=== PATIENT | male | born 1980 | race African-American/Black ===

== ENCOUNTER 2018-12-30 07:46 | Emergency (ER) | payer OTHER, SELFPAY ==
--- NOTE | 2018-12-30 08:14 | RAD ---
XR Chest Pa Lat STANDARD HISTORY: Shortness of breath with exertion COMPARISON: 06/04/2017 FINDINGS: The heart size is normal. The lungs are well expanded without focal areas of consolidation, pneumothorax or pleural effusions. No acute osseous abnormalities are seen.. IMPRESSION: No radiographic evidence of acute cardiopulmonary process.
[2018-12-30] MEDS ORDERED: cloNIDine 0.1 MG TAB ONE (08:26)
[2018-12-30 08:48] LABS: ALT (SGPT) 24 U/L (8-55); AST (SGOT) 38 U/L (5-34); Albumin 4.1 g/dL (3.5-5.0); Alkaline Phosphatase 53 U/L (40-150); Anion Gap 13 mmol/L (10-20); BUN (Urea Nitrogen) 32 mg/dL (8.9-20.6); Bilirubin, Total 1.1 mg/dL (0.2-1.2); Calc. Creatinine Clearance 0 mL/min (70-130); Calcium 9.2 mg/dL (7.8-10.44); Carbon Dioxide 27 mmol/L (22-29); Chloride 101 mmol/L (98-107); Estimated GFR-MDRD 24; Globulin 2.4 g/dL (2.4-3.5); Glucose 116 mg/dL (70-105); Potassium 3.1 mmol/L (3.5-5.1); Protein, Total 6.5 g/dL (6.0-8.3); Sodium 138 mmol/L (136-145)
[2018-12-30 08:53] LABS: Band 4 % (5-11); Bite Cells SLIGHT = 2-5 cells (100X) (0-1/hpf); Eosinophils 4 % (0-10); Hemoglobin 7.1 g/dL (14.0-18.0); Lymphocytes 22 % (21-51); MDiff Complete? YES; Mean Corpuscular HGB CONC 33.3 g/dL (32.0-36.0); Mean Corpuscular Hemoglobin 31.9 pg (27.0-31.0); Mean Corpuscular Volume 95.6 fL (78.0-98.0); Mean Platelet Volume 6.9 fL (7.4-10.4); Monocytes 5 % (0-10); Neutrophil 65 % (42-75); Platelet Count 73 thou/uL (130-400); Platelet Morphology Comment Appears Adequate; Polychromasia MODERATE = 3-4 cells (100X) (0-2/hpf); RBC Distribution Width 20.6 % (11.5-14.5); Red Blood Cell (RBC) Count 2.23 mill/uL (4.70-6.10); Schistocytes MARKED= >16 cells (100X) (0-1/hpf); White Blood Cell (WBC) Count 9.1 thou/uL (4.8-10.8)
[2018-12-30 08:59] LABS: CKMB 1.2 ng/mL (0-6.6)
[2018-12-30] MEDS ORDERED: niCARdipine 20MG In NaCl 20 MG/200 ML BAG ONE (09:08)
[2018-12-30 09:51] LABS: Lipase 43 U/L (8-78)
[2018-12-30 10:06] LABS: CK (CPK) 103 U/L (30-200)
--- NOTE | 2018-12-30 10:23 | CON ---
DATE OF CONSULTATION: HISTORY OF PRESENT ILLNESS: Mr. Chilel is a 38-year-old black male with known history of longstanding hypertension, admitted for uncontrolled hypertension. The patient has been on blood pressure medication for the last several years, amlodipine, metoprolol, and losartan. However, he presented to the ER with some shortness of breath on exertion. Chest x-ray was negative. However, blood pressure was noted to be 220/130. He is now being started on Cardene drip. REVIEW OF SYSTEMS: Positive for mild shortness of breath. No chest pain. No syncopal episode. No productive cough. No fever or chills. No diarrhea. No constipation. No dysuria. No urinary frequency. No fever or chills. Appetite and energy levels are fair. No diplopia. No joint pains. HOME MEDICATIONS: Includes amlodipine 10 mg tablet once a day, losartan one tablet daily dose unknown, and the patient is on metoprolol, dose unknown. PAST MEDICAL HISTORY: Longstanding hypertension. PAST SURGICAL HISTORY: Status post right ankle surgery. SOCIAL HISTORY: The patient lives in [place]. He is single, has one child. 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 Smoked one pack a day for the last 17 years. Occasional alcohol. Smokes marijuana occasionally. Education, high school. Denies any blood transfusion. He denies IV drug use. FAMILY HISTORY: No family history of ESRD. ALLERGIES: NONE. TRAUMA: Status post right ankle fracture. IMMUNIZATION: Not up-to-date. HOSPITALIZATIONS: Please see past medical history. PHYSICAL EXAMINATION: VITAL SIGNS: Blood pressure 210/130, heart rate 70. GENERAL: Awake, alert, comfortable, not in overt distress. SKIN: Adequate turgor. HEENT: He has pinkish conjunctivae. Anicteric sclerae. No neck mass. No carotid bruits. No JVD. CHEST: No deformities. LUNGS: Clear breath sounds. HEART: Normal sinus rhythm. No murmur. No gallops. No rubs. ABDOMEN: Globular, soft, nontender. No masses. EXTREMITIES: No edema. No deformities. NEUROLOGICAL: Awake and oriented to 3 spheres. Moving all extremities. No tremors or asterixis. No ataxia. LABORATORY DATA: December 30, 2018, sodium 138, potassium 3.1, chloride 101, carbon dioxide 27, BUN 32, creatinine 3.46, calcium is 9.2, AST 38, and ALT 24. CK is 975, troponin I 0.215. BNP is 1897. Albumin 4.1. Lipase pending. TSH 0.8. Chest x-ray; no CHF. No infiltrates. November 14, 2016, BUN 16 and creatinine 0.97. ASSESSMENT AND PLAN: 1. Acute kidney injury, this could be a hemodynamically-mediated renal dysfunction. Please note, the patient is on losartan. I would probably hold off the losartan. Consider starting on D5 half-normal saline at 100 mL/hour. We will review renal ultrasound with this patient and do a urinalysis. 2. Labile hypertension. Agree with IV Cardene drip. I will probably also start this patient on clonidine 0.1 mg b.i.d. 3. Mild hypokalemia, KCl 40 mEq one tab now. Thank you for the consult. We will continue to follow. Addendum: Patient evaluated by Hematology for his anemia and findings of schistocytes on peripheral smear - consideration for TTP was made and patient transferred to [place] where plamapheresis maybe available. Job ID: [id number] [facility] HEALTHAdryan
--- NOTE | 2018-12-30 10:52 | ULT ---
RENAL ULTRASOUND WITH DOPPLER EVALUATION: History: Renal failure. Hypertension. FINDINGS: Real-time imaging of the right and left kidneys were performed. The right kidney measures 10.7 cm. Th e left kidney 9.9 cm in size. No signs of any cyst, mass or obstruction. Slightly increased echogenic ity in the kidneys is present. DOPPLER EVALUATION WITH SPECTRAL ANALYSIS: The right renal artery velocity measurements are 102 cm/sec. The left are at 60 cm/sec. Aortic veloci ties are 136 cm/sec. Resistive index on the right is 0.63 and on the left 0.64. A small left pleural effusion is incidentally noted. The bladder is normal in position. IMPRESSION: 1. No definite evidence for renal artery stenosis. The left renal artery velocity measurements are sl ightly reduced as compared to the right side aortic velocity measurements. The resistive index is wit hin normal limits. 2. Slightly increased echogenicity to the cortex of both kidneys. Changes are minimal but could indic ate underlying medical renal parenchymal disease. 3. Small left pleural effusion. 4. The doppler portion with velocity measurements were somewhat difficult to obtain as the patient wa s unable to cooperate with breathing. This may also account for the somewhat reduced velocities on th e left side. POS: TPC
--- NOTE | 2018-12-30 11:04 | ULT ---
Please refer to the Renal Ultrasound for doppler findings. POS: TPC
--- NOTE | 2018-12-30 16:40 | CON ---
DATE OF CONSULTATION: REASON FOR CONSULTATION: Anemia and thrombocytopenia. HISTORY OF PRESENT ILLNESS: A 38-year-old male with longstanding uncontrolled hypertension, presenting to the hospital with shortness of breath. The patient states that he has had high blood pressure for approximately 15 years and is supposed to be taking amlodipine, metoprolol, and losartan, but that he is noncompliant with his medications and he says this is just because he is stubborn. On admission to the hospital, his blood pressure is noted to be as high as 265/ 140 and he has been started on a Cardene drip. His labs showed a hemoglobin of 7.1 and platelet count of 73 with marked schistocytes on peripheral smear. His BUN is 32 and creatinine 3.46 with an LDH of 975. Hematology was consulted to rule out TTP. The patient denies any neurologic symptoms, pain, or other complaints, other than shortness of breath. No fever or diarrhea. He states his symptoms have improved since he arrived to the ER and his blood pressure has improved. The patient denies any other medical problems. He is a long-term smoker, a pack a day for last 17 years with occasional marijuana use, but denies any illicit drugs. REVIEW OF SYSTEMS: Ten-point review of systems negative except as per HPI. PAST MEDICAL HISTORY: Hypertension. PAST SURGICAL HISTORY: Right ankle surgery. SOCIAL HISTORY: Smoker and marijuana use. No IV drugs. FAMILY HISTORY: Noncontributory. ALLERGIES: NONE. CURRENT MEDICATIONS: Reviewed. PHYSICAL EXAMINATION: VITAL SIGNS: Blood pressure 265/140 and on Cardene drip has improved to 180/ 100. The patient is not tachycardic. GENERAL APPEARANCE: The patient lying in bed, in no acute distress. HEENT: Normocephalic and atraumatic. CARDIAC: S1 and S2. Regular rhythm and rate. LUNGS: Clear to auscultation bilaterally. ABDOMEN: Soft, nondistended, and nontender. EXTREMITIES: There is no edema. NEUROLOGIC: Cranial nerves 2 through 12 are grossly intact. PSYCHIATRIC: Awake, alert, and oriented x3. SKIN: There is no rash. No petechiae noted. LABORATORY DATA: Hemoglobin 7.1, platelets 73, white blood cells 9.1, and marked schistocytes on smear. Sodium 138, potassium 3.1, BUN 32, creatinine 3.46, LDH 975, total bilirubin 1.1, AST 38, ALT 24, and alkaline phosphatase 53. IMAGING DATA: Chest x-ray, no pneumonia or CHF. ASSESSMENT AND PLAN: A 38-year-old male with hypertension, presenting with shortness of breath and found to have anemia with schistocytes and thrombocytopenia, along with acute kidney injury. 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 There is a concern for thrombotic thrombocytopenic purpura due to these findings. The patient's PLASMIC score is low risk with an approximate 4.3% risk of thrombotic thrombocytopenic purpura. 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 The treatment of this is blood pressure control. The treatment of thrombotic thrombocytopenic purpura is plasmapheresis and if there is any question of this disease process, then plasmapheresis should be promptly administered. We do not have plasmapheresis at this institution, so I do recommend transfer to [facility], where plasmapheresis can be promptly initiated if needed. As the patient does have a low risk of thrombotic thrombocytopenic purpura, he may be able to be monitored closely at [facility] with early initiation of plasmapheresis if needed. But, due to this, I do not believe he should stay at [facility] and should be transferred at this time. Thank you for this consult. Job ID: [id number] MTDD
== END 2018-12-30 11:05 | disposition short-term general hospital (02) ==
LOC: ERS 07:46
DX: M31.1 Thrombotic microangiopathy (principal); I11.0 Hypertensive heart disease with heart failure; I50.9 Heart failure, unspecified; N17.9 Acute kidney failure, unspecified; I16.0 Hypertensive urgency; F17.210 Nicotine dependence, cigarettes, uncomplicated
CPT/HCPCS: 36415; 71046; 76700; 76770; 80053; 82553; 83615; 83690; 83880; 84484; 85025; 85060; 93005; 96365; 96366

== ENCOUNTER 2019-05-19 09:38 | Inpatient (IN) | payer SELFPAY ==
[2019-05-19] MEDS ORDERED: Labetalol HCl 100 MG/20 ML VIAL ONE (10:04)
--- NOTE | 2019-05-19 10:17 | RAD ---
EXAM: Single view of the chest HISTORY: High blood pressure and shortness of breath COMPARISON: None FINDINGS: Single view of the chest shows an enlarged cardiomediastinal silhouette. There is no eviden ce of consolidation, mass, or pleural effusion. The bones are unremarkable. IMPRESSION: Cardiomegaly
[2019-05-19 10:25] LABS: Bilirubin Negative (Negative); Blood, Urine 3+ (Negative); Clarity Clear (Clear); Glucose, Urine (Dipstick) Normal (Negative); Leukocyte Negative Leu/uL (Negative); Nitrite Negative (Negative); Protein, Urine (Dipstick) 300 mg/dL (Neg-Trace); RBC/HPF Greater than 50 HPF (0-3); Squamous Epithelial 0-3 HPF (0-3); Urobilinogen Normal mg/dL (Less than 2)
[2019-05-19 10:26] LABS: Bacteria/HPF 1+ HPF (None Seen)
[2019-05-19 10:36] LABS: #Eosinphils 0.2 thou/uL (0.0-0.7); #Monocytes 0.8 thou/uL (0.11-0.59); #Neutrophils 5.9 thou/uL (1.40-6.50); %Basophils 0.5 % (0.0-1.0); %Eosinophils 2.4 % (0.0-10.0); %Lymphocytes 12.9 % (21.0-51.0); %Monocytes 10.5 % (0.0-10.0); %Neutrophils 73.7 % (42.0-75.0); Hemoglobin 7.7 g/dL (14.0-18.0); Mean Corpuscular HGB CONC 34.3 g/dL (32.0-36.0); Mean Corpuscular Hemoglobin 30.2 pg (27.0-31.0); Mean Platelet Volume 7.2 fL (7.4-10.4); Platelet Count 93 thou/uL (130-400); RBC Distribution Width 18.5 % (11.5-14.5); Red Blood Cell (RBC) Count 2.55 mill/uL (4.70-6.10); White Blood Cell (WBC) Count 7.9 thou/uL (4.8-10.8)
[2019-05-19 10:50] LABS: ALT (SGPT) 15 U/L (8-55); AST (SGOT) 20 U/L (5-34); Albumin 4.2 g/dL (3.5-5.0); Alkaline Phosphatase 66 U/L (40-150); Anion Gap 20 mmol/L (10-20); BUN (Urea Nitrogen) 66 mg/dL (8.9-20.6); Bilirubin, Total 0.9 mg/dL (0.2-1.2); Calc. Creatinine Clearance 0 mL/min (70-130); Calcium 9.4 mg/dL (7.8-10.44); Carbon Dioxide 22 mmol/L (22-29); Chloride 94 mmol/L (98-107); Estimated GFR-MDRD 7; Globulin 3.2 g/dL (2.4-3.5); Glucose 98 mg/dL (70-105); Protein, Total 7.4 g/dL (6.0-8.3); Sodium 133 mmol/L (136-145)
[2019-05-19 10:52] LABS: Potassium 2.6 mmol/L (3.5-5.1)
[2019-05-19] MEDS ORDERED: hydrALAZINE 20 MG/ML VIAL ONE (10:52)
[2019-05-19 10:55] LABS: Schistocytes MODERATE= 6-15 cells (100X) (0-1/hpf)
[2019-05-19 11:10] LABS: CKMB 2.5 ng/mL (0-6.6)
[2019-05-19] MEDS ORDERED: niCARdipine 20MG In NaCl 0 MG/0 ML BAG ONE (11:19)
[2019-05-19] MEDS ORDERED: Potassium Chloride 20 MEQ TAB ONE (11:19)
[2019-05-19] MEDS ORDERED: HYDROcodone/Acetaminophen 5/325 mg Tablet ONE (12:26)
[2019-05-19 14:34] LABS: Troponin I 0.169 ng/mL (< 0.028)
[2019-05-19] MEDS ORDERED: niCARdipine 20MG In NaCl 20 MG/200 ML BAG ONE ×2 (15:03→15:04)
[2019-05-19] MEDS ORDERED: Ondansetron PF 4 MG/2 ML Vial IVP PRN (15:19)
[2019-05-19] MEDS ORDERED: Acetaminophen 325 MG TAB PO PRN (15:19)
[2019-05-19] MEDS ORDERED: Senokot S 8.6-50 MG TAB PO PRN (15:19)
[2019-05-19] MEDS ORDERED: HYDROcodone/Acetaminophen 5/325 mg Tablet PO PRN (15:19)
[2019-05-19] MEDS ORDERED: HYDROcodone/Acetaminophen 7.5/325 mg Tablet PO PRN (15:26)
[2019-05-19] MEDS ORDERED: Morphine 2 MG/ML SYRINGE SLOW IVP PRN (15:51)
[2019-05-19] MEDS ORDERED: Amlodipine 5 MG TAB PO SCH (16:00)
[2019-05-19] MEDS ORDERED: Cephalexin 250 MG CAP PO SCH ×2 (16:00→21:00)
[2019-05-19] MEDS: Nicotine 21 MG PATCH TD SCH (16:11)
[2019-05-19 17:01] LABS: Troponin I 0.187 ng/mL (< 0.028)
[2019-05-19] MEDS: niCARdipine 25 MG in Sodium Chloride 0.9% 250 ML 250 ML IVPB SCH ×3 (17:09→21:20)
[2019-05-19] MEDS: Sodium Chloride 0.9% 1,000 ML IV SCH ×2 (17:18→22:05)
[2019-05-19 17:23] LABS: Amphetamine Not Detected (NotDetected); Barbiturates Screen Not Detected (NotDetected); Benzodiazepine Screen Not Detected (NotDetected); Cocaine Metabolite Screen Not Detected (NotDetected); Medtox Control Line Valid? VALID (VALID); Medtox Reader # READER 1; Methadone Not Detected (NotDetected); Methamphetamine Not Detected (NotDetected); Opiate Screen Not Detected (NotDetected); Oxycodone Screen Not Detected (NotDetected); Phencyclidine (PCP) Not Detected (NotDetected); THC/Cannabinoid Screen Not Detected (NotDetected); Tricyclic Screen Not Detected (NotDetected)
[2019-05-19] MEDS ORDERED: Aspirin 81 mg Enteric Coated Tablet PO SCH (19:00)
--- NOTE | 2019-05-19 19:07 | CON ---
DATE OF CONSULTATION: HISTORY OF PRESENT ILLNESS: Mr. Chilel is a 38-year-old black male, who presented to the ER for high blood pressure. He has not been compliant with his intake of blood pressure. On examination in the ER, the patient was also incidentally found to have worsening renal dysfunction. In addition, he was noted to be anemic with some schistocytes. He was seen at the emergency room back in December for a ? of TTP. He was sent to [place]. According to the patient, there was compressive workup with him, but he was never initiated on plasmapheresis. This makes me think that they may have not suspected TTP with him at [place]. On close questioning, the patient tells me he also left the hospital against medical advice. He now presents to the ER with worsening renal dysfunction. Of interest, this patient's mentation is clear and he denies any fever. He does have the acute kidney injury with some evidence of hemolysis as suggested by the schistocytes. He also has a very elevated blood pressure due to noncompliance. A discussion about dialysis was made also with this patient, which of course he declined. We are now here for further evaluation of his acute kidney injury. My bias is to just go ahead and proceed with a renal biopsy since this will help us with diagnosis with chronic renal failure. REVIEW OF SYSTEMS: Positive for generalized malaise. Positive for occasional shortness of breath. No fever. No chills. No confusion. No headache. No mentation changes. Appetite and energy level are decreased. No gross hematuria. No dysuria. No urinary frequency. No abdominal pain. Occasional back pain. CURRENT MEDICATIONS: 1. Amlodipine 5 mg p.o. daily. 2. Cephalexin 250 mg q.i.d. 3. Clonidine 0.2 mg p.o. b.i.d. 4. [place] 10/325 q.4 p.r.n. 5. Nicardipine drip. 6. Morphine sulfate 2 mg IV q.4. PAST MEDICAL HISTORY: 1. Chronic renal failure. 2. Hypertension. 3. History of anemia with schistocytes. PAST SURGICAL HISTORY: Status post right ankle surgery. SOCIAL HISTORY: The patient lives in [place]. He is single. He has one child. 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 Smoked one pack a day for the last 17 years. Occasional alcohol. Smokes marijuana occasionally. Education, high school. No blood transfusion. No IV drug abuse. FAMILY HISTORY: No family history of ESRD. ALLERGIES: NONE. TRAUMA: Status post right ankle fracture. IMMUNIZATION: Not up-to-date. HOSPITALIZATION: Please see past medical history. PHYSICAL EXAMINATION: VITAL SIGNS: Blood pressure is currently 171/78, heart rate 89, respiratory rate 23, pulse ox 99%. GENERAL: Awake, alert, comfortable, not in distress. SKIN: Adequate turgor. HEENT: Pale conjunctivae. Anicteric sclerae. NECK: No neck mass. No carotid bruits. No JVD. CHEST: No deformities. LUNGS: Clear breath sounds. No wheezing. No crackles. HEART: Normal sinus rhythm. No murmur. No gallops. No rubs. ABDOMEN: Globular, soft, nontender. No masses. EXTREMITIES: No edema. No deformities. NEUROLOGIC: Moving all extremities. No tremors. No asterixis. No ataxia. LABORATORY DATA: On May 19, 2019: White count 7.9, hemoglobin 7.7. Sodium 133, potassium 2.6, chloride 94, carbon dioxide 22, BUN 66, creatinine 10.19, AST 20, ALT 15, albumin is 4.2. Troponin-I 0.187. Chest x-ray, no CHF. Schistocytes moderate - 6 to 15 cells per high-power field. Renal ultrasound of December 30, 2018, shows no obstruction, increased echogenicity. Urinalysis of May 19, 2019, showed protein of 300 ASSESSMENT AND PLAN: 1. Chronic renal failure, unclear etiology, although thrombotic thrombocytopenic purpura versus hemolytic uremic syndrome is possibility. He does not have the systemic manifestation of thrombotic thrombocytopenic purpura. He may simply have a hemolytic uremic syndrome. We will reconsult Hematology. The patient was sent to [place] for further evaluation of possible thrombotic thrombocytopenic purpura, and at that time, no definitive diagnosis was made. However, this was also marred by the patient leaving against medical advice from the hospital. Since that time, he has not been compliant with his medications. 2. We can consider renal biopsy with this patient once he is more stable. 3. Labile hypertension, improved with IV nicardipine drip. 4. Proteinuria/acute kidney injury/chronic renal failure. My bias is to at least start him on normal saline at 125 mL/hour. He has declined hemodialysis. Consider consult with Hematology for further evaluation. Overall agree with current management. Job ID: [id number]
[2019-05-19] MEDS: Nitroglycerin 0.4 MG TAB (25 Tab Bottle) SL PRN ×2 (19:33→19:47)
[2019-05-19] MEDS: cloNIDine 0.2 MG TAB PO SCH (20:21)
[2019-05-19 23:35] LABS: Anisocytosis MODERATE=16-30 cells (100X) (0-5/hpf); Band 4 % (5-11); Eosinophils 1 % (0-10); Hemoglobin 6.9 g/dL (14.0-18.0); Lymphocytes 11 % (21-51); MDiff Complete? YES; Mean Corpuscular HGB CONC 33.7 g/dL (32.0-36.0); Mean Corpuscular Hemoglobin 29.8 pg (27.0-31.0); Mean Corpuscular Volume 88.6 fL (78.0-98.0); Mean Platelet Volume 5.9 fL (7.4-10.4); Monocytes 4 % (0-10); Neutrophil 80 % (42-75); Platelet Count 93 thou/uL (130-400); Platelet Morphology Comment Appears Decreased; RBC Distribution Width 18.4 % (11.5-14.5); Red Blood Cell (RBC) Count 2.31 mill/uL (4.70-6.10); Reflex for Review?? NO; Schistocytes MODERATE= 6-15 cells (100X) (0-1/hpf); White Blood Cell (WBC) Count 8.6 thou/uL (4.8-10.8)
--- NOTE | 2019-05-20 00:04 | HP ---
PRIMARY CARE PHYSICIAN: None. CHIEF COMPLAINT/REASON FOR ADMISSION: "I came to the emergency department because my tooth hurts and my blood pressure is too high." TIME OF EVALUATION: 12:30 p.m., patient is seen in the ED. HISTORY OF PRESENT ILLNESS: Mr. Chilel is a 38-year-old gentleman with a longstanding history of severe and uncontrolled hypertension, presenting to the hospital on a return visit, following a visit 12/30/2018, during which time he was noted to have elevated blood pressure, anemia, acute on chronic renal failure, thrombocytopenia, and schistocytes. He underwent Oncology evaluation in the emergency department at that time and was subsequently transferred to [facility] due to clinical concern for the possibility of TTP. In speaking with the patient today, he did not require plasmapheresis at [facility]. Per review of records, he was seen by Dr. Espinal, noting PLASMIC score low risk with approximately 4.3 risk of TTP. Mr. Chilel in [facility] ultimately signed himself out of the hospital on what sounds like hospital day 3. He returned home, takes antihypertensives intermittently, continue to smoke about 1 pack of cigarettes per day and noted over the last 1 week increasing pain overlying his right tooth. He endorses subjective fever, difficulty chewing the last 2 days. He has been off hydralazine for the last week, but doubled up on some Norvasc that he had left over from his last hospital discharge from [facility]. Denies any nausea, but does endorse easy bruisability. Appetite has been decent. No diarrhea, no focal neurological deficits. On presentation to the emergency department, he also reported chronic numbness in his back and down both legs that is intermittent, but more persistent for the last four days. His triage vital signs included a blood pressure of 247/130 each. He was placed on a Cardene infusion, chest x-ray showed cardiomegaly, but no pulmonary edema or pulmonary effusion, and lab revealed significant interval worsening of chronic renal disease, with creatinine of 10. Nephrology consultation was called, I also spoke separately with Dr. Zapata by phone. At this time, it is felt to be unlikely that the patient has TTP, more likely that his microangiopathic hemolytic anemia with schistocytes present on peripheral smear secondary to malignant hypertension, as was suspected during Hematology-Oncology evaluation in December as well. Subsequently, ICU referral made. PAST MEDICAL HISTORY: 1. History of illicit drug. 2. Tobacco dependence, ongoing. 3. Malignant/accelerated hypertension. PAST SURGICAL HISTORY: Right ankle surgery. 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 Endorses marijuana use. Denies IV drug use. FAMILY HISTORY: Both parents are living, both have essential hypertension. ALLERGIES: NONE. HOME MEDICATIONS: Norvasc, presently taking 10 mg p.o. twice daily, self discontinued hydralazine about 1 week ago, did not care for the side effects. REVIEW OF SYSTEMS: Full review of systems reviewed/addressed/negative except otherwise as mentioned. PHYSICAL EXAMINATION: VITAL SIGNS: At triage, blood pressure 247/138, pulse 87, respiratory rate 18, temperature 98.2, saturating 100% on room air. Followup blood pressures after initiation of nicardipine drip running from 160 to 190 systolic with diastolics 70 to 110. He has no oxygen requirement, is afebrile. GENERAL: Young gentleman, sitting up in bed, able to give a good history, speaking in full sentences. HEENT: Eyes with some mild conjunctival injection. No scleral icterus. Oropharynx is clear. He endorses pain in the posterior lower wisdom tooth area. LUNGS: Clear to auscultation bilaterally. HEART: Regular rate and rhythm with a systolic murmur 2/6 throughout the precordium. ABDOMEN: Soft/nontender/nondistended. EXTREMITIES: No clubbing/cyanosis/edema. NEUROLOGIC: He is able to move all extremities bilaterally to command, no focal neurological deficit. Proprioception and perception appear intact. SKIN: He does have some bruises present, particularly under the epicondylar space at the elbow and axilla. LABS/STUDIES: EKG personally reviewed, sinus rhythm at 86 beats per minute, left atrial enlargement, left ventricular hypertrophy, likely repolarization abnormality also present. Case discussed by phone with Dr. [place] from the emergency department as well as with Dr. Zapata from Nephrology. Mr. Chilel's hemoglobin is 7.7, hematocrit is 22.5, and platelet count is 93,000, MCV is 88. Chemistry panel; serum sodium 133, potassium 2.6, chloride 94, BUN 66, creatinine 10. Troponin levels are modestly abnormal at 0.197, essentially in the indeterminate range. BNP is elevated at 2522. Urinalysis reviewed, multiple red blood cells present, a few white blood cells are present, 3+ blood was present. Chest x-ray revealed cardiomegaly present, no pulmonary edema. However, no pleural effusions. IMPRESSION: 1. Malignant/accelerated hypertension. 2. Acute on chronic renal failure. 3. Thrombocytopenia. 4. Normocytic anemia. 5. Hypokalemia. 6. Possible dental infection. 7. Tobacco dependence. HOSPITAL COURSE: 1. Cardiology-indeterminate cardiac biomarkers, not clinically relevant in this scenario. Cardene drdarrell initiated, selective oral agents also in place. Compliance remains a significant barrier. Check 2D echocardiogram. 2. Renal-at this time, patient declines renal replacement therapy, Dr. Zapata will continue to monitor. Potassium has been repleted. 3. Pulmonary-recommend tobacco cessation. 4. Hematology-suspect schistocytes on peripheral smear secondary to malignant hypertension. Certainly some additional bone marrow pathology is present in this gentleman, may ultimately benefit from outpatient Hematology evaluation when blood pressure control has shown interval stability. 5. Infectious Disease-blood cultures x2. Empiric antibiotics to cover potential dental abscess. Follow up 2D echocardiogram. 6. Risk condition is high based on comorbidities/age/presentation. Job ID: [id number]
[2019-05-20] MEDS: niCARdipine 25 MG in Sodium Chloride 0.9% 250 ML 250 ML IVPB SCH ×2 (00:37→05:32)
[2019-05-20] MEDS: cloNIDine 0.1 MG TAB PO PRN (01:19)
[2019-05-20] MEDS: HYDROcodone/Acetaminophen 10/325 mg Tablet PO PRN ×2 (04:00→20:16)
[2019-05-20] MEDS: Sodium Chloride 0.9% 1,000 ML IV SCH ×2 (06:08→14:37)
--- NOTE | 2019-05-20 07:26 | CON ---
DATE OF CONSULTATION: HISTORY OF PRESENT ILLNESS: Jessenia Chilel is a 38-year-old gentleman, who presently did not have a primary care physician. He presents to the ER with uncontrolled hypertension and stop taking his blood pressure medication because they were making him little crazy. He was seen several months ago for anemia and thrombocytopenia. Pack-a-day smoker. Hypertension. Occasional marijuana use, but no other illicit drugs. Who apparently had schistocytes and thrombocytopenia, will repeat EKG. They thought he may have TTP. Apparently, he was transferred to [facility] as per the note from the veterinary medicine scientist. The patient is a terrible historian. He does not give any additional information at this time. Complaining of severe tooth pain causing discomfort and lack of thinking. PAST MEDICAL HISTORY: Hypertension only. No history of diabetes. PAST SURGICAL HISTORY: Ankle surgery, fracture. MEDICATIONS: Chronic medication apparently none that he can recollect, but apparently he did take hydralazine for a period of time. SOCIAL HISTORY: Does drink from time to time. 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 REVIEW OF SYSTEMS: Ten-point negative. ALLERGIES: NONE. PHYSICAL EXAMINATION: GENERAL: Appears to be in no acute distress. He is on a Cardene drip. VITAL SIGNS: Blood pressure , pulse 89, and respiratory rate 18. CHEST: Decreased breath sounds. No wheezing. CARDIAC: Normal S1 and S2. No gallops. ABDOMEN: No mass. LABORATORY DATA: Creatinine is elevated markedly at 10, BUN is 66. In December, his creatinine at the time when he was transferred to [facility] was 3.4. It is normal at 0.97 earlier. His BUN is 66, now it was 32 at the time of his transfer to [facility]. Hemoglobin and hematocrit of 7 and 23. BNP [id number]. Urine was normal. Chest x-ray shows cardiomegaly without any acute infiltrates. Otherwise on examination, he is in no distress. Chest, no wheezing or crackles. Cardiac, normal S1 and S2. No gallops. Abdomen, uncontrolled hypertension and acute renal failure. Apparently, pain in the tooth. I looked at physically, I did not see any obvious infection, anemia. PLAN: Continue antihypertensive, IV medication, and Cardene. Await input from Nephrology. Probably start oral antihypertensive medication. Pain relief for his tooth. Supportive care, PT. Consultation note, 70 minutes, 50% direct patient care. Job ID: [id number]
[2019-05-20 07:47] LABS: #Eosinphils 0.2 thou/uL (0.0-0.7); #Lymphocytes 1.2 thou/uL (1.20-3.40); #Monocytes 0.8 thou/uL (0.11-0.59); %Basophils 0.6 % (0.0-1.0); %Eosinophils 2.1 % (0.0-10.0); %Lymphocytes 16.7 % (21.0-51.0); %Monocytes 10.7 % (0.0-10.0); %Neutrophils 69.8 % (42.0-75.0); Mean Corpuscular Hemoglobin 30.1 pg (27.0-31.0); Mean Corpuscular Volume 88.6 fL (78.0-98.0); Mean Platelet Volume 11.2 fL (7.4-10.4); Platelet Count 113 thou/uL (130-400); RBC Distribution Width 18.3 % (11.5-14.5); Red Blood Cell (RBC) Count 2.32 mill/uL (4.70-6.10); White Blood Cell (WBC) Count 7.1 thou/uL (4.8-10.8)
[2019-05-20 07:58] LABS: Anion Gap 18 mmol/L (10-20); BUN (Urea Nitrogen) 59 mg/dL (8.9-20.6); Calc. Creatinine Clearance 13 mL/min (70-130); Carbon Dioxide 17 mmol/L (22-29); Chloride 102 mmol/L (98-107); Estimated GFR-MDRD 8; Glucose 90 mg/dL (70-105); Sodium 134 mmol/L (136-145)
[2019-05-20] MEDS ORDERED: Carvedilol 25 MG TAB PO SCH (08:00)
[2019-05-20] MEDS ORDERED: Carvedilol 3.125 MG TAB PO SCH ×2 (08:00→08:45)
[2019-05-20] MEDS: cloNIDine 0.2 MG TAB PO SCH ×2 (08:06→20:17)
[2019-05-20 08:10] LABS: Potassium 2.7 mmol/L (3.5-5.1)
[2019-05-20] MEDS ORDERED: Amlodipine 5 MG TAB PO SCH ×2 (08:30→09:00)
[2019-05-20] MEDS: Amlodipine 10 MG TAB PO SCH (08:41)
[2019-05-20] MEDS ORDERED: Carvedilol 6.25 MG TAB PO SCH (08:45)
--- NOTE | 2019-05-20 09:17 | PRG ---
DATE OF SERVICE: 05/20/2019 SUBJECTIVE: This morning, he is better. Complaining of less tooth pain, less chest pain, and shortness of breath. OBJECTIVE: VITAL SIGNS: Blood pressure is still elevated at 180/93, he is on Cardene. Pulse 80, respiratory rate 18. Afebrile. CHEST: Decreased breath sounds. No wheezing. CARDIAC: Normal S1, S2. No gallops. ABDOMEN: No masses. LABORATORY DATA: White count is 7, H and H is 7 and 20, platelet count is 113. Drug screen was negative. He got schistocytes. Potassium 2.7, creatinine is 9.2, BUN is 59. IMPRESSION: Uncontrolled hypertension, renal failure, thrombocytopenia. adjust blood pressure medication. Continue PT, supportive care. We will follow while in the ICU. Job ID: [id number] [facility]ITALAdryan
[2019-05-20] MEDS ORDERED: Potassium Chloride 20 MEQ TAB PO SCH (09:30)
[2019-05-20] MEDS: Cephalexin 250 MG CAP PO SCH (10:21)
[2019-05-20] MEDS: Minoxidil 2.5 MG TAB PO SCH (10:21)
--- NOTE | 2019-05-20 10:59 | PRG ---
DATE OF SERVICE: 05/20/2019 SUBJECTIVE: Mr. Chilel is a 38-year-old black male, who was seen for his chronic renal failure as well as labile hypertension. He was seen back on December due to an elevated creatinine. At that time, there was a suspicion he may have TTP. He was transferred to [place]. According to the patient, he never really received treatment. He did not undergo plasmapheresis. He was undergoing workup at that time. As previously mentioned in my note, the possibility is that the patient may not have TTP. He may have HUS due to the schistocytes on the CBC blood smear. Renal function has worsen over time. I offered hemodialysis, but the patient declined. I am still not ruling out a possible renal biopsy. The point against the renal biopsy is that renal failure is chronic in nature and may not give much histological information. No other complaints today. OBJECTIVE: VITAL SIGNS: Blood pressure is much improved. Blood pressure 188/92 with a heart rate of 80, respiratory rate 18, and pulse ox 98%. GENERAL: Noted to be awake, alert, comfortable, not in distress. SKIN: Adequate turgor. HEENT: He has a slightly pale conjunctivae. Anicteric sclerae. No neck mass. No carotid bruits. No JVD. CHEST: No deformities. LUNGS: Clear breath sounds. HEART: Normal sinus rhythm. No murmurs, gallops, or rubs. ABDOMEN: Globular, soft, nontender. No masses. EXTREMITIES: No edema. No deformities. MEDICATIONS: Medications of May 20, 2019 were reviewed. LABORATORY DATA: Laboratories of May 20, 2019; white count 7.1, hemoglobin 7. Sodium 134, potassium 2.7, chloride 102, carbon dioxide 17, BUN 59, creatinine 9.43, glucose 90, calcium 9. Troponin I 0.187. ASSESSMENT AND PLAN: 1. Hemolytic anemia-repeat CBC did not show any significant schistocytes at the present time. Hematology consult has already been done. Continue current supportive care. Continue IV hydration. 2. Chronic renal failure, unclear etiology. Consider renal biopsy. The point against the renal biopsy is that the renal dysfunction may be chronic in nature. Continue also IV hydration for the possible hemolytic anemia. 3. Anemia-evidence of hemolysis. In addition, once the blood pressure is better controlled, we will start Epogen. 4. Labile hypertension, improving. Add minoxidil 5 mg tablet daily. 5. The patient is still declining any invasive procedure such as dialysis and renal biopsy. I left my number for the father to call me. Job ID: [id number]
[2019-05-20 12:34] LABS: Ref Lab Test Ordered ADAMTS 13; Reference Lab Name LABCORP
[2019-05-20 15:12] VITALS: BMI 26.6
[2019-05-20] MEDS: Nicotine 21 MG PATCH TD SCH (16:31)
[2019-05-20] MEDS: Carvedilol 25 MG TAB PO SCH (16:36)
--- NOTE | 2019-05-20 17:36 | EKG ---
Test Reason : STAT Blood Pressure : / mmHG Vent. Rate : 093 BPM Atrial Rate : 093 BPM P-R Int : 138 ms QRS Dur : 090 ms QT Int : 450 ms P-R-T Axes : 048 006 008 degrees QTc Int : 559 ms Normal sinus rhythm Possible Left atrial enlargement Left ventricular hypertrophy Septal infarct , age undetermined cannot be excluded Prolonged QT Abnormal ECG Confirmed by JUNE SCHMITZ ([id number]) on 05/20/2019 5:36:21 PM Referred By: DUANE Confirmed By:JUNE SCHMITZ
--- NOTE | 2019-05-20 18:00 | PDOC.HOSPP ---
- Subjective Encounter Date: 05/20/19 Encounter Time: 15:40 Subjective: No CP, no nausea/vomiting/SOB/SPARKS. Resting comfortably, eating well. Declines HD catheter placement. - Objective Vital Signs & Weight: Vital Signs (12 hours) Temp BP Pulse Ox 05/20/19 16:00 97.7 F 05/20/19 08:41 188/92 H 05/20/19 08:40 188/92 H 05/20/19 08:07 180/93 H 05/20/19 08:06 180/93 H 05/20/19 08:00 99 05/20/19 07:00 98.1 F Weight Admit Weight 196 lb Weight 196 lb 6.91 oz Most Recent Monitor Data Heart Rate from ECG 76 NIBP 156/89 NIBP BP-Mean 111 Respiration from ECG 17 SpO2 95 I&O: 05/19/19 05/20/19 05/21/19 06:59 06:59 06:59 Intake Total 4174 2278 Output Total 1475 825 Balance 2771 1453 Result Diagrams: 05/20/19 07:18 05/20/19 07:18 Hospitalist ROS - Medication Medications: Active Medications Generic Name Dose Route Start Last Admin Trade Name Freq PRN Reason Stop Dose Admin Hydrocodone Bitart/Acetaminophen 1 tab 05/19/19 15:19 05/20/19 04:00 [place] 10/325 PO 1 tab Q4H PRN Administration Moderate Pain (4-6) Amlodipine Besylate 10 mg 05/20/19 09:00 05/20/19 08:41 Norvasc PO Not Given DAILY STEVEN Carvedilol 25 mg 05/20/19 17:00 05/20/19 16:36 Coreg PO 25 mg BID-WM STEVEN Administration Cephalexin 250 mg 05/20/19 09:00 05/20/19 10:21 Keflex PO 250 mg DAILY STEVEN Administration Clonidine 0.2 mg 05/19/19 21:00 05/20/19 08:06 Catapres PO 0.2 mg BID STEVEN Administration Clonidine 0.1 mg 05/19/19 20:27 05/20/19 01:19 Catapres PO 0.1 mg Q4H PRN Administration SBP > 160, DBP > 100 Sodium Chloride 1,000 mls @ 125 mls/hr 05/19/19 17:15 05/20/19 14:37 Normal Saline 0.9% IV 1,000 mls .Q8H STEVEN Administration Minoxidil 5 mg 05/20/19 09:00 05/20/19 10:21 Minoxidil PO 5 mg DAILY STEVEN Administration Morphine Sulfate 2 mg 05/19/19 15:51 05/19/19 15:58 Morphine SLOW IVP 2 mg Q4H PRN Administration BREAKTHRU PAIN Nicotine 21 mg 05/19/19 15:30 05/20/19 16:31 Nicoderm Patch TD Not Given Q24HR STEVEN Nitroglycerin 0.4 mg 05/19/19 18:52 05/19/19 19:47 Nitrostat SL 0.4 mg Q5MIN PRN Administration Chest Pain Sodium Chloride 10 ml 05/19/19 21:00 05/20/19 08:08 Flush - Normal Saline IVF 10 ml Q12HR STEVEN Administration - Exam General Appearance: NAD General - other findings: Resting comfortably Eye: anicteric sclera ENT: normocephalic atraumatic Neck: supple, no JVD Heart: RRR Heart - other findings: soft systolic flow murmur Respiratory: CTAB Gastrointestinal: soft, non-tender Extremities: no edema Skin: no rashes Neurological: no focal deficits Musculoskeletal: normal strength, no muscle wasting Psychiatric: A&O x 3 Hosp A/P (1) Acute renal failure Status: Acute (2) Microangiopathic hemolytic anemia Code(s): D59.4 - OTHER NONAUTOIMMUNE HEMOLYTIC ANEMIAS Status: Acute (3) Accelerated hypertension Code(s): I10 - ESSENTIAL (PRIMARY) HYPERTENSION Status: Acute (4) Tooth ache Code(s): K08.89 - OTHER SPECIFIED DISORDERS OF TEETH AND SUPPORTING STRUCTURES Status: Acute (5) Thrombocytopenia Code(s): D69.6 - THROMBOCYTOPENIA, UNSPECIFIED Status: Acute (6) Normocytic anemia Code(s): D64.9 - ANEMIA, UNSPECIFIED Status: Acute (7) Tobacco dependence Code(s): F17.200 - NICOTINE DEPENDENCE, UNSPECIFIED, UNCOMPLICATED Status: Acute (8) Hypokalemia Code(s): E87.6 - HYPOKALEMIA Status: Acute - Plan 1. Renal - discussed w/Dr. Zapata. Dialysis recommended, patient declines. Labs reviewed. 2. Toothache - keflex 3. Cards - HTN, minoxidil added, continue Norvasc/Coreg. Cardene off; transfer to tele; echo reading severe concentric LVH, grade II diastolic dysfunction, mild to moderate MR 4. 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 Once stabilized, may benefit from outpt heme workup. First, BP control is the priority. 5. Pulm - rec tobacco cessation 6. UDS negative 7. Potassium repletion given Transfer to tele.
[2019-05-21] MEDS: Sodium Chloride 0.9% 1,000 ML IV SCH ×4 (01:41→21:36)
[2019-05-21] MEDS: HYDROcodone/Acetaminophen 10/325 mg Tablet PO PRN (05:19)
[2019-05-21 06:14] LABS: #Eosinphils 0.2 thou/uL (0.0-0.7); #Lymphocytes 1.3 thou/uL (1.20-3.40); #Monocytes 0.6 thou/uL (0.11-0.59); #Neutrophils 3.4 thou/uL (1.40-6.50); %Basophils 0.7 % (0.0-1.0); %Eosinophils 3.5 % (0.0-10.0); %Lymphocytes 23.3 % (21.0-51.0); %Monocytes 10.2 % (0.0-10.0); %Neutrophils 62.4 % (42.0-75.0); Hemoglobin 7.2 g/dL (14.0-18.0); Mean Corpuscular HGB CONC 33.3 g/dL (32.0-36.0); Mean Corpuscular Hemoglobin 30.2 pg (27.0-31.0); Mean Corpuscular Volume 90.5 fL (78.0-98.0); Mean Platelet Volume 10.1 fL (7.4-10.4); Platelet Count 139 thou/uL (130-400); RBC Distribution Width 18.5 % (11.5-14.5); Red Blood Cell (RBC) Count 2.39 mill/uL (4.70-6.10); White Blood Cell (WBC) Count 5.5 thou/uL (4.8-10.8)
[2019-05-21 06:27] LABS: Anion Gap 17 mmol/L (10-20); BUN (Urea Nitrogen) 59 mg/dL (8.9-20.6); Calc. Creatinine Clearance 14 mL/min (70-130); Calcium 9.1 mg/dL (7.8-10.44); Carbon Dioxide 18 mmol/L (22-29); Chloride 104 mmol/L (98-107); Estimated GFR-MDRD 8; Glucose 81 mg/dL (70-105); Phosphorus 5.9 mg/dL (2.3-4.7); Potassium 3.5 mmol/L (3.5-5.1); Sodium 135 mmol/L (136-145)
[2019-05-21 06:33] LABS: Troponin I 1.458 ng/mL (< 0.028)
[2019-05-21] MEDS ORDERED: Aspirin 325 mg Enteric Coated Tablet PO SCH ×2 (09:00)
--- NOTE | 2019-05-21 09:00 | PRG ---
DATE OF SERVICE: 05/21/2019 SUBJECTIVE: This morning, he said he is better. No more pain. No tooth pain. No shortness of breath. OBJECTIVE: VITAL SIGNS: Saturations are 98% on room air, temperature 98, pulse 69, blood pressure improved 169/93. GENERAL: He is being slowly hydrated. CHEST: Decreased breath sounds. No wheezing. CARDIAC: Normal S1, S2. No gallops. ABDOMEN: No masses. LABORATORY DATA: Creatinine is still elevated at 8. White count normal, H and H 7 and 21, and platelet count is back to normal. IMPRESSION: Thrombocytopenia, uncontrolled hypertension, hypertrophic myocardium, renal failure. Nephrology following. Pulmonary choe, at this stage, nothing additional to offer. We will follow at a distance. Please call, if needed. Job ID: [id number]
--- NOTE | 2019-05-21 09:47 | PRG ---
DATE OF SERVICE: 05/21/2019 SUBJECTIVE: Mr. Chilel is a 38-year-old black male with known history of chronic renal failure, admitted for labile hypertension. Blood pressure is slightly improving. He has been started on p.o. minoxidil. We can increase this as needed. However, we also have noted his chronic renal failure has worsened over time. The exact etiology remains unknown. It is possible with the finding on the urinalysis of protein and hematuria, that he may have underlying FSGS. This morning, he has no new complaints. I have offered to initiate dialysis with him. He is still declining. He is uncertain whether he wants to proceed with this. The patient denies any chest pain, shortness of breath, nausea, or vomiting. OBJECTIVE: VITAL SIGNS: Blood pressure is 163/93, heart rate 69, respiratory rate 18, temperature 98, and pulse ox 97%. GENERAL EXAM: The patient is awake, alert, comfortable, not in distress. SKIN: Adequate turgor. HEENT: He has pale conjunctivae. Anicteric sclerae. NECK: No neck mass. No carotid bruits. No JVD. CHEST: No deformities. LUNGS: Clear breath sounds. No wheezing. No crackles. HEART: Normal sinus rhythm. No murmurs, gallops, or rubs. ABDOMEN: Globular, soft, nontender. No masses. EXTREMITIES: No edema. No deformities. MEDICATIONS: Medications of May 21, 2019, was reviewed. LABORATORY DATA: Laboratories of May 21, 2019, white count 5.5, hemoglobin 7.2, and platelet count 139,000. No evidence of schistocytes. Sodium 135, potassium 3.5, chloride 104, carbon dioxide 18, BUN 59, creatinine 8.81. GFR 8 mL/minute. Calcium 9.1, phosphorus 5.9. PTH is 385. ASSESSMENT AND PLAN: 1. Chronic renal failure. Exact etiology is unclear. Although with the proteinuria and hematuria, I suspect possibility of FSGS with him. Consider also doing hepatitis B and C profile as well as an ANCA with this patient for completion of the workup. I offered hemodialysis, the patient has declined. 2. Anemia. Start Epogen once the blood pressure is better controlled. 3. Hypertension. Increase minoxidil from 5 to 10 mg tablet once a day. 4. I am hesitant to proceed with a biopsy since I feel that with the chronic renal failure, we will not gain much information from a biopsy with this patient. 5. Overall agree with current management. Job ID: [id number]
[2019-05-21] MEDS: Amlodipine 10 MG TAB PO SCH (10:15)
[2019-05-21] MEDS: Carvedilol 25 MG TAB PO SCH ×2 (10:16→18:07)
[2019-05-21] MEDS: Cephalexin 250 MG CAP PO SCH (10:16)
[2019-05-21] MEDS: Minoxidil 2.5 MG TAB PO SCH (10:16)
[2019-05-21] MEDS: cloNIDine 0.2 MG TAB PO SCH (10:17)
[2019-05-21] MEDS: Sevelamer Carbonate 800 MG TAB PO SCH ×2 (11:44→18:07)
[2019-05-21 13:01] LABS: Platelet Count 147 thou/uL (130-400)
[2019-05-21 13:39] LABS: EPI 229 SEC (67-199)
[2019-05-21 13:44] LABS: ADP 144 SEC (39-127)
[2019-05-21 13:45] LABS: ADP Status Message No Message
[2019-05-21] MEDS: Nicotine 21 MG PATCH TD SCH (18:08)
[2019-05-21] MEDS: cloNIDine 0.1 MG TAB PO PRN (18:17)
[2019-05-21] MEDS ORDERED: NIFEdipine XL 30 MG TAB PO SCH (19:00)
[2019-05-21] MEDS: cloNIDine 0.1 MG TAB PO SCH (21:37)
--- NOTE | 2019-05-21 22:56 | CON ---
DATE OF CONSULTATION: 05/21/2019 REASON FOR CONSULTATION: 1. Severe uncontrolled hypertension. 2. Renal failure. 3. Anemia. 4. Non-compliance. 5. Increased troponin level, probably demand ischemia type 2 non-ST elevation myocardial infarction. HISTORY OF PRESENT ILLNESS: Mr. Chilel is a 38-year-old man with history of severe uncontrolled high blood pressure. The patient has a long history of uncontrolled hypertension. He was recently evaluated at [facility] in [place]. He was put on multiple medications including hydralazine, but did not feel well with these and therefore, he stopped taking all his medicines. The patient states he does not feel well with the medicines and therefore, he quit taking them. The patient did not have chest pain or pressure, but found to have increased cardiac enzymes, also severe concentric left ventricular hypertrophy. Blood pressures were recorded in the 195/105 range. The patient has also been diagnosed with possible TTP. The patient did respond to a Cardene infusion in [place]. His blood pressure was 247/130 at that time. PAST HISTORY: 1. Hypertension, not controlled. 2. Non-compliance. SOCIAL HISTORY: He smokes a pack of cigarettes per day. 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 FAMILY HISTORY: The patient tells me his father is a clam dredger. ALLERGIES: NONE. MEDICATIONS: 1. Amlodipine 10 mg twice a day, not taking. 2. Hydralazine, not taking. Did not feel well on hydralazine. REVIEW OF SYSTEMS: Reviewed. Please see the notes. PHYSICAL EXAMINATION: VITAL SIGNS: Initial blood pressure is 247/138 and pulse 87. HEENT: Eyes, sclerae nonicteric. Mouth, mucous membranes are moist. NECK: Supple. No lymphadenopathy. LUNGS: Clear. No wheezing, rales, or rhonchi. CARDIAC: Normal S1, normal S2. There is a soft systolic ejection murmur in left lower sternal border. No diastolic murmur. No S3. ABDOMEN: Soft and nontender. EXTREMITIES: No clubbing. No cyanosis. He has no edema. Good peripheral pulses. LABORATORY DATA: The patient's creatinine was 10.19, now it is down to 8.8. The patient's hemoglobin is 7.2, MCV is 90. DIAGNOSTIC DATA: EKG sinus rhythm, left ventricular hypertrophy with repolarization changes of a severe voltage increase. Echocardiogram revealed a severe concentric left ventricular hypertrophy, ejection fraction 55% to 60%, elevation of pulmonary artery pressure. The posterior wall diastolic thickness is 1.5, interventricular septal thickness 1.4. ASSESSMENT: 1. Uncontrolled hypertension, longstanding. 2. Renal failure related to uncontrolled hypertension. 3. History of non-compliance. 4. Increased troponin, demand ischemia resulting in type 2 non-ST elevation infarction. 5. Anemia. PLAN: 1. Try to simplify medicines. Hopefully, could be treated with carvedilol and Procardia XL and I think, if we gave him too many medicines, he is on high risk of stopping all the medicines again. 2. We will avoid hydralazine. This did not feel well with that. 3. Be reasonable to keep him a day or two and then try to arrange for good outpatient followup. 4. He takes his medicines. We discussed that he would get the Procardia XL with a good Rx card for 25 dollars a month that is probably going to be the most helpful medicine for his blood pressure control. Job ID: [id number]
--- NOTE | 2019-05-21 23:10 | PDOC.HOSPP ---
- Subjective Encounter Date: 05/21/19 Encounter Time: 17:00 Subjective: Patient seen and examined for HTN crisis. No CP or SOB. No new complaints. No overnight events - Objective Vital Signs & Weight: Vital Signs (12 hours) Temp Pulse Resp BP BP Pulse Ox 05/21/19 21:37 173/90 H 05/21/19 19:02 187/105 H 05/21/19 18:17 187/105 H 05/21/19 18:10 98.8 F 76 16 187/105 H 94 L 05/21/19 11:15 97.6 F 70 20 177/107 H 100 Weight Admit Weight 196 lb Weight 203 lb 14.4 oz Most Recent Monitor Data Heart Rate from ECG 76 NIBP 156/89 NIBP BP-Mean 111 Respiration from ECG 17 SpO2 95 I&O: 05/20/19 05/21/19 05/22/19 06:59 06:59 06:59 Intake Total 4174 4178 480 Output Total 1475 1250 Balance 2699 3708 480 Result Diagrams: 05/22/19 04:44 05/22/19 04:44 EKG Reviewed by me: Yes (Tele SR) Hospitalist ROS - Review of Systems Respiratory: denies: cough, dry, shortness of breath, hemoptysis, SOB with excertion, pleuritic pain, sputum, wheezing, other Cardiovascular: denies: chest pain, palpitations, orthopnea, paroxysmal noc. dyspnea, edema, light headedness, other Gastrointestinal: denies: nausea, vomitting, abdominal pain, diarrhea, constipation, melena, hematochezia, other - Medication Medications: Active Medications Generic Name Dose Route Start Last Admin Trade Name Freq PRN Reason Stop Dose Admin Hydrocodone Bitart/Acetaminophen 1 tab 05/19/19 15:19 05/21/19 05:19 [place] 10/325 PO 1 tab Q4H PRN Administration Moderate Pain (4-6) Carvedilol 25 mg 05/20/19 17:00 05/21/19 18:07 Coreg PO 25 mg BID-WM STEVEN Administration Cephalexin 250 mg 05/20/19 09:00 05/21/19 10:16 Keflex PO 250 mg DAILY STEVEN Administration Clonidine 0.1 mg 05/19/19 20:27 05/21/19 18:17 Catapres PO 0.1 mg Q4H PRN Administration SBP > 160, DBP > 100 Clonidine 0.1 mg 05/21/19 21:00 05/21/19 21:37 Catapres PO 0.1 mg BID STEVEN Administration Sodium Chloride 1,000 mls @ 75 mls/hr 05/21/19 14:06 05/21/19 21:36 Normal Saline 0.9% IV 1,000 mls .[id number] STEVEN Administration Morphine Sulfate 2 mg 05/19/19 15:51 05/19/19 15:58 Morphine SLOW IVP 2 mg Q4H PRN Administration BREAKTHRU PAIN Nicotine 21 mg 05/19/19 15:30 05/21/19 18:08 Nicoderm Patch TD Not Given Q24HR STEVEN Nitroglycerin 0.4 mg 05/19/19 18:52 05/19/19 19:47 Nitrostat SL 0.4 mg Q5MIN PRN Administration Chest Pain Sevelamer Carbonate 800 mg 05/21/19 12:00 05/21/19 18:07 Renvela PO 800 mg TID-WM STEVEN Administration Sodium Chloride 10 ml 05/19/19 21:00 05/21/19 21:38 Flush - Normal Saline IVF Not Given Q12HR STEVEN - Exam General Appearance: NAD Heart: RRR, no rubs Respiratory: CTAB, no wheezes, no ronchi Gastrointestinal: soft, non-tender, normal bowel sounds Extremities: no edema Neurological: no new deficit Hosp A/P (1) Hypertensive emergency Code(s): I16.1 - HYPERTENSIVE EMERGENCY Status: Acute (2) LEXI (acute kidney injury) Code(s): N17.9 - ACUTE KIDNEY FAILURE, UNSPECIFIED Status: Acute (3) CKD (chronic kidney disease) stage 3, GFR 30-59 ml/min Code(s): N18.3 - CHRONIC KIDNEY DISEASE, STAGE 3 (MODERATE) Status: Acute (4) Thrombocytopenia Code(s): D69.6 - THROMBOCYTOPENIA, UNSPECIFIED Status: Acute (5) Tobacco dependence Code(s): F17.200 - NICOTINE DEPENDENCE, UNSPECIFIED, UNCOMPLICATED Status: Acute - Plan Cont Minoxidil Cont Amlodipine Cont Coreg Reduce IVF AM labs Cont other meds as above
[2019-05-22] MEDS: cloNIDine 0.1 MG TAB PO PRN (00:29)
[2019-05-22] MEDS: hydrALAZINE 20 MG/ML VIAL SLOW IVP PRN ×2 (03:03→23:52)
[2019-05-22 05:45] LABS: #Eosinphils 0.2 thou/uL (0.0-0.7); #Lymphocytes 1.1 thou/uL (1.20-3.40); #Monocytes 0.6 thou/uL (0.11-0.59); %Basophils 0.2 % (0.0-1.0); %Eosinophils 2.7 % (0.0-10.0); %Lymphocytes 16.1 % (21.0-51.0); %Monocytes 8.8 % (0.0-10.0); %Neutrophils 72.1 % (42.0-75.0); Hemoglobin 6.6 g/dL (14.0-18.0); Mean Corpuscular HGB CONC 33.8 g/dL (32.0-36.0); Mean Corpuscular Hemoglobin 30.9 pg (27.0-31.0); Mean Corpuscular Volume 91.3 fL (78.0-98.0); Mean Platelet Volume 10.1 fL (7.4-10.4); Platelet Count 171 thou/uL (130-400); RBC Distribution Width 18.4 % (11.5-14.5); Red Blood Cell (RBC) Count 2.15 mill/uL (4.70-6.10); White Blood Cell (WBC) Count 6.9 thou/uL (4.8-10.8)
[2019-05-22] MEDS ORDERED: NIFEdipine XL 60 MG TAB PO SCH ×4 (06:00→09:15)
[2019-05-22 06:10] LABS: Anion Gap 15 mmol/L (10-20); BUN (Urea Nitrogen) 62 mg/dL (8.9-20.6); Calc. Creatinine Clearance 15 mL/min (70-130); Calcium 9.1 mg/dL (7.8-10.44); Carbon Dioxide 17 mmol/L (22-29); Chloride 106 mmol/L (98-107); Estimated GFR-MDRD 8; Glucose 80 mg/dL (70-105); Potassium 3.2 mmol/L (3.5-5.1); Sodium 135 mmol/L (136-145)
[2019-05-22 06:28] LABS: Ferritin 301.55 ng/mL (22-322)
[2019-05-22 06:35] LABS: HBSAg Index 0.17 S/CO (0-0.99); Hep B Surf Ag Non-Reactive S/CO (NonReactive); Hep C IgG Ab Non-Reactive (NonReactive); Hep C Index 0.04 S/CO (0-0.79)
[2019-05-22] MEDS: Sevelamer Carbonate 800 MG TAB PO SCH ×3 (08:22→16:21)
[2019-05-22] MEDS: Cephalexin 250 MG CAP PO SCH (08:22)
[2019-05-22] MEDS: Carvedilol 25 MG TAB PO SCH ×2 (08:23→16:21)
[2019-05-22] MEDS: cloNIDine 0.1 MG TAB PO SCH (08:23)
[2019-05-22] MEDS: Calcitriol 0.25 MCG CAP PO SCH (08:24)
[2019-05-22] MEDS: Folic Acid 1 MG TAB PO SCH (08:24)
[2019-05-22] MEDS: Cyanocobalamin (Vitamin B-12) 1,000 MCG TAB PO SCH (08:24)
[2019-05-22] MEDS ORDERED: Aspirin 81 mg Enteric Coated Tablet PO SCH (09:00)
[2019-05-22] MEDS ORDERED: Minoxidil 2.5 MG TAB PO SCH (09:00)
[2019-05-22] MEDS ORDERED: NIFEdipine XL 30 MG TAB PO SCH (09:30)
[2019-05-22] MEDS ORDERED: Potassium Chloride 20 MEQ TAB PO SCH (10:00)
[2019-05-22] MEDS ORDERED: Nicotine 14 MG PATCH TD PRN (10:00)
[2019-05-22] MEDS ORDERED: cloNIDine 0.1 MG TAB PO SCH ×2 (10:03→10:30)
[2019-05-22] MEDS ORDERED: cloNIDine 0.2 MG TAB PO SCH (10:15)
[2019-05-22] MEDS: Sodium Chloride 0.9% 1,000 ML IV SCH (10:42)
--- NOTE | 2019-05-22 10:49 | PRG ---
DATE OF SERVICE: 05/22/2019 SERVICE: Renal Medicine. SUBJECTIVE: Mr. Chilel is a 38-year-old black male, who was followed up for his acute kidney injury/chronic renal failure. The exact etiology of his renal dysfunction is unclear. Although, with the proteinuria and his hematuria, he may have FSGS. Please note, he also has labile hypertension and BP medications are being adjusted. Planned renal biopsy was done, however, this was placed on hold since the Radiology felt that he took aspirin and may need to hold the biopsy for another week. We have discontinued the aspirin. No complaints today. Again, I discussed the case with the patient. He has declined to initiate dialysis. No complaints of chest pain or shortness of breath. OBJECTIVE: VITAL SIGNS: Blood pressure is 194/102, heart rate 77, respiratory rate 18, temperature 98.7, and pulse ox 97%. GENERAL: Noted to be awake, alert, comfortable, not in distress. SKIN: Adequate turgor. HEENT: Pale conjunctivae. Anicteric sclerae. No neck mass. No carotid bruits. No JVD. CHEST: No deformities. LUNGS: Clear breath sounds. No wheezing. No crackles. HEART: Normal sinus rhythm. No murmur. No gallops. No rubs. ABDOMEN: Globular, soft, nontender. No masses. EXTREMITIES: No edema. No deformities. MEDICATIONS: Medications of May 22, 2019 were reviewed. LABORATORY DATA: Laboratories of May 22, 2019; sodium 135, potassium 3.2, chloride 106, carbon dioxide 17, BUN 62, creatinine 9.1, GFR 8 mL/minute, glucose 80, calcium 9.1, ferritin 301. White count 6.9, hemoglobin 6.6. Hepatitis B and C were negative. [place] and ANCA are pending. ASSESSMENT AND PLAN: 1. Acute kidney injury/chronic renal failure, still unimproved renal function in spite of hydration. GFR is 8 mL/minute. The patient declining hemodialysis. Currently holding renal biopsy until next week. 2. Anemia. We will transfuse 2 units of packed RBC. 3. Hypertension. We will continue to adjust BP medications. We will increase his clonidine to 0.2 mg p.o. b.i.d. 4. Overall agree with current management. 5. Case discussed with the patient's father. Job ID: [id number]
--- NOTE | 2019-05-22 14:18 | PRG ---
DATE OF SERVICE: 05/22/2019 SUBJECTIVE: Mr. Chilel is doing better. He says he feels better. OBJECTIVE: VITAL SIGNS: Blood pressure is all the way down to 140/70, pulse 70. LUNGS: Clear. CARDIAC: Normal S1, normal S2 per Chandni Howell's note. ASSESSMENT: 1. Hypertension, improved. 2. Renal failure. 3. Anemia with hemoglobin down to 6.6. PLAN: 1. He is receiving packed red blood cells. 2. Ferritin level is high at 301. 3. Creatinine 9. 4. Hopefully, can simplify the patient's medical regimen. Ideally, we would like to be able to treat him with two medicines, hopefully, Procardia XL 90 mg and carvedilol 25 mg twice a day would be adequate. The patient has a history of going home, not feeling well on medicines, and stopping all the medicines. 5. Hopefully, if we can try to treat him with two medicines, he would continue to take the medicines. Job ID: [id number]
[2019-05-22] MEDS: cloNIDine 0.2 MG TAB PO SCH (21:16)
--- NOTE | 2019-05-22 21:23 | PDOC.HOSPP ---
- Subjective Encounter Date: 05/22/19 Encounter Time: 09:30 Subjective: Patient seen and examined for LEXI. No CP or SOB. No new complaints. No overnight events - Objective Vital Signs & Weight: Vital Signs (12 hours) Temp Pulse Pulse Resp BP BP BP 05/22/19 21:16 180/101 H 05/22/19 15:12 98.4 F 72 18 135/78 05/22/19 12:25 98.5 F 66 18 132/68 05/22/19 12:08 98.7 F 65 18 131/66 05/22/19 10:34 69 141/73 H Pulse Ox 05/22/19 21:16 05/22/19 15:12 96 05/22/19 12:25 95 05/22/19 12:08 94 L 05/22/19 10:34 Weight Admit Weight 196 lb Weight 213 lb Most Recent Monitor Data Heart Rate from ECG 76 NIBP 156/89 NIBP BP-Mean 111 Respiration from ECG 17 SpO2 95 I&O: 05/21/19 05/22/19 05/23/19 06:59 06:59 06:59 Intake Total 4178 1780 1440 Output Total 1250 600 800 Balance 2928 1180 640 Result Diagrams: 05/22/19 04:44 05/22/19 04:44 EKG Reviewed by me: Yes (Tele SR) Hospitalist ROS - Review of Systems Cardiovascular: denies: chest pain, palpitations, orthopnea, paroxysmal noc. dyspnea, edema, light headedness, other Gastrointestinal: denies: nausea, vomitting, abdominal pain, diarrhea, constipation, melena, hematochezia, other - Medication Medications: Active Medications Generic Name Dose Route Start Last Admin Trade Name Freq PRN Reason Stop Dose Admin Hydrocodone Bitart/Acetaminophen 1 tab 05/19/19 15:19 05/21/19 05:19 [place] 10/325 PO 1 tab Q4H PRN Administration Moderate Pain (4-6) Calcitriol 0.25 mcg 05/22/19 09:00 05/22/19 08:24 Rocaltrol PO 0.25 mcg DAILY STEVEN Administration Carvedilol 25 mg 05/20/19 17:00 05/22/19 16:21 Coreg PO 25 mg BID-WM STEVEN Administration Cephalexin 250 mg 05/20/19 09:00 05/22/19 08:22 Keflex PO 250 mg DAILY STEVEN Administration Clonidine 0.1 mg 05/19/19 20:27 05/22/19 00:29 Catapres PO 0.1 mg Q4H PRN Administration SBP > 160, DBP > 100 Clonidine 0.2 mg 05/22/19 21:00 05/22/19 21:16 Catapres PO 0.2 mg BID STEVEN Administration Cyanocobalamin 1,000 mcg 05/22/19 09:00 05/22/19 08:24 Vitamin B-12 PO 1,000 mcg DAILY STEVEN Administration Folic Acid 1 mg 05/22/19 09:00 05/22/19 08:24 Folvite PO 1 mg DAILY STEVEN Administration Hydralazine HCl 10 mg 05/21/19 14:05 05/22/19 03:03 Apresoline SLOW IVP 10 mg Q4H PRN Administration SBP Greater Than 180 Sodium Chloride 1,000 mls @ 75 mls/hr 05/21/19 14:06 05/22/19 10:42 Normal Saline 0.9% IV 1,000 mls .[id number] STEVEN Administration Minoxidil 2.5 mg 05/22/19 09:00 05/22/19 08:23 Minoxidil PO 2.5 mg DAILY STEVEN Administration Morphine Sulfate 2 mg 05/19/19 15:51 05/19/19 15:58 Morphine SLOW IVP 2 mg Q4H PRN Administration BREAKTHRU PAIN Nitroglycerin 0.4 mg 05/19/19 18:52 05/19/19 19:47 Nitrostat SL 0.4 mg Q5MIN PRN Administration Chest Pain Sevelamer Carbonate 800 mg 05/21/19 12:00 05/22/19 16:21 Renvela PO 800 mg TID-WM STEVEN Administration Sodium Chloride 10 ml 05/19/19 21:00 05/22/19 21:08 Flush - Normal Saline IVF Not Given Q12HR STEVEN - Exam General Appearance: NAD Neck: supple, no JVD Heart: RRR, no rubs Respiratory: CTAB, no rales Gastrointestinal: soft, non-tender, non-distended, normal bowel sounds Extremities: no edema Hosp A/P (1) Hypertensive emergency Code(s): I16.1 - HYPERTENSIVE EMERGENCY Status: Acute (2) LEXI (acute kidney injury) Code(s): N17.9 - ACUTE KIDNEY FAILURE, UNSPECIFIED Status: Acute (3) CKD (chronic kidney disease) stage 3, GFR 30-59 ml/min Code(s): N18.3 - CHRONIC KIDNEY DISEASE, STAGE 3 (MODERATE) Status: Acute (4) Thrombocytopenia Code(s): D69.6 - THROMBOCYTOPENIA, UNSPECIFIED Status: Acute (5) Tobacco dependence Code(s): F17.200 - NICOTINE DEPENDENCE, UNSPECIFIED, UNCOMPLICATED Status: Acute (6) Anemia of renal disease Code(s): N18.9 - CHRONIC KIDNEY DISEASE, UNSPECIFIED; D63.1 - ANEMIA IN CHRONIC KIDNEY DISEASE Status: Chronic - Plan DVT proph w/SCDs Cont Minoxidil/Procardia XL Cont Coreg Cont IVF Receiving 1 unit PRBC AM labs Cont other meds as above
--- NOTE | 2019-05-23 01:03 | EKG ---
Test Reason : Blood Pressure : / mmHG Vent. Rate : 086 BPM Atrial Rate : 086 BPM P-R Int : 138 ms QRS Dur : 094 ms QT Int : 420 ms P-R-T Axes : 059 000 119 degrees QTc Int : 502 ms Normal sinus rhythm Possible Left atrial enlargement Left ventricular hypertrophy with repolarization abnormality Prolonged QT Abnormal ECG Confirmed by ILIANA ADAM ([id number]), social media editor CHINO ADHIKARI ([id number]) on 05/23/2019 1:02:10 AM Referred By: Confirmed By:ILIANA ADAM
[2019-05-23] MEDS: Sodium Chloride 0.9% 1,000 ML IV SCH ×2 (04:18→17:12)
[2019-05-23 05:05] LABS: #Eosinphils 0.2 thou/uL (0.0-0.7); #Lymphocytes 1.2 thou/uL (1.20-3.40); #Monocytes 0.7 thou/uL (0.11-0.59); #Neutrophils 5.7 thou/uL (1.40-6.50); %Basophils 0.3 % (0.0-1.0); %Eosinophils 2.9 % (0.0-10.0); %Lymphocytes 14.7 % (21.0-51.0); %Monocytes 9.4 % (0.0-10.0); %Neutrophils 72.7 % (42.0-75.0); Hemoglobin 7.9 g/dL (14.0-18.0); Mean Corpuscular Hemoglobin 30.1 pg (27.0-31.0); Mean Corpuscular Volume 91.1 fL (78.0-98.0); Mean Platelet Volume 9.6 fL (7.4-10.4); Platelet Count 194 thou/uL (130-400); RBC Distribution Width 16.9 % (11.5-14.5); Red Blood Cell (RBC) Count 2.62 mill/uL (4.70-6.10); White Blood Cell (WBC) Count 7.9 thou/uL (4.8-10.8)
[2019-05-23 05:31] LABS: Anion Gap 16 mmol/L (10-20); BUN (Urea Nitrogen) 62 mg/dL (8.9-20.6); Calc. Creatinine Clearance 15 mL/min (70-130); Carbon Dioxide 16 mmol/L (22-29); Chloride 107 mmol/L (98-107); Estimated GFR-MDRD 8; Glucose 88 mg/dL (70-105); Potassium 3.3 mmol/L (3.5-5.1); Sodium 136 mmol/L (136-145)
[2019-05-23] MEDS: NIFEdipine XL 60 MG TAB PO SCH (05:59)
[2019-05-23] MEDS: Cyanocobalamin (Vitamin B-12) 1,000 MCG TAB PO SCH (08:07)
[2019-05-23] MEDS: Sevelamer Carbonate 800 MG TAB PO SCH ×3 (08:07→17:11)
[2019-05-23] MEDS: Carvedilol 25 MG TAB PO SCH ×2 (08:07→17:11)
[2019-05-23] MEDS: Folic Acid 1 MG TAB PO SCH (08:07)
[2019-05-23] MEDS: cloNIDine 0.2 MG TAB PO SCH ×2 (08:07→19:38)
[2019-05-23] MEDS: Cephalexin 250 MG CAP PO SCH (08:07)
[2019-05-23] MEDS: Calcitriol 0.25 MCG CAP PO SCH (08:07)
[2019-05-23] MEDS ORDERED: Potassium Chloride 20 MEQ TAB PO SCH (08:15)
[2019-05-23] MEDS ORDERED: Epoetin (ESRD) 20,000 UNITS/ML SC SCH (10:15)
--- NOTE | 2019-05-23 10:35 | PRG ---
DATE OF SERVICE: 05/23/2019 SUBJECTIVE: Mr. Chilel is a 38-year-old black male, who was initially admitted for labile hypertension. He was also noted to have worsened his renal dysfunction. He has been advised dialysis. He is unable to decide. Again, I had a long discussion with his dialysis. He still is not ready. The etiology of his chronic renal failure/acute kidney injury is unclear. Although, FSGS is a possibility with him. We have also done several serologies. Hepatitis B and C are negative. In addition, SANJUANA and ANCA are pending. Renal biopsy is in hold. As per recommendation by Radiology, wants to do the renal biopsy a week after the last dose of the aspirin. No new complaints today. No chest pain or shortness of breath. OBJECTIVE: VITAL SIGNS: Blood pressure 174/90, heart rate 78, respiratory rate 18, temperature 98.6, and pulse ox 96%. GENERAL: The patient is awake, alert, and comfortable, not in overt distress. SKIN: Adequate turgor. HEENT: Pinkish conjunctivae. Anicteric sclerae. NECK: No neck mass. No carotid bruits. No JVD. CHEST: No deformities. LUNGS: Clear breath sounds. No wheezing. No crackles. HEART: Normal sinus rhythm. No murmur. No gallops. No rubs. ABDOMEN: Globular, soft, and nontender. No masses. EXTREMITIES: No edema. No deformities. MEDICATIONS: Medications of May 23, 2019, were reviewed. LABORATORY DATA: Laboratories of May 23, 2019; sodium 136, potassium 3.3, chloride 107, carbon dioxide 16, BUN 62, creatinine 9, GFR 8 mL/minute, and calcium 9.0. Hemoglobin 7.9. ASSESSMENT AND PLAN: 1. Chronic renal failure - unclear etiology; although, FSGS is a possibility. Awaiting SANJUANA and ANCA with this patient. Continue current supportive care. Again, I re-advised the patient to consider dialysis. He is declining. 2. Anemia. We will start Epogen. The blood pressure is better controlled. 3. Labile hypertension, better control. Continue current blood pressure medications. 4. Secondary hyperparathyroidism, on calcitriol and phosphate binders. Recheck basic metabolic and CBC in a.m. Job ID: [id number]
[2019-05-23] MEDS ORDERED: EPOETIN ALFA-EPBX (ESRD) 4,000 UNIT/ML VIAL SC SCH (12:00)
--- NOTE | 2019-05-23 16:48 | PDOC.HOSPP ---
- Subjective Encounter Date: 05/23/19 Encounter Time: 12:30 Subjective: Patient seen and examined for HTN crisis/LEXI. Feels better. No new complaints. No overnight events - Objective Vital Signs & Weight: Vital Signs (12 hours) Temp Pulse Resp BP BP BP Pulse Ox 05/23/19 16:05 99 F 72 16 159/91 H 98 05/23/19 11:10 98.4 F 71 18 132/65 95 05/23/19 08:02 98.6 F 78 18 174/90 H 96 05/23/19 05:59 78 Weight Admit Weight 196 lb Weight 212 lb 6.4 oz Most Recent Monitor Data Heart Rate from ECG 76 NIBP 156/89 NIBP BP-Mean 111 Respiration from ECG 17 SpO2 95 I&O: 05/22/19 05/23/19 05/24/19 06:59 06:59 06:59 Intake Total 1780 2980 Output Total 600 1500 Balance 1180 1480 Result Diagrams: 05/23/19 04:29 05/23/19 04:28 EKG Reviewed by me: Yes (Tele SR) Hospitalist ROS - Review of Systems Respiratory: denies: cough, dry, shortness of breath, hemoptysis, SOB with excertion, pleuritic pain, sputum, wheezing, other Cardiovascular: denies: chest pain, palpitations, orthopnea, paroxysmal noc. dyspnea, edema, light headedness, other Gastrointestinal: denies: nausea, vomitting, abdominal pain, diarrhea, constipation, melena, hematochezia, other - Medication Medications: Active Medications Generic Name Dose Route Start Last Admin Trade Name Freq PRN Reason Stop Dose Admin Hydrocodone Bitart/Acetaminophen 1 tab 05/19/19 15:19 05/21/19 05:19 Avinger 10/325 PO 1 tab Q4H PRN Administration Moderate Pain (4-6) Calcitriol 0.25 mcg 05/22/19 09:00 05/23/19 08:07 Rocaltrol PO 0.25 mcg DAILY STEVEN Administration Carvedilol 25 mg 05/20/19 17:00 05/23/19 08:07 Coreg PO 25 mg BID-WM STEVEN Administration Cephalexin 250 mg 05/20/19 09:00 05/23/19 08:07 Keflex PO 250 mg DAILY STEVEN Administration Clonidine 0.1 mg 05/19/19 20:27 05/22/19 00:29 Catapres PO 0.1 mg Q4H PRN Administration SBP > 160, DBP > 100 Cyanocobalamin 1,000 mcg 05/22/19 09:00 05/23/19 08:07 Vitamin B-12 PO 1,000 mcg DAILY STEVEN Administration Folic Acid 1 mg 05/22/19 09:00 05/23/19 08:07 Folvite PO 1 mg DAILY STEVEN Administration Sodium Chloride 1,000 mls @ 75 mls/hr 05/21/19 14:06 05/23/19 04:18 Normal Saline 0.9% IV 1,000 mls .[id number] STEVEN Administration Morphine Sulfate 2 mg 05/19/19 15:51 05/19/19 15:58 Morphine SLOW IVP 2 mg Q4H PRN Administration BREAKTHRU PAIN Nifedipine 90 mg 05/23/19 06:00 05/23/19 05:59 Procardia Xl PO 90 mg 0600 STEVEN Administration Nitroglycerin 0.4 mg 05/19/19 18:52 05/19/19 19:47 Nitrostat SL 0.4 mg Q5MIN PRN Administration Chest Pain Sevelamer Carbonate 800 mg 05/21/19 12:00 05/23/19 11:44 Renvela PO 800 mg TID-WM STEVEN Administration Sodium Chloride 10 ml 05/19/19 21:00 05/23/19 08:11 Flush - Normal Saline IVF Not Given Q12HR STEVEN - Exam General Appearance: NAD Neck: supple, no JVD Heart: RRR, no gallops Respiratory: CTAB, no wheezes, no rales Gastrointestinal: soft, non-tender, normal bowel sounds Extremities: no edema Hosp A/P (1) Hypertensive emergency Code(s): I16.1 - HYPERTENSIVE EMERGENCY Status: Acute (2) LEXI (acute kidney injury) Code(s): N17.9 - ACUTE KIDNEY FAILURE, UNSPECIFIED Status: Acute (3) CKD (chronic kidney disease) stage 3, GFR 30-59 ml/min Code(s): N18.3 - CHRONIC KIDNEY DISEASE, STAGE 3 (MODERATE) Status: Acute (4) Thrombocytopenia Code(s): D69.6 - THROMBOCYTOPENIA, UNSPECIFIED Status: Acute (5) Tobacco dependence Code(s): F17.200 - NICOTINE DEPENDENCE, UNSPECIFIED, UNCOMPLICATED Status: Acute (6) Anemia of renal disease Code(s): N18.9 - CHRONIC KIDNEY DISEASE, UNSPECIFIED; D63.1 - ANEMIA IN CHRONIC KIDNEY DISEASE Status: Chronic - Plan Cont Minoxidil/Procardia XL/Coreg/Clonidine Cont IVF per Nephrology s/p 1 unit PRBC BMP in AM Cont other meds as above Refusing dialysis Consult order detailer
[2019-05-23] MEDS ORDERED: Labetalol HCl 100 MG/20 ML VIAL SLOW IVP PRN (16:55)
[2019-05-23] MEDS: Ferrous Sulfate 325 MG TAB PO SCH (17:11)
[2019-05-24 05:42] LABS: #Eosinphils 0.2 thou/uL (0.0-0.7); #Monocytes 0.7 thou/uL (0.11-0.59); #Neutrophils 4.8 thou/uL (1.40-6.50); %Basophils 0.1 % (0.0-1.0); %Eosinophils 2.7 % (0.0-10.0); %Lymphocytes 15.5 % (21.0-51.0); %Monocytes 9.9 % (0.0-10.0); %Neutrophils 71.8 % (42.0-75.0); Hemoglobin 7.1 g/dL (14.0-18.0); Mean Corpuscular HGB CONC 33.2 g/dL (32.0-36.0); Mean Corpuscular Hemoglobin 30.1 pg (27.0-31.0); Mean Corpuscular Volume 90.7 fL (78.0-98.0); Platelet Count 206 thou/uL (130-400); RBC Distribution Width 16.6 % (11.5-14.5); Red Blood Cell (RBC) Count 2.36 mill/uL (4.70-6.10); White Blood Cell (WBC) Count 6.7 thou/uL (4.8-10.8)
[2019-05-24 05:57] LABS: Anion Gap 15 mmol/L (10-20); BUN (Urea Nitrogen) 68 mg/dL (8.9-20.6); Calc. Creatinine Clearance 15 mL/min (70-130); Calcium 8.9 mg/dL (7.8-10.44); Carbon Dioxide 16 mmol/L (22-29); Chloride 108 mmol/L (98-107); Estimated GFR-MDRD 8; Glucose 88 mg/dL (70-105); Potassium 3.7 mmol/L (3.5-5.1); Sodium 135 mmol/L (136-145)
[2019-05-24] MEDS: NIFEdipine XL 60 MG TAB PO SCH (06:35)
[2019-05-24] MEDS: Cyanocobalamin (Vitamin B-12) 1,000 MCG TAB PO SCH (09:03)
[2019-05-24] MEDS: Calcitriol 0.25 MCG CAP PO SCH (09:03)
[2019-05-24] MEDS: Ferrous Sulfate 325 MG TAB PO SCH (09:03)
[2019-05-24] MEDS: Cephalexin 250 MG CAP PO SCH (09:03)
[2019-05-24] MEDS: cloNIDine 0.2 MG TAB PO SCH (09:03)
[2019-05-24] MEDS: Folic Acid 1 MG TAB PO SCH (09:04)
[2019-05-24] MEDS: Carvedilol 25 MG TAB PO SCH (09:04)
[2019-05-24] MEDS: Sevelamer Carbonate 800 MG TAB PO SCH ×2 (09:05→11:09)
--- NOTE | 2019-05-24 09:13 | PRG ---
DATE OF SERVICE: 05/24/2019 SUBJECTIVE: Mr. Chilel is a 38-year-old black male with a chronic renal failure, labile hypertension, and being followed by the Renal Service for his chronic renal failure. Initial serologies have been negative. We are still awaiting results of these SANJUANA and ANCA. I think this patient may have a possible FSGS. Unable to do the renal biopsy due to the recent intake of aspirin. The patient is wanting to go home. He is not compliant with his BP medications. OBJECTIVE: VITAL SIGNS: Blood pressure 171/92, heart rate 71, respiratory rate 17, temperature 98.1, and pulse ox 96%. GENERAL: The patient is awake, alert, comfortable, not in distress. SKIN: Adequate turgor. HEENT: He does have a pinkish conjunctivae. Anicteric sclerae. NECK: No neck mass. No carotid bruits. No JVD. CHEST: No deformities. LUNGS: Clear breath sounds. HEART: Normal sinus rhythm. No murmurs, gallops, or rubs. ABDOMEN: Globular, soft, and nontender. No masses. EXTREMITIES: No edema. No deformities. MEDICATIONS: Medications of May 24, 2019, was reviewed. LABORATORY DATA: Laboratories of May 24, 2019; sodium 135, potassium 3.7, chloride 108, carbon dioxide 16, BUN 68, creatinine 9.25, glucose 88, and calcium 8.9. White count 6.7 and hemoglobin 7.1. ASSESSMENT AND PLAN: 1. 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 The patient declining hemodialysis. Continue to encourage the patient to consider dialysis. 2. Anemia, on Epogen and iron supplementation. Consider transfusing 1 unit of packed RBC with this patient once the hemoglobin comes less than 7. 3. Labile hypertension. Continue current blood pressure medications. The patient counseled on compliance with his blood pressure medications. We will recheck basic metabolic and CBC in a.m. Job ID: [id number]
[2019-05-24 14:20] VITALS: BP 159/91; TEMP 97.6
--- NOTE | 2019-05-24 18:26 | DIS ---
DATE OF ADMISSION: 05/19/2019 DATE OF DISCHARGE: 05/24/2019 AGAINST MEDICAL ADVICE/DISCHARGE SUMMARY. The patient signed against medical advice. BRIEF HOSPITAL COURSE: The patient is a 38-year-old male with uncontrolled hypertension, medication noncompliance and CKD, presented to the hospital with elevated blood pressure. His blood pressure in the emergency room was 247/138. He was started on Cardene drip and was monitored in the intensive care unit. He was later started on oral hypoglycemics. He was seen by multiple consultants including Cardiology, Dr. Stacy; Nephrology, Dr. Zapata as well as Critical Care, Dr. Albrecht. Dialysis was offered; however, the patient declined. Echocardiogram showed left ventricular ejection fraction of 55% to 60% with moderate to severe concentric left ventricular hypertrophy with grade 2 diastolic dysfunction, moderate mitral regurgitation, and mild tricuspid regurgitation. The patient signed against medical advice. He understands the consequences, not limited to life threatening complications including . A prescription for carvedilol 12.5 mg twice a day, clonidine 0.1 mg daily and Procardia XL 90 mg daily was provided. He is currently on these antihypertensives. FINAL DIAGNOSES: 1. Hypertensive emergency. 2. Acute kidney injury on chronic kidney disease stage 3, refusing hemodialysis. 3. Tobacco dependence, the patient was counseled. 4. Anemia of renal disease. 5. Thrombocytopenia. 6. Medication noncompliance. 7. Hypokalemia, replaced. 8. Hyponatremia. 9. Secondary hyperparathyroidism. 10. Type 2 myocardial infarction. 11. Chronic diastolic heart failure. 12. Moderate mitral regurgitation. 13. Hypertensive heart disease. 14. Chronic diastolic dysfunction. Please note the patient signed against medical advice. Job ID: [id number]
[2019-05-25 15:10] LABS: Cytoplasmic (C-ANCA) <1:20 titer (Neg:<1:20); Myeloperoxidase AutoAbs <9.0 U/mL (0.0-9.0); Perinuclear (P-ANCA) <1:20 titer (Neg:<1:20); Proteinase-3 AutoAbs Less than 3.5 U/mL (0.0-3.5)
--- NOTE | 2019-05-26 02:13 | PQF ---
ASUNCION FOURNIER MALIK MD [id number] CLINICAL DOCUMENTATION CLARIFICATION FORM: POST DISCHARGE Addendum to original discharge summary date: ____ Late entry note date: __ DATE: 05/26/19 ATTN: Robby Camarillo Please exercise your independent, professional judgment in responding to the clarification form. Clinical indicators are provided on the bottom of this form for your review Can you please further specify the CKD stage in the below indicators? Please check appropriate box(s): [ ] Acute Renal Failure (ARF) / Acute Kidney Injury (LEXI) [ x ] Acute on Chronic Renal Failure please specify Stage of CKD __3_ (see below) [ ] CKD without ARF/LEXI please specify Stage of CKD [ ] ESRD [ ] Other diagnosis please specify [ ] Unable to determine In addition, please specify: Present on Admission (POA): [ x ] Yes [ ] No [ ] Unable to determine National Kidney Foundation Guidelines for CKD Staging Stage I Kidney damage with normal or increased GFRGFR > 90 Stage IIKidney damage with mildly decreased GFRGFR 60-89 Stage III Kidney damage with moderately decreased GFRGFR 30-59 Stage IVKidney damage with severely decreased GFRGFR 16-29 Stage VKidney failureGFR<15 ESRDEnd Stage Renal DiseaseOn dialysis Acute Renal Failure/Acute Kidney Failure defined as: Increases in SCr by (>) 0.3 mg/dl within 48 hours OR- Increases in SCr by (>) 1.5 times baseline, known or presumed to have occurred within the prior 7 days OR- Urine volume < 0.5 ml/kg/hour for 6 hours (KDIGO supplement 2012 for RIFLE/DARELL criteria) For continuity of documentation, please document condition throughout progress notes and discharge summary. Thank You. CLINICAL INDICATORS - SIGNS / SYMPTOMS / LABS Laboratory Chemistry 05/19- "Creatinine 10.19" Laboratory Chemistry 05/19- "GFR 7" Laboratory Chemistry 05/19- "BUN 66" H&P p3 05/19-renal- at this time, patient declines renal replacement therapy. H&P p1 05/19- blood pjunspuh902/130 H&P 05/19- "refusal of hemodialysis" DS pg1 05/24- "Acute kidney injury on chronic kidney disease stage 3, refusing dialysis" RISK FACTORS Acute on Chronic Renal Failure-H&P p3 05/19 Malignant/ accelerated hypertension- H&P p3 05/19 Hypertensive heart disease- DS 05/24 Dr. Jason Smokes cigarette-H&P 05/19 medication noncompliance-DS pg1 05/24 TREATMENTS: IV Fluids- Serial Laboratory- 05/19 Replete potassium Nephro Consult- Dr. Albrecht 05/19 (This form is maintained as a part of the permanent medical record) 2014 [employer] All Rights Reserved [email or web address] [not provided] MTDD
[2019-05-26 16:23] LABS: ANA Symphony (Qualitative) Negative (Negative); ANA Symphony (Quantitative) 0.2 Ratio (< 0.7 Negative); dsDNA IgG Antibody Less than 0.5 IU/mL (<10 Negative)
== END 2019-05-24 13:05 | disposition left against medical advice (07) | DRG 682 ==
LOC: ERS 09:38 → CCU 14:42 → 2NO 05-20 17:29
PROVIDERS: ADMIT Internal Medicine; ATTEND Internal Medicine
DX: N17.9 Acute kidney failure, unspecified (principal); I21.A1 Myocardial infarction type 2; I16.1 Hypertensive emergency; D59.4 Other nonautoimmune hemolytic anemias; E87.1 Hypo-osmolality and hyponatremia; I12.9 Hypertensive chronic kidney disease with stage 1 through stage 4 chronic kidney disease, or unspecified chronic kidney disease; N25.81 Secondary hyperparathyroidism of renal origin; F17.210 Nicotine dependence, cigarettes, uncomplicated; D63.1 Anemia in chronic kidney disease; E87.6 Hypokalemia; I34.0 Nonrheumatic mitral (valve) insufficiency; D69.6 Thrombocytopenia, unspecified; N18.3 Chronic kidney disease, stage 3 (moderate); K08.89 Other specified disorders of teeth and supporting structures; Z53.29 Procedure and treatment not carried out because of patient's decision for other reasons; Z91.14 Patient's other noncompliance with medication regimen; Z79.899 Other long term (current) drug therapy
CPT/HCPCS: 36415; 36430; 71045; 80048; 80053; 80306; 81003; 81015; 82553; 82728; 83520; 83735; 83880; 83970; 84100; 84484; 85025; 85060; 85576; 86038; 86225; 86256; 86803; 86850; 86900; 86901; 87040; 87340; 93005; 93010; 93306; 96360; 96361; 96365; 96366; 96375; J0360; J2270; J7050; P9016; Q5105

== ENCOUNTER 2019-05-31 19:48 | Inpatient (IN) | payer OTHER, SELFPAY ==
[2019-05-31 21:10] LABS: #Eosinphils 0.3 thou/uL (0.0-0.7); #Lymphocytes 1.3 thou/uL (1.20-3.40); #Monocytes 0.8 thou/uL (0.11-0.59); #Neutrophils 4.8 thou/uL (1.40-6.50); %Basophils 0.6 % (0.0-1.0); %Eosinophils 3.6 % (0.0-10.0); %Monocytes 10.5 % (0.0-10.0); %Neutrophils 67.3 % (42.0-75.0); Hemoglobin 8.3 g/dL (14.0-18.0); Mean Corpuscular HGB CONC 32.9 g/dL (32.0-36.0); Mean Corpuscular Hemoglobin 29.8 pg (27.0-31.0); Mean Corpuscular Volume 90.8 fL (78.0-98.0); Mean Platelet Volume 8.4 fL (7.4-10.4); Platelet Count 292 thou/uL (130-400); Red Blood Cell (RBC) Count 2.78 mill/uL (4.70-6.10); White Blood Cell (WBC) Count 7.2 thou/uL (4.8-10.8)
[2019-05-31 21:25] LABS: ALT (SGPT) 16 U/L (8-55); AST (SGOT) 11 U/L (5-34); Albumin 3.7 g/dL (3.5-5.0); Alkaline Phosphatase 61 U/L (40-150); Anion Gap 15 mmol/L (10-20); BUN (Urea Nitrogen) 75 mg/dL (8.9-20.6); Bilirubin, Total 0.2 mg/dL (0.2-1.2); Calc. Creatinine Clearance 0 mL/min (70-130); Calcium 8.7 mg/dL (7.8-10.44); Carbon Dioxide 17 mmol/L (22-29); Chloride 111 mmol/L (98-107); Estimated GFR-MDRD 8; Globulin 2.9 g/dL (2.4-3.5); Glucose 110 mg/dL (70-105); Potassium 4.1 mmol/L (3.5-5.1); Protein, Total 6.6 g/dL (6.0-8.3); Sodium 139 mmol/L (136-145)
[2019-05-31 22:46] LABS: CKMB 0.8 ng/mL (0-6.6)
--- NOTE | 2019-05-31 22:47 | RAD ---
EXAM: Single view of the chest HISTORY: Bilateral lower extremity swelling and dyspnea COMPARISON: 05/19/2019 FINDINGS: Single view of the chest shows an enlarged but stable cardiomediastinal silhouette. There i s no evidence of consolidation, mass, or pleural effusion. The bones are unremarkable. IMPRESSION: Cardiomegaly without evidence of acute cardiopulmonary disease
[2019-06-01] MEDS ORDERED: Acetaminophen 325 MG TAB PO PRN (00:07)
--- NOTE | 2019-06-01 00:18 | PDOC.EVN ---
Event Note - Event Note Event Note: [id number] H&P
[2019-06-01] MEDS ORDERED: hydrALAZINE 20 MG/ML VIAL ONE (01:09)
[2019-06-01 03:48] LABS: Anion Gap 18 mmol/L (10-20); BUN (Urea Nitrogen) 70 mg/dL (8.9-20.6); Calc. Creatinine Clearance 0 mL/min (70-130); Calcium 8.5 mg/dL (7.8-10.44); Carbon Dioxide 16 mmol/L (22-29); Chloride 111 mmol/L (98-107); Estimated GFR-MDRD 9; Glucose 88 mg/dL (70-105); Potassium 3.4 mmol/L (3.5-5.1); Sodium 142 mmol/L (136-145)
[2019-06-01] MEDS ORDERED: CEFAZOLIN 2 GM in Premix Bag 1 BAG IVPB SCH (07:00)
--- NOTE | 2019-06-01 07:38 | HP ---
CHIEF COMPLAINT: Leg swelling and abdominal distention. HISTORY OF PRESENT ILLNESS: Mr. Chilel is a 38-year-old male with past medical history of hypertension, chronic kidney disease/end-stage renal disease, presenting to the emergency room with neck swelling and abdominal swelling. The patient has been seen by his tele tech, Dr. Zpaata, who recommended the patient to be admitted to the hospital to start hemodialysis. The patient denies chest pain or abdominal pain, but he gets short of breath with exertion. No fever, no chills. Workup in the emergency room, the patient had a creatinine of 8.9 and BUN of 75, potassium is 4.1. WBC count is 7.2 and hemoglobin is 8.3. The patient has been admitted to hospital for further management. PAST MEDICAL HISTORY: 1. Hypertension. 2. Chronic kidney disease. PAST SURGICAL HISTORY: Right ankle surgery. FAMILY HISTORY: Reviewed and noncontributory. HOME MEDICATIONS: Please see home medication reconciliation form for updated medications. ALLERGIES: NO KNOWN ALLERGIES. SOCIAL HISTORY: He abuses marijuana and uses tobacco cigarettes. Denies alcohol drinking. REVIEW OF SYSTEMS: Review of 14 systems negative except what is mentioned history of present illness. PHYSICAL EXAMINATION: VITAL SIGNS: Blood pressure is 190/100, pulse is 61, respiratory rate is 19, temperature , pulse oximetry is 97% on room air. GENERAL: The patient is awake, alert, in mild distress. HEAD AND NECK: Normocephalic, atraumatic. NECK: Supple. No JVD. CHEST: Fair. Bilateral air entry. HEART: S1, S2. Regular. ABDOMEN: Distended and soft. Bowel sounds present. NEUROLOGIC: Awake, alert, oriented x3. PSYCH: Normal mood. EXTREMITIES: 3+ pedal edema. LABORATORY DATA: As mentioned above in history of present illness. ASSESSMENT: 1. Acute over chronic renal failure/end-stage renal disease. 2. Fluid overload. 3. Hypertensive urgency. 4. Anemia of chronic disease. PLAN: 1. Admit. 2. Automation Controls Expert consult for evaluation and further management. 3. Arrangements to place hemodialysis catheter. Consult was placed by the ED. 4. Monitor and control blood pressure. 5. Reconcile home medications. 6. DVT prophylaxis, early ambulation. 7. Expected length of stay at least one midnight if the patient is stable and cleared by Nephrology. Job ID: [id number]
--- NOTE | 2019-06-01 09:06 | ULT ---
BILATERAL UPPER EXTREMITY VEIN MAPPING: Date: 06/01/19 HISTORY: End-stage renal disease; evaluate for dialysis access. FINDINGS: RIGHT UPPER EXTREMITY CEPHALIC VEIN Proximal Arm: 2.4 mm Mid Arm: 2.0 mm Distal Arm: 2.5 mm Antecubital Fossa: 2.3 mm Proximal Forearm: 1.5 mm Mid Forearm: 1.4 mm Distal Forearm: 2.4 mm BASILIC VEIN Proximal Arm: 3.6 mm Mid Arm: 3.3 mm Distal Arm: 2.8 mm Antecubital Fossa: 2.7 mm Proximal Forearm: 1.7 mm Mid Forearm: 0.8 mm Distal Forearm: 1.2 mm LEFT UPPER EXTREMITY CEPHALIC VEIN Proximal Arm: 3.3 mm Mid Arm: 2.9 mm Distal Arm: 1.9 mm Antecubital Fossa: 1.8 mm Proximal Forearm: 2.5 mm Mid Forearm: 1.7 mm Distal Forearm: 2.2 mm BASILIC VEIN Proximal Arm: 2.7 mm Mid Arm: 3.1 mm Distal Arm: 2.8 mm Antecubital Fossa: Not visualized Proximal Forearm: 0.5 mm Mid Forearm: 0.6 mm Distal Forearm: 0.8 mm RIGHT BRACHIAL ARTERY: 4.7 mm RIGHT RADIAL ARTERY: 2.8 mm RIGHT ULNAR ARTERY: 1.4 mm LEFT BRACHIAL ARTERY: 5.2 mm LEFT RADIAL ARTERY: 3.2 mm LEFT ULNAR ARTERY: 2.3 mm IMPRESSION: Vein mapping as described above. POS: TPC
[2019-06-01] MEDS: cloNIDine 0.2 MG TAB PO SCH ×2 (09:26→20:15)
--- NOTE | 2019-06-01 09:28 | HP ---
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 The patient's father works with Dr. Gilliland in the dialysis center at [place], this since closed down. The patient did speak to his father about recommendations for dialysis. Dr. Zapata is his steel buffer. The patient has been resistant to dialysis today, but started noted swelling, edema and presents to the emergency room to initiate dialysis. He has a right AC IV in which has been removed. ALLERGIES: NONE. SOCIAL HISTORY: Tobacco none. He smokes marijuana daily. Alcohol, rarely. MEDICATIONS: Norvasc 10 mg a day. PAST SURGICAL HISTORY: ORIF ankle. PAST MEDICAL HISTORY: Hypertension, chronic kidney disease. REVIEW OF SYSTEMS: Ten-point noncontributory. The patient is single, lives alone. PHYSICAL EXAMINATION: The patient has edema upper and lower extremities. LUNGS: Clear to auscultation. No rhonchi, rales, or wheezing. CARDIAC: Regular rate and rhythm without murmur or gallop. ABDOMEN: Soft and nontender. No obvious hernias. EXTREMITIES: Palpable radial pulses. Right antecubital IV removed. Nurses seeking dorsum hand IV. LABORATORY DATA: White count 7, hemoglobin 8.3. Sodium 142, potassium 3.4, BUN 70, creatinine 8.49, GFR 9. ASSESSMENT AND PLAN: End-stage renal disease, in need of dialysis access. We will remove his AC IV. Avoid AC IVs in blood draws. PLAN: Hemodialysis catheter, central line and right or left arm fistula, have explained him the procedure, risks and benefits, and he consents. Ultrasound vein mapping has been obtained. Results pending. We will plan IV dialysis access later today. Job ID: [id number]
[2019-06-01] MEDS ORDERED: Midazolam HCl 2 mg/2 ml Vial ONE ×2 (12:05→12:14)
[2019-06-01] MEDS ORDERED: Propofol 500 MG/50 ML VIAL ONE ×2 (12:05→14:31)
[2019-06-01] MEDS ORDERED: Fentanyl 100 MCG/2 ML VIAL ONE ×2 (12:05→12:14)
[2019-06-01] MEDS ORDERED: Bupivacaine HCl 0.5%/Epinephrine 1:200,000/PF 30 ml Vial ONE ×2 (12:08→16:14)
[2019-06-01] MEDS ORDERED: Protamine Sulfate 50 MG/5 ML VIAL ONE (12:08)
[2019-06-01] MEDS ORDERED: Heparin 5,000 UNITS/ML VIAL ONE (12:08)
[2019-06-01] MEDS ORDERED: Lidocaine 2% PF 5 ML VIAL ONE (12:08)
[2019-06-01] MEDS ORDERED: Heparin 10,000 UNITS/1 ML VIAL ONE ×2 (12:08→15:00)
--- NOTE | 2019-06-01 12:08 | CON ---
DATE OF CONSULTATION: HISTORY OF PRESENT ILLNESS: Mr. 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 He was recently admitted and was advised hemodialysis. He declined that. However, after talking with his father, who is a retired tube test technician, he has now agreed to proceed with dialysis. REVIEW OF SYSTEMS: Positive for generalized edema. Positive for leg swelling. No nausea. No vomiting. No diarrhea. No headache. No syncopal episode. No productive cough. No fever or chills. No headache. Appetite and energy level are decreased. No nausea. No tremors. No hematochezia. No melena. No hematemesis. HOME MEDICATIONS: Include amlodipine 10 mg tablet once a day. CURRENT HOSPITAL MEDICATIONS: Include; 1. Hydralazine 10 mg IV q.4. 2. Cefazolin 2 g x1 dose. 3. Acetaminophen 650 mg q.4 p.r.n. PAST MEDICAL HISTORY: 1. 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 2. Longstanding hypertension. 3. History of anemia with schistocytes. PAST SURGICAL HISTORY: Status post right ankle surgery. SOCIAL HISTORY: The patient currently lives in [place]. He is single. 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 Smoked one pack a day for the last 17 years. Occasional alcohol. Smokes marijuana occasionally. Education, high school. Status post blood transfusion. No IV drug abuse. FAMILY HISTORY: No family history of ESRD. ALLERGIES: NONE. TRAUMA: Status post right ankle fracture. IMMUNIZATION: Up-to-date. HOSPITALIZATIONS: Please see past medical history. PHYSICAL EXAMINATION: VITAL SIGNS: Blood pressure is noted at 210/110 and heart rate 70. GENERAL: Awake, alert, and comfortable, not in overt distress. SKIN: Adequate turgor. HEENT: He has a slightly pale conjunctivae. Anicteric sclerae. NECK: No neck mass. No carotid bruits. No JVD. CHEST: No deformities. LUNGS: Clear breath sounds. HEART: Normal sinus rhythm. No murmur. No gallops. No rubs. ABDOMEN: Globular, soft, and nontender. No masses. EXTREMITIES: Positive for edema. NEUROLOGIC: Awake and oriented to 3 spheres. Moving all extremities. No tremors. No asterixis. LABORATORY DATA: Laboratories of June 01, 2019; sodium 142, potassium 3.4, chloride 111, carbon dioxide 16, BUN 70, and creatinine 8.49. BNP 1279. May 31, 2019, shows a white count 7.2 and hemoglobin 8.3. ASSESSMENT AND PLAN: 1. Hypertension. Start BP medications. The patient has been noncompliant with his BP medications. I will restart the clonidine at 0.2 mg p.o. b.i.d. He is on a p.r.n. hydralazine. Continue amlodipine for the moment. 2. Anemia. Once the blood pressure is better controlled, we will restart Epogen. 3. 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 Possibility of focal segmental glomerulosclerosis remains with this patient. We will proceed with renal biopsy with this patient once blood pressure is better controlled. I had a long discussion with the patient and the father about initiating dialysis. They have both agreed to proceed with dialysis. Job ID: [id number]
[2019-06-01] MEDS ORDERED: Sodium Chloride 0.9% 10 ML ONE ×2 (12:09→22:32)
[2019-06-01] MEDS ORDERED: Promethazine HCl 25 MG/ML VIAL IM PRN (14:51)
[2019-06-01] MEDS ORDERED: Ondansetron HCl/PF 4 MG/2 ML Vial IVP PRN (14:51)
[2019-06-01] MEDS ORDERED: Promethazine HCl 25 MG/ML VIAL SLOW IVP PRN (14:51)
--- NOTE | 2019-06-01 15:13 | RAD ---
XR Chest 1 View Portable HISTORY: Central line placement. Dialysis catheter placement. End-stage renal disease COMPARISON: Previous day FINDINGS: There has been interval placement of a right internal jugular dialysis catheter tip in the projection of the cavoatrial junction. There is a left-sided central venous catheter with tip in the projection of the cavoatrial junction. No pneumothoraces are seen.
[2019-06-01] MEDS ORDERED: Heparin 10,000 UNITS/ 10 ML VIAL ONE (16:26)
[2019-06-01] MEDS ORDERED: Lidocaine 1% PF 5 ML VIAL ONE (16:26)
[2019-06-01] MEDS ORDERED: PROPOFOL 200 MG/20 ML VIAL ONE (16:26)
--- NOTE | 2019-06-01 18:04 | OP ---
DATE OF PROCEDURE: 06/01/2019 PREOPERATIVE DIAGNOSIS: End-stage renal disease, poor IV access. POSTOPERATIVE DIAGNOSIS: End-stage renal disease, poor IV access. PROCEDURES PERFORMED: Right IJ cuffed tunneled hemodialysis catheter, left IJ central line, right arm Carolyn fistula (left-handed), ultrasound fluoroscopy used. ANESTHESIA: Regional, TIVA, local 0.5% Marcaine with epinephrine 30 mL mixed with 2% Xylocaine 10 mL. DESCRIPTION OF PROCEDURE: The patient was taken to the operating room, where under intravenous sedation and a right arm regional anesthesia, neck and chest and right upper extremity were prepared with ChloraPrep and draped in routine fashion. Local anesthetic was infiltrated in the skin and subcutaneous tissue about the operative site for placement of central lines. Using ultrasound guidance, the right and left internal jugular veins were cannulated with trocar catheter, J-wire was threaded, trocar catheter entry site enlarged sharply. Stab incision was made over the right chest. Using Seldinger technique, a triple-lumen catheter was placed in the left IJ. J-wire was removed, catheter was secured with two interrupted sutures of 3-0 nylon. Sterile dressings were applied. Each port aspirated with blood and flushed with saline solution. Stab incision was made over the right chest. Using the tunneling device, pre-curved [employer] cuffed-tunneled hemodialysis catheter tunneled between the 2 incisions, placed the fabric cuff beneath the skin exit site. Catheter was secured with 2 interrupted suture of 3-0 nylon. Small and medium sized dilators were placed over the J-wire into the internal jugular vein removed. Dilator and Peel-Away sheath placed into the superior vena cava. Dilator and J-wire were removed. Catheter was placed with the Peel-Away sheath and Peel-Away sheath was removed. Fluoroscopically, catheter was noted to be in good position. Platysma was approximated with 4-0 Monocryl, skin with subdermal 4-0 Monocryl and Ginger Blue glue applied. Each port aspirated with blood and flushed with saline solution and heparinized saline solution 1000 units of heparin per mL indicating the volume of the port. Attention was then turned to the right arm, where an incision was made in the right wrist longitudinally between the cephalic vein and radial artery, both of which were dissected free, surrounded with silastic vessel loop. The patient was given 6000 units of heparin intravenously. Vein was ligated on the hand side with 3-0 silk suture, divided and interrogated with coronary dilators, passing coronary dilators from 2 mm to 3.5 mm coronary dilator throughout the venous outflow. It was flushed with heparinized saline solution. A bulldog clamp was applied. Radial artery was of good quality, dissected free, controlled proximally and distally using vascular clamps. Longitudinal arteriotomy made sharply, elongating sharply with the Ring scissors for 2.5 cm anastomosis and vein accordingly spatulated and end vein to right radial artery anastomosis created with continuous suture of 6-0 Prolene. Vascular clamps were released. Good flow in the fistula, evident by interrogation with Doppler. The cephalic vein outflow inspected, and small branches and larger branches occluded with clip job coach/job developer. Good Doppler signal noted. The patient was given 25 mg of protamine intravenously. Subcutaneous tissue was approximated with 3-0 Monocryl, skin with subdermal 4-0 Monocryl and Ginger Blue glue applied. The patient tolerated the procedure well. Job ID: [id number]
--- NOTE | 2019-06-01 18:10 | PDOC.HOSPP ---
- Subjective Encounter Date: 06/01/19 Encounter Time: 18:09 Subjective: pt up in bed is hungry wants to eat - Objective Vital Signs & Weight: Vital Signs (12 hours) Temp Pulse Resp BP BP Pulse Ox 06/01/19 10:30 98.7 F 68 20 191/108 H 100 06/01/19 09:26 198/117 H Result Diagrams: 05/31/19 21:00 06/01/19 03:13 Hospitalist ROS - Review of Systems Respiratory: denies: cough, dry, shortness of breath, hemoptysis, SOB with excertion, pleuritic pain, sputum, wheezing, other Cardiovascular: denies: chest pain, palpitations, orthopnea, paroxysmal noc. dyspnea, edema, light headedness, other Gastrointestinal: denies: nausea, vomiting, abdominal pain, diarrhea, constipation, melena, hematochezia, other - Medication Medications: Active Medications Generic Name Dose Route Start Last Admin Trade Name Freq PRN Reason Stop Dose Admin Clonidine 0.2 mg 06/01/19 09:00 06/01/19 09:26 Catapres PO 0.2 mg BID STEVEN Administration - Exam Neck: negative: supple, symmetric, no JVD, no thyromegaly, no lymphadenopathy, no carotid bruit, JVD Heart: negative: RRR, no murmur, no gallops, no rubs, normal peripheral pulses, irregular, diminshed peripheral pulses, murmur present, II/IV, III/IV Respiratory: negative: CTAB, no wheezes, no rales, no ronchi, normal chest expansion, no tachypnea, normal percussion, rales, rhonchi, tachypneic, wheezes Hosp A/P (1) ESRD (end stage renal disease) Code(s): N18.6 - END STAGE RENAL DISEASE Status: Acute (2) HTN (hypertension) Code(s): I10 - ESSENTIAL (PRIMARY) HYPERTENSION Status: Acute (3) Anemia of renal disease Code(s): N18.9 - CHRONIC KIDNEY DISEASE, UNSPECIFIED; D63.1 - ANEMIA IN CHRONIC KIDNEY DISEASE Status: Chronic - Plan pt underwent tunnel cath placement and got dialysis today. will continue home meds and prn meds for his blood pressure.
[2019-06-01] MEDS: hydrALAZINE 20 MG/ML VIAL SLOW IVP PRN ×2 (18:12→22:34)
[2019-06-01] MEDS ORDERED: Amlodipine 10 MG TAB PO SCH (18:15)
[2019-06-01] MEDS: traMADol HCl 50 MG TAB PO PRN (18:17)
[2019-06-01] MEDS: Acetaminophen/Codeine 30-300mg Tablet PO PRN ×2 (20:13→23:42)
[2019-06-01] MEDS: cloNIDine 0.1 MG TAB PO PRN (23:56)
[2019-06-02] MEDS ORDERED: Labetalol HCl 100 MG/20 ML VIAL SLOW IVP SCH (01:30)
[2019-06-02] MEDS ORDERED: Sodium Chloride 0.9% 10 ML ONE (01:57)
[2019-06-02] MEDS ORDERED: Sodium Chloride 0.9% 20 ML ONE (03:58)
[2019-06-02] MEDS: cloNIDine 0.2 MG TAB PO SCH ×2 (07:23→21:20)
[2019-06-02] MEDS: hydrALAZINE 25 MG TAB PO SCH ×3 (07:24→21:21)
[2019-06-02] MEDS: Acetaminophen/Codeine 30-300mg Tablet PO PRN ×4 (07:24→22:51)
[2019-06-02] MEDS: NIFEdipine XL 30 MG TAB PO SCH (08:52)
[2019-06-02] MEDS ORDERED: Amlodipine 10 MG TAB PO SCH (09:00)
[2019-06-02] MEDS ORDERED: Tuberculin PPD 0.1 ML VIAL I-DERMAL SCH (09:00)
[2019-06-02] MEDS ORDERED: Minoxidil 2.5 MG TAB PO SCH (09:00)
--- NOTE | 2019-06-02 09:42 | PRG ---
DATE OF SERVICE: 06/02/2019 SUBJECTIVE: Mr. Chilel is a 38-year-old black male, who was admitted for uremia. Hemodialysis has been initiated. He underwent a 1-hour hemodialysis yesterday, he tolerated this. No new complaints today. OBJECTIVE: VITAL SIGNS: Blood pressure is 184/93, heart rate 67, respiratory rate 18, and pulse ox 97% - room air. GENERAL: Noted to be awake, alert, and comfortable, not in distress. SKIN: Adequate turgor. HEENT: Slightly pale conjunctivae. Anicteric sclerae. NECK: No neck mass. No carotid bruits. No JVD. CHEST: No deformities. LUNGS: Clear breath sounds. No wheezing. No crackles. HEART: Normal sinus rhythm. No murmurs. No gallops. No rubs. ABDOMEN: Globular, soft, and nontender. No masses. EXTREMITIES: No edema. No deformities. MEDICATIONS: Medications of June 02, 2019, reviewed. LABORATORY DATA: Laboratories of May 31, 2019, white count 7.2 and hemoglobin 8.3. June 01, 2019; sodium 142, potassium 3.4, chloride 111, carbon dioxide 16, BUN 70, creatinine 8.49, glucose 88, and calcium 8.5. BNP is 1279. ASSESSMENT AND PLAN: 1. Chronic renal failure/end-stage renal disease, hemodialysis on a daily basis until reaches 4 hours, then we will place him on a 3 times a week. Today is scheduled for 2-hour hemodialysis. Fluid removal as tolerated. We will make arrangements for outpatient hemodialysis placement. 2. Anemia - attempt to better control blood pressure, then we will initiate Epogen. 3. Secondary renal osteodystrophy. Start calcitriol and phosphate binders with this patient. 4. Hypertension. Minoxidil 5 mg tablet once a day was added. 5. Recheck basic metabolic and CBC in a.m. I had a long discussion with the patient regarding peritoneal dialysis placement. Job ID: [id number]
[2019-06-02 10:03] LABS: #Eosinphils 0.1 thou/uL (0.0-0.7); #Lymphocytes 0.8 thou/uL (1.20-3.40); #Monocytes 0.7 thou/uL (0.11-0.59); #Neutrophils 6.5 thou/uL (1.40-6.50); %Basophils 0.1 % (0.0-1.0); %Eosinophils 1.3 % (0.0-10.0); %Monocytes 8.7 % (0.0-10.0); %Neutrophils 79.8 % (42.0-75.0); Hemoglobin 7.8 g/dL (14.0-18.0); Mean Corpuscular Volume 87.8 fL (78.0-98.0); Mean Platelet Volume 7.9 fL (7.4-10.4); Platelet Count 228 thou/uL (130-400); RBC Distribution Width 15.1 % (11.5-14.5); White Blood Cell (WBC) Count 8.1 thou/uL (4.8-10.8)
[2019-06-02 10:07] LABS: INR-International Normal Ratio 1.2; PTT 41.1 SEC (22.9-36.1); Prothrombin Time 15.3 SEC (12.0-14.7)
[2019-06-02 10:08] LABS: Anion Gap 14 mmol/L (10-20); BUN (Urea Nitrogen) 54 mg/dL (8.9-20.6); Calc. Creatinine Clearance 0 mL/min (70-130); Calcium 8.7 mg/dL (7.8-10.44); Carbon Dioxide 21 mmol/L (22-29); Chloride 107 mmol/L (98-107); Estimated GFR-MDRD 11; Glucose 86 mg/dL (70-105); Potassium 3.5 mmol/L (3.5-5.1); Sodium 138 mmol/L (136-145)
[2019-06-02 11:27] LABS: HBSAB Concentration 0.81 mIU/mL; HBSAg Index 0.15 S/CO (0-0.99); Hep B Core Total Ab Non-Reactive (NonReactive); Hep B Core Total Index 0.06 S/CO (0-0.79); Hep B Surf AB Non-Reactive (NonReactive); Hep B Surf Ag Non-Reactive S/CO (NonReactive); Hep C IgG Ab Non-Reactive (NonReactive); Hep C Index 0.03 S/CO (0-0.79)
[2019-06-02] MEDS ORDERED: Nitroglycerin 0.4 MG TAB (25 Tab Bottle) SL SCH ×2 (11:45→18:45)
--- NOTE | 2019-06-02 15:15 | PDOC.HOSPP ---
- Subjective Encounter Date: 06/02/19 Encounter Time: 12:45 Subjective: pt up in bed feels well. - Objective Vital Signs & Weight: Vital Signs (12 hours) Temp Pulse Resp BP BP Pulse Ox 06/02/19 13:55 181/96 H 06/02/19 12:18 98.7 F 06/02/19 12:05 181/86 H 06/02/19 11:20 60 20 202/99 H 100 06/02/19 09:57 184/90 H 06/02/19 08:52 67 184/93 H 06/02/19 07:24 67 06/02/19 07:22 206/106 H 06/02/19 07:21 98.6 F 67 18 210/90 H 97 I&O: 06/01/19 06/02/19 06/03/19 06:59 06:59 06:59 Intake Total 720 Output Total 700 Balance 20 Result Diagrams: 06/02/19 09:48 06/02/19 09:48 Hospitalist ROS - Review of Systems Respiratory: denies: cough, dry, shortness of breath, hemoptysis, SOB with excertion, pleuritic pain, sputum, wheezing, other Cardiovascular: denies: chest pain, palpitations, orthopnea, paroxysmal noc. dyspnea, edema, light headedness, other Gastrointestinal: denies: nausea, vomiting, abdominal pain, diarrhea, constipation, melena, hematochezia, other - Medication Medications: Active Medications Generic Name Dose Route Start Last Admin Trade Name Freq PRN Reason Stop Dose Admin Acetaminophen/Codeine Phosphate 1 tab 06/01/19 20:01 06/02/19 11:04 Tylenol #3 PO 1 tab Q4H PRN Administration Moderate Pain (4-6) Clonidine 0.2 mg 06/01/19 09:00 06/02/19 07:23 Catapres PO 0.2 mg BID STEVEN Administration Clonidine 0.1 mg 06/01/19 23:48 06/01/19 23:56 Catapres PO 0.1 mg Q4H PRN Administration SBP Greater Than 180 Hydralazine HCl 10 mg 06/01/19 00:09 06/01/19 22:34 Apresoline SLOW IVP 10 mg Q4H PRN Administration SBP>190 or DBP>95 Hydralazine HCl 25 mg 06/02/19 09:00 06/02/19 07:24 Apresoline PO 25 mg TID STEVEN Administration Minoxidil 5 mg 06/02/19 09:00 06/02/19 11:05 Minoxidil PO 5 mg DAILY STEVEN Administration Nifedipine 30 mg 06/02/19 09:00 06/02/19 08:52 Procardia Xl PO 30 mg DAILY STEVEN Administration Tramadol HCl 50 mg 06/01/19 14:55 06/01/19 18:17 Ultram PO 50 mg Q4H PRN Administration Pain 1-5 - Exam Neck: negative: supple, symmetric, no JVD, no thyromegaly, no lymphadenopathy, no carotid bruit, JVD Heart: negative: RRR, no murmur, no gallops, no rubs, normal peripheral pulses, irregular, diminshed peripheral pulses, murmur present, II/IV, III/IV Respiratory: negative: CTAB, no wheezes, no rales, no ronchi, normal chest expansion, no tachypnea, normal percussion, rales, rhonchi, tachypneic, wheezes Hosp A/P (1) ESRD (end stage renal disease) Code(s): N18.6 - END STAGE RENAL DISEASE Status: Acute (2) HTN (hypertension) Code(s): I10 - ESSENTIAL (PRIMARY) HYPERTENSION Status: Acute (3) Anemia of renal disease Code(s): N18.9 - CHRONIC KIDNEY DISEASE, UNSPECIFIED; D63.1 - ANEMIA IN CHRONIC KIDNEY DISEASE Status: Chronic - Plan pt underwent tunnel cath placement and got dialysis today. will continue home meds and prn meds for his blood pressure. 06/02 will start pt on procardia instead of norvasc since his bp is still elevated. pt inquiring about PD dialysis
[2019-06-02] MEDS: cloNIDine 0.1 MG TAB PO PRN (15:57)
[2019-06-02] MEDS: traMADol HCl 50 MG TAB PO PRN (17:35)
[2019-06-03] MEDS: cloNIDine 0.1 MG TAB PO PRN (04:24)
[2019-06-03 04:31] VITALS: BMI 30.2
[2019-06-03] MEDS: Acetaminophen/Codeine 30-300mg Tablet PO PRN ×3 (05:32→21:26)
[2019-06-03 05:41] LABS: Anion Gap 10 mmol/L (10-20); BUN (Urea Nitrogen) 38 mg/dL (8.9-20.6); Calc. Creatinine Clearance 26 mL/min (70-130); Calcium 8.9 mg/dL (7.8-10.44); Carbon Dioxide 27 mmol/L (22-29); Chloride 104 mmol/L (98-107); Estimated GFR-MDRD 14; Glucose 87 mg/dL (70-105); Potassium 3.8 mmol/L (3.5-5.1); Sodium 137 mmol/L (136-145)
[2019-06-03 06:13] LABS: Eosinophils 4 % (0-10); Hemoglobin 7.5 g/dL (14.0-18.0); Lymphocytes 23 % (21-51); MDiff Complete? YES; Mean Corpuscular HGB CONC 33.5 g/dL (32.0-36.0); Mean Corpuscular Hemoglobin 29.9 pg (27.0-31.0); Mean Corpuscular Volume 89.3 fL (78.0-98.0); Mean Platelet Volume 7.9 fL (7.4-10.4); Monocytes 7 % (0-10); Neutrophil 66 % (42-75); Platelet Count 203 thou/uL (130-400); RBC Distribution Width 14.8 % (11.5-14.5); Schistocytes SLIGHT = 2-5 cells (100X) (0-1/hpf); White Blood Cell (WBC) Count 4.7 thou/uL (4.8-10.8)
[2019-06-03] MEDS: NIFEdipine XL 30 MG TAB PO SCH (08:08)
[2019-06-03] MEDS: cloNIDine 0.2 MG TAB PO SCH ×2 (08:09→20:24)
[2019-06-03] MEDS: hydrALAZINE 25 MG TAB PO SCH ×3 (08:09→20:25)
--- NOTE | 2019-06-03 09:48 | PRG ---
DATE OF SERVICE: 06/03/2019 SUBJECTIVE: Mr. Chilel is a 38-year-old black male, who was admitted for uremia and labile hypertension. He was initiated on dialysis. I had a long discussion with this patient this morning, and he has agreed to do peritoneal dialysis. We will be re-consulting Dr. Aldana for a PD catheter placement. In addition, minoxidil was started yesterday at 5 mg tablet once a day. Blood pressure during the day was little better. No new complaints. No chest pain or shortness of breath. OBJECTIVE: VITAL SIGNS: Blood pressure 187/95, heart rate 58, respiratory rate 16, temperature 98.1, and pulse ox 94%. GENERAL: The patient is awake, alert, comfortable, not in distress. SKIN: Adequate turgor. HEENT: Slightly pale conjunctivae. Anicteric sclerae. NECK: No neck mass. No carotid bruits. No JVD. CHEST: No deformities. LUNGS: Clear breath sounds. No wheezing. No crackles. HEART: Normal sinus rhythm. No murmur. No gallops. No rubs. ABDOMEN: Globular, soft, and nontender. No masses. EXTREMITIES: No edema. No deformities. MEDICATIONS: Medications of June 03, 2019, reviewed. LABORATORY DATA: Laboratories of June 03, 2019; white count 4.7 and hemoglobin 7.5. Sodium 137, potassium 3.8, chloride 104, carbon dioxide 27, BUN 38, creatinine 5.58, and calcium 8.9. ASSESSMENT AND PLAN: 1. Chronic renal failure/end-stage renal disease, continuing daily hemodialysis. We will do a 3-hour hemodialysis today with fluid removal as tolerated. So far, he is tolerating said treatment. 2. Hypertension-we will increase minoxidil from 5 mg to 10 mg tablet once a day. Continue current antihypertensive regimen. 3. Anemia. We will initiate Epogen once the blood pressure is better controlled. I have scheduled this patient for a CT scan-guided renal biopsy. The etiology of renal dysfunction remains unclear, although FSGS is a possibility. We will recheck basic metabolic profile, CBC, intact PTH, and serum phosphorus in a.m. Job ID: [id number]
[2019-06-03] MEDS: Minoxidil 10 MG TAB PO SCH (10:09)
[2019-06-03] MEDS ORDERED: Heparin 10,000 UNITS/1 ML VIAL ONE (15:00)
--- NOTE | 2019-06-03 15:01 | PDOC.HOSPP ---
- Subjective Encounter Date: 06/03/19 Encounter Time: 11:15 Subjective: pt up in bed no complains - Objective Vital Signs & Weight: Vital Signs (12 hours) Temp Pulse Resp BP BP Pulse Ox 06/03/19 10:11 183/92 H 06/03/19 08:15 98.1 F 58 L 16 187/95 H 94 L 06/03/19 08:09 58 L 187/95 H 06/03/19 08:08 59 L 187/95 H 06/03/19 04:28 98.2 F 59 L 19 182/95 H 96 06/03/19 04:24 182/95 H Weight Weight 223 lb 4.8 oz I&O: 06/02/19 06/03/19 06/04/19 06:59 06:59 06:59 Intake Total 720 Output Total 700 1100 Balance 20 -1100 Result Diagrams: 06/03/19 05:15 06/03/19 05:15 Hospitalist ROS - Review of Systems Respiratory: denies: cough, dry, shortness of breath, hemoptysis, SOB with excertion, pleuritic pain, sputum, wheezing, other Cardiovascular: denies: chest pain, palpitations, orthopnea, paroxysmal noc. dyspnea, edema, light headedness, other Gastrointestinal: denies: nausea, vomiting, abdominal pain, diarrhea, constipation, melena, hematochezia, other - Medication Medications: Active Medications Generic Name Dose Route Start Last Admin Trade Name Freq PRN Reason Stop Dose Admin Acetaminophen/Codeine Phosphate 1 tab 06/01/19 20:01 06/03/19 05:32 Tylenol #3 PO 1 tab Q4H PRN Administration Moderate Pain (4-6) Clonidine 0.2 mg 06/01/19 09:00 06/03/19 08:09 Catapres PO 0.2 mg BID STEVEN Administration Clonidine 0.1 mg 06/01/19 23:48 06/03/19 04:24 Catapres PO 0.1 mg Q4H PRN Administration SBP Greater Than 180 Hydralazine HCl 10 mg 06/01/19 00:09 06/01/19 22:34 Apresoline SLOW IVP 10 mg Q4H PRN Administration SBP>190 or DBP>95 Hydralazine HCl 25 mg 06/02/19 09:00 06/03/19 08:09 Apresoline PO 25 mg TID STEVEN Administration Minoxidil 10 mg 06/03/19 08:53 06/03/19 10:09 Minoxidil PO 10 mg DAILY STEVEN Administration Nifedipine 30 mg 06/02/19 09:00 06/03/19 08:08 Procardia Xl PO 30 mg DAILY STEVEN Administration Tramadol HCl 50 mg 06/01/19 14:55 06/02/19 17:35 Ultram PO 50 mg Q4H PRN Administration Pain 1-5 - Exam Neck: negative: supple, symmetric, no JVD, no thyromegaly, no lymphadenopathy, no carotid bruit, JVD Heart: negative: RRR, no murmur, no gallops, no rubs, normal peripheral pulses, irregular, diminshed peripheral pulses, murmur present, II/IV, III/IV Respiratory: negative: CTAB, no wheezes, no rales, no ronchi, normal chest expansion, no tachypnea, normal percussion, rales, rhonchi, tachypneic, wheezes Hosp A/P (1) ESRD (end stage renal disease) Code(s): N18.6 - END STAGE RENAL DISEASE Status: Acute (2) HTN (hypertension) Code(s): I10 - ESSENTIAL (PRIMARY) HYPERTENSION Status: Acute (3) Anemia of renal disease Code(s): N18.9 - CHRONIC KIDNEY DISEASE, UNSPECIFIED; D63.1 - ANEMIA IN CHRONIC KIDNEY DISEASE Status: Chronic - Plan pt underwent tunnel cath placement and got dialysis today. will continue home meds and prn meds for his blood pressure. 06/02 will start pt on procardia instead of norvasc since his bp is still elevated. pt inquiring about PD dialysis 06/03 will add scheduled hydrazine. pt getting dialysis.
[2019-06-03] MEDS ORDERED: CEFAZOLIN 2 GM in Premix Bag 1 BAG IVPB SCH (18:15)
--- NOTE | 2019-06-03 19:06 | PRG ---
DATE OF SERVICE: 06/03/2019 Mr. Chilel is doing well today. His fistula has a good thrill and bruit. He has good hand function. Hemodialysis catheter and central line are working well. The patient was discussed with Dr. Zapata and plan is for a PD catheter. Unfortunately, I cannot do that Friday tomorrow. We will plan that Friday. He can be discharged home after that. We will plan laparoscopic peritoneal dialysis catheter. He understands risks and benefits and consents. Questions answered. Job ID: [id number]
[2019-06-04] MEDS: Acetaminophen 500 MG TAB PO PRN ×2 (05:10→20:00)
[2019-06-04 05:47] LABS: Anion Gap 13 mmol/L (10-20); BUN (Urea Nitrogen) 26 mg/dL (8.9-20.6); Calc. Creatinine Clearance 31 mL/min (70-130); Carbon Dioxide 26 mmol/L (22-29); Chloride 101 mmol/L (98-107); Estimated GFR-MDRD 18; Glucose 80 mg/dL (70-105); Phosphorus 3.8 mg/dL (2.3-4.7); Potassium 3.6 mmol/L (3.5-5.1); Sodium 136 mmol/L (136-145)
[2019-06-04 05:48] LABS: Band 1 % (5-11); Eosinophils 4 % (0-10); Hemoglobin 7.4 g/dL (14.0-18.0); Lymphocytes 17 % (21-51); MDiff Complete? YES; Mean Corpuscular HGB CONC 32.4 g/dL (32.0-36.0); Mean Corpuscular Volume 89.5 fL (78.0-98.0); Mean Platelet Volume 8.3 fL (7.4-10.4); Monocytes 13 % (0-10); Neutrophil 65 % (42-75); Platelet Count 201 thou/uL (130-400); Platelet Morphology Comment Appears Adequate; RBC Distribution Width 14.9 % (11.5-14.5); Red Blood Cell (RBC) Count 2.57 mill/uL (4.70-6.10); White Blood Cell (WBC) Count 5.2 thou/uL (4.8-10.8)
[2019-06-04] MEDS ORDERED: EPOETIN ALFA-EPBX (ESRD) 4,000 UNIT/ML VIAL SC SCH (09:30)
--- NOTE | 2019-06-04 09:59 | PRG ---
DATE OF SERVICE: 06/04/2019 SUBJECTIVE: Mr. Chilel is a 38-year-old black male, who was admitted for uremia and was initiated on dialysis. He is currently undergoing dialysis. Plan is to do a 4-hour hemodialysis. He has again changed his mind. He feels that he is not ready for peritoneal dialysis due to some issues with regard to his house. His mother was also feeling that he is not ready to initiate peritoneal dialysis. We will notify Dr. Aldana of the change of mind on the patient. He voices no new complaints. His blood pressure is actually improved. OBJECTIVE: VITAL SIGNS: Blood pressure 177/76, heart rate 71, respiratory rate 16, temperature 97. GENERAL: Noted to be awake, alert, comfortable, not in overt distress. SKIN: Adequate turgor. HEENT: Pale conjunctivae. Anicteric sclerae. NECK: No neck mass. No carotid bruits. No JVD. CHEST: No deformities. LUNGS: Clear breath sounds. HEART: Normal sinus rhythm. No murmur. No gallops. No rubs. ABDOMEN: Globular, soft, and nontender. No masses. EXTREMITIES: No edema. No deformities. MEDICATIONS: Medications of June 04, 2019, were reviewed. LABORATORY DATA: Laboratories of June 04, 2019: White count 5.2, hemoglobin 7.4. Sodium 136, potassium 3.6, chloride 101, carbon dioxide 26, BUN 26, creatinine 4.57, calcium 9, phosphorus 3.8. PTH 360. ASSESSMENT AND PLAN: 1. Labile hypertension, much improved with increased dose of minoxidil. Continue current antihypertensive regimen. 2. Chronic renal failure/end-stage renal disease. Continuing hemodialysis regimen. My plan is to how to schedule him on 3 times a week hemodialysis. Fluid removal only as tolerated. 3. Anemia. Start Epogen. 4. Agree with current management. Awaiting outpatient dialysis placement. Job ID: [id number]
[2019-06-04] MEDS: cloNIDine 0.2 MG TAB PO SCH ×2 (10:25→20:01)
[2019-06-04] MEDS: Minoxidil 10 MG TAB PO SCH (10:25)
[2019-06-04] MEDS: NIFEdipine XL 30 MG TAB PO SCH (10:25)
[2019-06-04] MEDS: hydrALAZINE 25 MG TAB PO SCH ×3 (10:26→20:00)
[2019-06-04] MEDS ORDERED: Heparin 1,000 UNITS/ML VIAL ONE (11:11)
--- NOTE | 2019-06-04 13:49 | PDOC.HOSPP ---
- Subjective Encounter Date: 06/04/19 Encounter Time: 11:00 Subjective: pt in dialysis no complains - Objective Vital Signs & Weight: Vital Signs (12 hours) Temp Pulse Resp BP BP Pulse Ox 06/04/19 10:25 65 190/100 H 06/04/19 08:23 98 F 71 16 177/76 H 97 06/04/19 08:00 97 06/04/19 04:37 100.3 F H 79 16 175/74 H 95 Weight Weight 223 lb 4.8 oz I&O: 06/03/19 06/04/19 06/05/19 06:59 06:59 06:59 Output Total 1100 Balance -1100 Result Diagrams: 06/04/19 05:15 06/04/19 05:15 Hospitalist ROS - Review of Systems Cardiovascular: denies: chest pain, palpitations, orthopnea, paroxysmal noc. dyspnea, edema, light headedness, other Gastrointestinal: denies: nausea, vomiting, abdominal pain, diarrhea, constipation, melena, hematochezia, other - Medication Medications: Active Medications Generic Name Dose Route Start Last Admin Trade Name Freq PRN Reason Stop Dose Admin Acetaminophen 1,000 mg 06/01/19 14:55 06/04/19 05:10 Tylenol PO 1,000 mg Q6H PRN Administration Moderate to Severe Pain (6-10) Acetaminophen/Codeine Phosphate 1 tab 06/01/19 20:01 06/03/19 21:26 Tylenol #3 PO 1 tab Q4H PRN Administration Moderate Pain (4-6) Clonidine 0.2 mg 06/01/19 09:00 06/04/19 10:25 Catapres PO 0.2 mg BID STEVEN Administration Clonidine 0.1 mg 06/01/19 23:48 06/03/19 04:24 Catapres PO 0.1 mg Q4H PRN Administration SBP Greater Than 180 Hydralazine HCl 10 mg 06/01/19 00:09 06/01/19 22:34 Apresoline SLOW IVP 10 mg Q4H PRN Administration SBP>190 or DBP>95 Hydralazine HCl 25 mg 06/02/19 09:00 06/04/19 10:26 Apresoline PO 25 mg TID STEVEN Administration Minoxidil 10 mg 06/03/19 08:53 06/04/19 10:25 Minoxidil PO 10 mg DAILY STEVEN Administration Nifedipine 30 mg 06/02/19 09:00 06/04/19 10:25 Procardia Xl PO 30 mg DAILY STEVEN Administration Tramadol HCl 50 mg 06/01/19 14:55 06/02/19 17:35 Ultram PO 50 mg Q4H PRN Administration Pain 1-5 - Exam Neck: negative: supple, symmetric, no JVD, no thyromegaly, no lymphadenopathy, no carotid bruit, JVD Heart: negative: RRR, no murmur, no gallops, no rubs, normal peripheral pulses, irregular, diminshed peripheral pulses, murmur present, II/IV, III/IV Respiratory: negative: CTAB, no wheezes, no rales, no ronchi, normal chest expansion, no tachypnea, normal percussion, rales, rhonchi, tachypneic, wheezes Hosp A/P (1) ESRD (end stage renal disease) Code(s): N18.6 - END STAGE RENAL DISEASE Status: Acute (2) HTN (hypertension) Code(s): I10 - ESSENTIAL (PRIMARY) HYPERTENSION Status: Acute (3) Anemia of renal disease Code(s): N18.9 - CHRONIC KIDNEY DISEASE, UNSPECIFIED; D63.1 - ANEMIA IN CHRONIC KIDNEY DISEASE Status: Chronic - Plan pt underwent tunnel cath placement and got dialysis today. will continue home meds and prn meds for his blood pressure. 06/02 will start pt on procardia instead of norvasc since his bp is still elevated. pt inquiring about PD dialysis 06/03 will add scheduled hydrazine. pt getting dialysis. 06/04 discharge when ok with nephrology. pt to get PD cath on friday.
[2019-06-04] MEDS ORDERED: Lidocaine 2% Viscous Solution 10 ML, Aluminum & Magnesium Hydroxide 30 ML SSW SCH (23:00)
[2019-06-05] MEDS: Acetaminophen 500 MG TAB PO PRN (02:11)
[2019-06-05] MEDS ORDERED: Famotidine/PF 20 mg/2ml Vial SLOW IVP SCH (09:00)
[2019-06-05] MEDS: Calcitriol 0.25 MCG CAP PO SCH (09:15)
[2019-06-05] MEDS: NIFEdipine XL 30 MG TAB PO SCH (09:15)
[2019-06-05] MEDS: Minoxidil 10 MG TAB PO SCH (09:15)
[2019-06-05] MEDS: hydrALAZINE 25 MG TAB PO SCH ×3 (09:15→21:03)
[2019-06-05] MEDS: cloNIDine 0.2 MG TAB PO SCH ×2 (09:15→21:03)
--- NOTE | 2019-06-05 12:00 | EKG ---
Test Reason : Blood Pressure : / mmHG Vent. Rate : 062 BPM Atrial Rate : 062 BPM P-R Int : 154 ms QRS Dur : 098 ms QT Int : 428 ms P-R-T Axes : 048 -02 006 degrees QTc Int : 434 ms Normal sinus rhythm Possible Left atrial enlargement Left ventricular hypertrophy Abnormal ECG No ST elevation/RI Confirmed by MISSY DOWNS, SERGO ([id number]), development editor RADHA FAIR ([id number]) on 06/05/2019 12:00:17 PM Referred By: Confirmed By:SERGO LOUIS MD
--- NOTE | 2019-06-05 14:52 | PDOC.HOSPP ---
- Subjective Encounter Date: 06/05/19 Encounter Time: 14:00 Subjective: Patient seen and examined for LEXI - tolerating dialysis. No CP/N/V. No new complaints. No overnight events - Objective Vital Signs & Weight: Vital Signs (12 hours) Temp Pulse Resp BP BP Pulse Ox 06/05/19 12:33 98.1 F 73 16 156/75 H 97 06/05/19 09:15 72 170/80 H 06/05/19 07:57 98.6 F 72 17 170/80 H 94 L 06/05/19 04:00 98.8 F 72 16 136/65 93 L Weight Weight 223 lb 4.8 oz Result Diagrams: 06/04/19 05:15 06/04/19 05:15 Hospitalist ROS - Review of Systems Cardiovascular: denies: chest pain, palpitations, orthopnea, paroxysmal noc. dyspnea, edema, light headedness, other Gastrointestinal: denies: nausea, vomiting, abdominal pain, diarrhea, constipation, melena, hematochezia, other - Medication Medications: Active Medications Generic Name Dose Route Start Last Admin Trade Name Freq PRN Reason Stop Dose Admin Acetaminophen 1,000 mg 06/01/19 14:55 06/05/19 02:11 Tylenol PO 1,000 mg Q6H PRN Administration Moderate to Severe Pain (6-10) Acetaminophen/Codeine Phosphate 1 tab 06/01/19 20:01 06/03/19 21:26 Tylenol #3 PO 1 tab Q4H PRN Administration Moderate Pain (4-6) Calcitriol 0.25 mcg 06/05/19 09:00 06/05/19 09:15 Rocaltrol PO 0.25 mcg DAILY STEVEN Administration Clonidine 0.2 mg 06/01/19 09:00 06/05/19 09:15 Catapres PO 0.2 mg BID STEVEN Administration Clonidine 0.1 mg 06/01/19 23:48 06/03/19 04:24 Catapres PO 0.1 mg Q4H PRN Administration SBP Greater Than 180 Epoetin Daniel-epbx 7,500 unit 06/04/19 09:30 06/04/19 17:36 Retacrit SC 7,500 unit Q7D STEVEN Administration Hydralazine HCl 10 mg 06/01/19 00:09 06/01/19 22:34 Apresoline SLOW IVP 10 mg Q4H PRN Administration SBP>190 or DBP>95 Hydralazine HCl 25 mg 06/02/19 09:00 06/05/19 09:15 Apresoline PO 25 mg TID STEVEN Administration Minoxidil 10 mg 06/03/19 08:53 06/05/19 09:15 Minoxidil PO 10 mg DAILY STEVEN Administration Nifedipine 30 mg 06/02/19 09:00 06/05/19 09:15 Procardia Xl PO 30 mg DAILY STEVEN Administration Tramadol HCl 50 mg 06/01/19 14:55 06/02/19 17:35 Ultram PO 50 mg Q4H PRN Administration Pain 1-5 - Exam General Appearance: NAD Heart: RRR, no rubs Respiratory: CTAB, no rales Gastrointestinal: soft, non-tender, normal bowel sounds Extremities: no edema Hosp A/P (1) LEXI (acute kidney injury) Code(s): N17.9 - ACUTE KIDNEY FAILURE, UNSPECIFIED Status: Acute (2) Anemia of renal disease Code(s): N18.9 - CHRONIC KIDNEY DISEASE, UNSPECIFIED; D63.1 - ANEMIA IN CHRONIC KIDNEY DISEASE Status: Chronic (3) Hypertensive urgency Code(s): I16.0 - HYPERTENSIVE URGENCY Status: Acute (4) Volume overload Code(s): E87.70 - FLUID OVERLOAD, UNSPECIFIED Status: Acute (5) ESRD (end stage renal disease) Code(s): N18.6 - END STAGE RENAL DISEASE Status: Acute (6) CKD (chronic kidney disease) stage 3, GFR 30-59 ml/min Code(s): N18.3 - CHRONIC KIDNEY DISEASE, STAGE 3 (MODERATE) Status: Chronic (7) Fever Code(s): R50.9 - FEVER, UNSPECIFIED Status: Acute - Plan DVT proph w/SCDs Await outpt dialysis setup Cultures sent Hold Atbx for now Cont Clonidine/Procardia XL and other meds as above AM labs Ambulate
[2019-06-05 15:20] LABS: Bacteria/HPF None Seen HPF (None Seen); Bilirubin Negative (Negative); Blood, Urine Trace (Negative); Clarity Clear (Clear); Glucose, Urine (Dipstick) Normal (Negative); Leukocyte 25 Leu/uL (Negative); Nitrite Negative (Negative); Protein, Urine (Dipstick) 300 mg/dL (Neg-Trace); RBC/HPF 0-3 HPF (0-3); Squamous Epithelial 0-3 HPF (0-3); Urobilinogen Normal mg/dL (Less than 2)
[2019-06-05] MEDS: Acetaminophen/Codeine 30-300mg Tablet PO PRN (16:24)
[2019-06-05] MEDS: ceFAZolin 1 GM/D5W 1 GM in Premix Bag 1 BAG IVPB SCH (21:02)
[2019-06-06 05:56] LABS: #Eosinphils 0.1 thou/uL (0.0-0.7); #Lymphocytes 0.6 thou/uL (1.20-3.40); #Monocytes 0.9 thou/uL (0.11-0.59); #Neutrophils 4.7 thou/uL (1.40-6.50); %Basophils 0.8 % (0.0-1.0); %Eosinophils 1.7 % (0.0-10.0); %Lymphocytes 9.7 % (21.0-51.0); %Monocytes 14.4 % (0.0-10.0); %Neutrophils 73.5 % (42.0-75.0); Hemoglobin 7.6 g/dL (14.0-18.0); Mean Corpuscular HGB CONC 31.8 g/dL (32.0-36.0); Mean Corpuscular Hemoglobin 28.7 pg (27.0-31.0); Mean Corpuscular Volume 90.2 fL (78.0-98.0); Mean Platelet Volume 8.1 fL (7.4-10.4); Platelet Count 193 thou/uL (130-400); RBC Distribution Width 14.6 % (11.5-14.5); Red Blood Cell (RBC) Count 2.65 mill/uL (4.70-6.10); White Blood Cell (WBC) Count 6.3 thou/uL (4.8-10.8)
[2019-06-06] MEDS: Minoxidil 10 MG TAB PO SCH (09:00)
[2019-06-06] MEDS: Calcitriol 0.25 MCG CAP PO SCH (09:00)
[2019-06-06] MEDS: NIFEdipine XL 30 MG TAB PO SCH (09:01)
[2019-06-06] MEDS: Saccharomyces boulardii 250 MG CAP PO SCH (09:01)
[2019-06-06] MEDS: hydrALAZINE 25 MG TAB PO SCH ×3 (09:01→20:44)
[2019-06-06] MEDS: cloNIDine 0.2 MG TAB PO SCH ×2 (09:02→20:44)
[2019-06-06] MEDS: Famotidine/PF 20 mg/2ml Vial SLOW IVP SCH (09:04)
--- NOTE | 2019-06-06 13:49 | PDOC.HOSPP ---
- Subjective Encounter Date: 06/06/19 Encounter Time: 11:30 Subjective: Patient seen and examined for LEXI. No CP or SOB. No new complaints. No overnight events - Objective Vital Signs & Weight: Vital Signs (12 hours) Temp Pulse Resp BP BP Pulse Ox 06/06/19 09:02 163/80 H 06/06/19 09:01 67 163/80 H 06/06/19 08:30 97 06/06/19 07:47 98.5 F 67 19 163/80 H 97 Weight Weight 223 lb 4.8 oz I&O: 06/05/19 06/06/19 06/07/19 06:59 06:59 06:59 Intake Total 750 Balance 750 Result Diagrams: 06/06/19 05:51 06/04/19 05:15 Additional Labs: Microbiology 06/05/19 15:01 Urine voided Urine Culture - Preliminary NO GROWTH AT 12 HOURS 06/05/19 14:08 Port - Left Internal Jugular Vein Blood Culture - Preliminary Specimen has been received and culture in progress. No Growth to date. 06/05/19 12:29 Port - Left Internal Jugular Vein Blood Culture - Preliminary Specimen has been received and culture in progress. No Growth to date. Hospitalist ROS - Review of Systems Cardiovascular: denies: chest pain, palpitations, orthopnea, paroxysmal noc. dyspnea, edema, light headedness, other Gastrointestinal: denies: nausea, vomiting, abdominal pain, diarrhea, constipation, melena, hematochezia, other - Medication Medications: Active Medications Generic Name Dose Route Start Last Admin Trade Name Freq PRN Reason Stop Dose Admin Acetaminophen 1,000 mg 06/01/19 14:55 06/05/19 02:11 Tylenol PO 1,000 mg Q6H PRN Administration Moderate to Severe Pain (6-10) Acetaminophen/Codeine Phosphate 1 tab 06/01/19 20:01 06/05/19 16:24 Tylenol #3 PO 1 tab Q4H PRN Administration Moderate Pain (4-6) Calcitriol 0.25 mcg 06/05/19 09:00 06/06/19 09:00 Rocaltrol PO 0.25 mcg DAILY STEVEN Administration Clonidine 0.2 mg 06/01/19 09:00 06/06/19 09:02 Catapres PO 0.2 mg BID STEVEN Administration Clonidine 0.1 mg 06/01/19 23:48 06/03/19 04:24 Catapres PO 0.1 mg Q4H PRN Administration SBP Greater Than 180 Epoetin Daniel-epbx 7,500 unit 06/04/19 09:30 06/04/19 17:36 Retacrit SC 7,500 unit Q7D STEVEN Administration Famotidine 20 mg 06/06/19 09:00 06/06/19 09:04 Pepcid SLOW IVP Not Given DAILY STEVEN Hydralazine HCl 10 mg 06/01/19 00:09 06/01/19 22:34 Apresoline SLOW IVP 10 mg Q4H PRN Administration SBP>190 or DBP>95 Hydralazine HCl 25 mg 06/02/19 09:00 06/06/19 09:01 Apresoline PO 25 mg TID STEVEN Administration Cefazolin Sodium/Dextrose 1 gm 50 mls @ 100 mls/hr 06/05/19 20:00 06/05/19 21 :02 / Device IVPB Not Given 2000 STEVEN Minoxidil 10 mg 06/03/19 08:53 06/06/19 09:00 Minoxidil PO 10 mg DAILY STEVEN Administration Nifedipine 30 mg 06/02/19 09:00 06/06/19 09:01 Procardia Xl PO 30 mg DAILY STEVEN Administration Saccharomyces Boulardii 250 mg 06/06/19 09:00 06/06/19 09:01 Florastor PO 250 mg DAILY STEVEN Administration Tramadol HCl 50 mg 06/01/19 14:55 06/02/19 17:35 Ultram PO 50 mg Q4H PRN Administration Pain 1-5 - Exam General Appearance: NAD, awake alert Neck: supple, no JVD Extremities: no edema Neurological: no new deficit Psychiatric: normal affect, A&O x 3 Hosp A/P (1) LEXI (acute kidney injury) Code(s): N17.9 - ACUTE KIDNEY FAILURE, UNSPECIFIED Status: Acute (2) Anemia of renal disease Code(s): N18.9 - CHRONIC KIDNEY DISEASE, UNSPECIFIED; D63.1 - ANEMIA IN CHRONIC KIDNEY DISEASE Status: Chronic (3) Hypertensive urgency Code(s): I16.0 - HYPERTENSIVE URGENCY Status: Acute (4) Volume overload Code(s): E87.70 - FLUID OVERLOAD, UNSPECIFIED Status: Acute (5) ESRD (end stage renal disease) Code(s): N18.6 - END STAGE RENAL DISEASE Status: Acute (6) CKD (chronic kidney disease) stage 3, GFR 30-59 ml/min Code(s): N18.3 - CHRONIC KIDNEY DISEASE, STAGE 3 (MODERATE) Status: Chronic (7) Fever Code(s): R50.9 - FEVER, UNSPECIFIED Status: Acute - Plan DVT proph w/SCDs Await outpt dialysis setup Cont Ancef daily empirically Cont Clonidine/Procardia XL/Minoxidil and other meds as above Ambulate
[2019-06-06] MEDS: ceFAZolin 1 GM/D5W 1 GM in Premix Bag 1 BAG IVPB SCH (20:44)
[2019-06-07] MEDS: Acetaminophen 500 MG TAB PO PRN (00:38)
[2019-06-07] MEDS: Acetaminophen/Codeine 30-300mg Tablet PO PRN ×3 (04:38→19:57)
[2019-06-07] MEDS: Ondansetron ODT 4 MG TAB PO PRN (04:38)
[2019-06-07 05:44] LABS: #Basophils 0.1 thou/uL (0.0-0.2); #Eosinphils 0.2 thou/uL (0.0-0.7); #Lymphocytes 1.2 thou/uL (1.20-3.40); #Monocytes 0.7 thou/uL (0.11-0.59); #Neutrophils 3.9 thou/uL (1.40-6.50); %Eosinophils 2.9 % (0.0-10.0); %Lymphocytes 19.5 % (21.0-51.0); %Monocytes 11.9 % (0.0-10.0); %Neutrophils 64.6 % (42.0-75.0); Hemoglobin 7.9 g/dL (14.0-18.0); Mean Corpuscular HGB CONC 32.7 g/dL (32.0-36.0); Mean Corpuscular Volume 88.8 fL (78.0-98.0); Mean Platelet Volume 8.9 fL (7.4-10.4); Platelet Count 224 thou/uL (130-400); RBC Distribution Width 14.6 % (11.5-14.5); Red Blood Cell (RBC) Count 2.71 mill/uL (4.70-6.10)
[2019-06-07 06:05] LABS: Anion Gap 14 mmol/L (10-20); BUN (Urea Nitrogen) 36 mg/dL (8.9-20.6); Calc. Creatinine Clearance 22 mL/min (70-130); Calcium 8.9 mg/dL (7.8-10.44); Carbon Dioxide 25 mmol/L (22-29); Chloride 99 mmol/L (98-107); Estimated GFR-MDRD 12; Glucose 86 mg/dL (70-105); Potassium 3.4 mmol/L (3.5-5.1); Sodium 135 mmol/L (136-145)
--- NOTE | 2019-06-07 09:26 | PRG ---
DATE OF SERVICE: 06/07/2019 SERVICE: Renal Medicine. SUBJECTIVE: Mr. Chilel is a 39-year-old black male, who was admitted for uremia and was initiated on hemodialysis. He is currently undergoing hemodialysis today for 4 hours. He has also been scheduled for renal biopsy to get the definitive etiology of his renal failure. He has been having intermittent fever. Blood culture and urine culture done on June 05, 2019 so far showed no growth today. He has been empirically treated with IV antibiotics, but the patient has been refusing to take the IV antibiotics. I counseled him and he decided to take IV antibiotics. No complaints of chest pain or shortness of breath. OBJECTIVE: VITAL SIGNS: Blood pressure 149/68, heart rate 78, respiratory rate 16, temperature 98.9, pulse ox 94%, and temperature 100.6. GENERAL: Awake, alert, comfortable, not in distress. SKIN: Adequate turgor. HEENT: Pale conjunctivae. Anicteric sclerae. NECK: No neck mass. No carotid bruits. No JVD. CHEST: No deformities. LUNGS: Clear breath sounds. No wheezing. No crackles. HEART: Normal sinus rhythm. No murmur. No gallops. No rubs. ABDOMEN: Globular, soft, and nontender. No masses. EXTREMITIES: No edema. No deformities. MEDICATIONS: Medications of June 07, 2019, was reviewed. LABORATORY DATA: Laboratories of June 07, 2019; white count 6, hemoglobin 7.9. Sodium 135, potassium 3.4, chloride 99, carbon dioxide 25, BUN 36, creatinine 6.5, and calcium 8.9. PTH 360. Serologies, hepatitis B and C were negative. ASSESSMENT AND PLAN: 1. Chronic renal failure/end-stage renal disease - continuing 3 times a week hemodialysis regimen. Awaiting outpatient dialysis placement. Renal biopsy will be done today. 2. Labile hypertension, much improved with initiation of BP medications. The patient counseled regarding compliance. 3. Fever - intermittent. Blood culture and urine culture have been negative so far. Continue IV cefazolin. 4. Anemia. Continuing weekly Epogen. Recheck basic metabolic panel and CBC in a.m. Job ID: [id number]
[2019-06-07] MEDS: cloNIDine 0.2 MG TAB PO SCH ×2 (13:07→19:58)
[2019-06-07] MEDS: Calcitriol 0.25 MCG CAP PO SCH (13:07)
[2019-06-07] MEDS: Saccharomyces boulardii 250 MG CAP PO SCH (13:08)
[2019-06-07] MEDS: NIFEdipine XL 30 MG TAB PO SCH (13:08)
[2019-06-07] MEDS: hydrALAZINE 25 MG TAB PO SCH ×3 (13:08→19:58)
[2019-06-07] MEDS: ceFAZolin 1 GM/D5W 1 GM in Premix Bag 1 BAG IVPB SCH (13:09)
[2019-06-07] MEDS: Minoxidil 10 MG TAB PO SCH (14:06)
[2019-06-07] MEDS: Famotidine/PF 20 mg/2ml Vial SLOW IVP SCH (14:06)
[2019-06-07] MEDS ORDERED: Famotidine 20 MG TAB PO SCH (21:00)
--- NOTE | 2019-06-07 22:42 | PDOC.HOSPP ---
- Subjective Encounter Date: 06/07/19 Encounter Time: 09:30 Subjective: Patient seen and examined for LEXI. No N/V. No new complaints. No overnight events - Objective Vital Signs & Weight: Vital Signs (12 hours) Temp Pulse Resp BP BP Pulse Ox 06/07/19 20:00 98.4 F 77 18 149/79 H 97 06/07/19 19:58 79 199/107 H 06/07/19 16:29 72 217/122 H 06/07/19 16:00 98.1 F 68 18 166/89 H 96 06/07/19 14:32 172/90 H 06/07/19 13:08 72 217/122 H 06/07/19 13:07 217/122 H 06/07/19 13:05 98.3 F 72 18 217/122 H 98 Weight Weight 223 lb 4.8 oz I&O: 06/06/19 06/07/19 06/08/19 06:59 06:59 06:59 Intake Total 750 500 Balance 750 500 Result Diagrams: 06/07/19 04:46 06/07/19 04:46 Hospitalist ROS - Review of Systems Cardiovascular: denies: chest pain, palpitations, orthopnea, paroxysmal noc. dyspnea, edema, light headedness, other Gastrointestinal: denies: nausea, vomiting, abdominal pain, diarrhea, constipation, melena, hematochezia, other - Medication Medications: Active Medications Generic Name Dose Route Start Last Admin Trade Name Freq PRN Reason Stop Dose Admin Acetaminophen 1,000 mg 06/01/19 14:55 06/07/19 00:38 Tylenol PO 1,000 mg Q6H PRN Administration Moderate to Severe Pain (6-10) Acetaminophen/Codeine Phosphate 1 tab 06/01/19 20:01 06/07/19 19:57 Tylenol #3 PO 1 tab Q4H PRN Administration Moderate Pain (4-6) Calcitriol 0.25 mcg 06/05/19 09:00 06/07/19 13:07 Rocaltrol PO 0.25 mcg DAILY STEVEN Administration Clonidine 0.2 mg 06/01/19 09:00 06/07/19 19:58 Catapres PO 0.2 mg BID STEVEN Administration Clonidine 0.1 mg 06/01/19 23:48 06/03/19 04:24 Catapres PO 0.1 mg Q4H PRN Administration SBP Greater Than 180 Epoetin Daniel-epbx 7,500 unit 06/04/19 09:30 06/04/19 17:36 Retacrit SC 7,500 unit Q7D STEVEN Administration Famotidine 20 mg 06/07/19 21:00 06/07/19 19:58 Pepcid PO 20 mg BID STEVEN Administration Hydralazine HCl 10 mg 06/01/19 00:09 06/01/19 22:34 Apresoline SLOW IVP 10 mg Q4H PRN Administration SBP>190 or DBP>95 Hydralazine HCl 25 mg 06/02/19 09:00 06/07/19 19:58 Apresoline PO 25 mg TID STEVEN Administration Cefazolin Sodium/Dextrose 1 gm 50 mls @ 100 mls/hr 06/07/19 13:00 06/07/19 13 :09 / Device IVPB Not Given 1300 STEVEN Nifedipine 30 mg 06/02/19 09:00 06/07/19 13:08 Procardia Xl PO 30 mg DAILY STEEVN Administration Ondansetron HCl 4 mg 06/01/19 00:07 06/07/19 04:38 Zofran Odt PO 4 mg Q6H PRN Administration Nausea/Vomiting Saccharomyces Boulardii 250 mg 06/06/19 09:00 06/07/19 13:08 Florastor PO 250 mg DAILY STEVEN Administration Tramadol HCl 50 mg 06/01/19 14:55 06/02/19 17:35 Ultram PO 50 mg Q4H PRN Administration Pain 1-5 - Exam General Appearance: NAD Heart: RRR, no gallops Respiratory: CTAB, no rales Gastrointestinal: soft, non-tender, normal bowel sounds Hosp A/P (1) LEXI (acute kidney injury) Code(s): N17.9 - ACUTE KIDNEY FAILURE, UNSPECIFIED Status: Acute (2) Anemia of renal disease Code(s): N18.9 - CHRONIC KIDNEY DISEASE, UNSPECIFIED; D63.1 - ANEMIA IN CHRONIC KIDNEY DISEASE Status: Chronic (3) Hypertensive urgency Code(s): I16.0 - HYPERTENSIVE URGENCY Status: Acute (4) Volume overload Code(s): E87.70 - FLUID OVERLOAD, UNSPECIFIED Status: Acute (5) ESRD (end stage renal disease) Code(s): N18.6 - END STAGE RENAL DISEASE Status: Acute (6) CKD (chronic kidney disease) stage 3, GFR 30-59 ml/min Code(s): N18.3 - CHRONIC KIDNEY DISEASE, STAGE 3 (MODERATE) Status: Chronic (7) Fever Code(s): R50.9 - FEVER, UNSPECIFIED Status: Acute - Plan Renal biopsy today Cont Ancef daily empirically - Patient has been refusing Await outpt dialysis setup Cont Clonidine/Procardia XL/Minoxidil Cont other meds as above
[2019-06-08] MEDS: Acetaminophen/Codeine 30-300mg Tablet PO PRN ×2 (04:42→14:50)
[2019-06-08] MEDS: Ondansetron ODT 4 MG TAB PO PRN (04:42)
[2019-06-08 05:05] LABS: #Eosinphils 0.2 thou/uL (0.0-0.7); #Monocytes 0.7 thou/uL (0.11-0.59); #Neutrophils 2.7 thou/uL (1.40-6.50); %Basophils 0.8 % (0.0-1.0); %Eosinophils 4.9 % (0.0-10.0); %Lymphocytes 21.2 % (21.0-51.0); %Monocytes 14.3 % (0.0-10.0); %Neutrophils 58.7 % (42.0-75.0); Hemoglobin 7.5 g/dL (14.0-18.0); Mean Corpuscular HGB CONC 32.8 g/dL (32.0-36.0); Mean Corpuscular Hemoglobin 29.3 pg (27.0-31.0); Mean Corpuscular Volume 89.2 fL (78.0-98.0); Mean Platelet Volume 8.2 fL (7.4-10.4); Platelet Count 217 thou/uL (130-400); RBC Distribution Width 14.4 % (11.5-14.5); Red Blood Cell (RBC) Count 2.57 mill/uL (4.70-6.10); White Blood Cell (WBC) Count 4.7 thou/uL (4.8-10.8)
[2019-06-08 05:14] LABS: Anion Gap 11 mmol/L (10-20); BUN (Urea Nitrogen) 17 mg/dL (8.9-20.6); Calc. Creatinine Clearance 31 mL/min (70-130); Calcium 8.9 mg/dL (7.8-10.44); Carbon Dioxide 29 mmol/L (22-29); Chloride 102 mmol/L (98-107); Estimated GFR-MDRD 17; Glucose 87 mg/dL (70-105); Potassium 3.7 mmol/L (3.5-5.1); Sodium 138 mmol/L (136-145)
[2019-06-08] MEDS: Saccharomyces boulardii 250 MG CAP PO SCH (08:59)
[2019-06-08] MEDS: Calcitriol 0.25 MCG CAP PO SCH (08:59)
[2019-06-08] MEDS: NIFEdipine XL 30 MG TAB PO SCH (08:59)
[2019-06-08] MEDS: hydrALAZINE 25 MG TAB PO SCH ×3 (09:00→20:54)
[2019-06-08] MEDS: cloNIDine 0.2 MG TAB PO SCH ×2 (09:01→20:55)
--- NOTE | 2019-06-08 10:10 | PRG ---
DATE OF SERVICE: 06/08/2019 SUBJECTIVE: Mr. Chilel is a 39-year-old black male, who was admitted for uremia and labile hypertension. He was initiated on dialysis. He is receiving 3 times a week hemodialysis. He is scheduled for renal biopsy, but he is now declining renal biopsy. He has had dialysis time shorten also. No other complaints today. No chest pain or shortness of breath. OBJECTIVE: VITAL SIGNS: Blood pressure 158/82, heart rate 60, respiratory rate 20, temperature 98.3, pulse ox 98%. GENERAL: Noted to be awake, alert, comfortable, not in overt distress. SKIN: Adequate turgor. HEENT: He has slightly pale conjunctivae. Anicteric sclerae. No neck mass. No carotid bruits. No JVD. CHEST: No deformities. LUNGS: Clear breath sounds. HEART: Normal sinus rhythm. No murmur. No gallops. No rubs. ABDOMEN: Globular, soft, nontender. No masses. EXTREMITIES: No edema. MEDICATIONS: Medications of June 08, 2019, was reviewed. LABORATORY DATA: Laboratories of June 08, 2019, white count 4.7, hemoglobin 7.5. Sodium 138, potassium 3.7, chloride 102, carbon dioxide 29, BUN 17, creatinine 4.64, glucose 87, calcium 8.9. ASSESSMENT AND PLAN: 1. Chronic renal failure/end-stage renal disease, continuing 3 times a week hemodialysis. Consider changing hemodialysis regimen to a 3.5-hour treatment. 2. [place] [address] [place] subcu q.week. In addition, start ferrous sulfate 325 mg p.o. b.i.d. 3. Labile hypertension, much improved. Continue current blood pressure medications. 4. Overall agree with current management. Recheck CBC and basic metabolic panel in a.m. Job ID: [id number]
--- NOTE | 2019-06-08 13:54 | PDOC.HOSPP ---
- Subjective Encounter Date: 06/08/19 Encounter Time: 13:53 Subjective: no sob, etc - Objective Vital Signs & Weight: Vital Signs (12 hours) Temp Pulse Resp BP BP Pulse Ox 06/08/19 09:01 150/82 H 06/08/19 09:00 60 150/82 H 06/08/19 08:59 60 150/82 H 06/08/19 08:00 98 06/08/19 07:37 98.3 F 60 20 150/82 H 98 06/08/19 04:00 98.1 F 60 18 125/74 96 Weight Weight 223 lb 4.8 oz I&O: 06/07/19 06/08/19 06/09/19 06:59 06:59 06:59 Intake Total 1220 Balance 1220 Result Diagrams: 06/08/19 04:46 06/08/19 04:46 Hospitalist ROS - Medication Medications: Active Medications Generic Name Dose Route Start Last Admin Trade Name Freq PRN Reason Stop Dose Admin Acetaminophen 1,000 mg 06/01/19 14:55 06/07/19 00:38 Tylenol PO 1,000 mg Q6H PRN Administration Moderate to Severe Pain (6-10) Acetaminophen/Codeine Phosphate 1 tab 06/01/19 20:01 06/08/19 04:42 Tylenol #3 PO 1 tab Q4H PRN Administration Moderate Pain (4-6) Calcitriol 0.25 mcg 06/05/19 09:00 06/08/19 08:59 Rocaltrol PO 0.25 mcg DAILY STEVEN Administration Clonidine 0.2 mg 06/01/19 09:00 06/08/19 09:01 Catapres PO 0.2 mg BID STEVEN Administration Clonidine 0.1 mg 06/01/19 23:48 06/03/19 04:24 Catapres PO 0.1 mg Q4H PRN Administration SBP Greater Than 180 Epoetin Daniel-epbx 7,500 unit 06/04/19 09:30 06/04/19 17:36 Retacrit SC 7,500 unit Q7D STEVEN Administration Hydralazine HCl 10 mg 06/01/19 00:09 06/01/19 22:34 Apresoline SLOW IVP 10 mg Q4H PRN Administration SBP>190 or DBP>95 Hydralazine HCl 25 mg 06/02/19 09:00 06/08/19 09:00 Apresoline PO 25 mg TID STEVEN Administration Nifedipine 30 mg 06/02/19 09:00 06/08/19 08:59 Procardia Xl PO 30 mg DAILY STEVEN Administration Ondansetron HCl 4 mg 06/01/19 00:07 06/08/19 04:42 Zofran Odt PO 4 mg Q6H PRN Administration Nausea/Vomiting Saccharomyces Boulardii 250 mg 06/06/19 09:00 06/08/19 08:59 Florastor PO 250 mg DAILY STEVEN Administration Tramadol HCl 50 mg 06/01/19 14:55 06/02/19 17:35 Ultram PO 50 mg Q4H PRN Administration Pain 1-5 - Exam General Appearance: awake alert Neck: no JVD Heart: RRR, no murmur Respiratory: CTAB Gastrointestinal: soft, normal bowel sounds Extremities: no edema Hosp A/P (1) ESRD (end stage renal disease) Code(s): N18.6 - END STAGE RENAL DISEASE Status: Acute (2) HTN (hypertension) Code(s): I10 - ESSENTIAL (PRIMARY) HYPERTENSION Status: Chronic Qualifiers: Hypertension type: essential hypertension Qualified Code(s): I10 - Essential (primary) hypertension (3) Volume overload Code(s): E87.70 - FLUID OVERLOAD, UNSPECIFIED Status: Resolved (4) Tobacco dependence Code(s): F17.200 - NICOTINE DEPENDENCE, UNSPECIFIED, UNCOMPLICATED Status: Chronic - Plan cont current antihypertensives cont HD per renaoutpt HD chair pending
[2019-06-08] MEDS: ceFAZolin 1 GM/D5W 1 GM in Premix Bag 1 BAG IVPB SCH (14:59)
[2019-06-08] MEDS: Ferrous Sulfate 325 MG TAB PO SCH (17:00)
[2019-06-08] MEDS ORDERED: Famotidine 20 MG TAB PO SCH (21:00)
[2019-06-09 06:18] LABS: #Eosinphils 0.4 thou/uL (0.0-0.7); #Monocytes 0.7 thou/uL (0.11-0.59); %Basophils 0.4 % (0.0-1.0); %Eosinophils 5.8 % (0.0-10.0); %Lymphocytes 16.9 % (21.0-51.0); %Monocytes 10.9 % (0.0-10.0); Hemoglobin 7.8 g/dL (14.0-18.0); Mean Corpuscular HGB CONC 32.5 g/dL (32.0-36.0); Mean Corpuscular Volume 89.2 fL (78.0-98.0); Platelet Count 262 thou/uL (130-400); RBC Distribution Width 14.3 % (11.5-14.5); Red Blood Cell (RBC) Count 2.68 mill/uL (4.70-6.10); White Blood Cell (WBC) Count 6.1 thou/uL (4.8-10.8)
[2019-06-09 06:58] LABS: Anion Gap 11 mmol/L (10-20); BUN (Urea Nitrogen) 26 mg/dL (8.9-20.6); Calc. Creatinine Clearance 22 mL/min (70-130); Calcium 9.1 mg/dL (7.8-10.44); Carbon Dioxide 28 mmol/L (22-29); Chloride 102 mmol/L (98-107); Estimated GFR-MDRD 12; Glucose 80 mg/dL (70-105); Potassium 3.9 mmol/L (3.5-5.1); Sodium 137 mmol/L (136-145)
[2019-06-09] MEDS: Calcitriol 0.25 MCG CAP PO SCH (08:03)
[2019-06-09] MEDS: Saccharomyces boulardii 250 MG CAP PO SCH (08:03)
[2019-06-09] MEDS: Ferrous Sulfate 325 MG TAB PO SCH ×2 (08:03→16:54)
[2019-06-09] MEDS: hydrALAZINE 25 MG TAB PO SCH ×2 (08:03→15:19)
[2019-06-09] MEDS: cloNIDine 0.2 MG TAB PO SCH (08:03)
[2019-06-09] MEDS: NIFEdipine XL 30 MG TAB PO SCH (09:44)
--- NOTE | 2019-06-09 10:05 | PRG ---
DATE OF SERVICE: 06/09/2019 SUBJECTIVE: Mr. Chilel is a 39-year-old black male with known history of chronic renal failure/ESRD. He is undergoing hemodialysis and tolerating said treatment. I asked him about the renal biopsy, he is still declining. He is actually feeling better with the dialysis regimen. Per his request, I have shortened the dialysis treatment to 3.5 hours. No complaints of chest pain or shortness of breath. OBJECTIVE: VITAL SIGNS: Blood pressure is 174/82, before BP medications; heart rate 62; respiratory rate 16; temperature 98.2; and pulse ox 98%. GENERAL: The patient is awake and alert, sitting comfortable, not in distress. SKIN: Adequate turgor. HEENT: Pinkish conjunctivae. Anicteric sclerae. NECK: No neck mass. No carotid bruits. No JVD. CHEST: No deformities. LUNGS: Clear breath sounds. HEART: Normal sinus rhythm. No murmur, no gallops, and no rubs. ABDOMEN: Globular, soft, and nontender. No masses. EXTREMITIES: No edema. No deformities. MEDICATIONS: Medications of 06/09/2019 were reviewed. LABORATORY DATA: On 06/09/2019: White count 6.1, hemoglobin 7.8, and hematocrit 23.9. Sodium 137, potassium 3.9, chloride 102, carbon dioxide 28, BUN 26, creatinine 6.32, glucose 80, and calcium 9.1. ASSESSMENT AND PLAN: 1. Chronic renal failure/end-stage renal disease. Continue Friday, Friday, and Friday hemodialysis. Fluid removal only as tolerated. 2. Hypertension. The patient complaining of feeling tired when the blood pressure is normotensive. For this reason, the minoxidil has been discontinued. Continue current antihypertensive regimen. 3. Anemia. Continuing weekly Epogen. 4. Awaiting outpatient hemodialysis placement. Job ID: [id number]
--- NOTE | 2019-06-09 14:49 | DIS ---
DATE OF ADMISSION: 05/31/2019 DATE OF DISCHARGE: 06/09/2019 PRIMARY CARE PHYSICIAN: Admitted with no PCP. DISPOSITION: Discharged home. FINAL DIAGNOSES: End-stage renal disease, hypertension, volume overload, and tobacco abuse. ADMITTING DIAGNOSES: Acute on chronic kidney disease and hypertensive urgency. DISCHARGE MEDICATIONS: 1. Hydralazine 25 mg three times a day. 2. Clonidine 0.2 mg twice a day. 3. Nifedipine XL 30 mg a day. 4. Rocaltrol 0.25 mg a day. ALLERGIES: NO KNOWN DRUG ALLERGIES. PENDING AT THE TIME OF DISCHARGE: Nothing. CODE STATUS: Full. DIET: High-protein, renal. HOSPITAL COURSE: The patient admitted to [facility] Emergency Department to [facility]. The patient presented with leg swelling and distention. He was found to have acute on chronic renal failure with volume overload and hypertensive urgency. Blood pressure was 190/100. His chest x-ray revealed some mild congestion with a borderline cardiomegaly. A left subclavian hemodialysis catheter was placed. Right tunneled hemodialysis catheter on 06/01/2019 for just the hemodialysis was started. Dr. Yared Zapata was consulted. The patient improved dramatically during his hospital stay with resolution of his hypertensive state. He was placed on oral medicines for his blood pressure. LABORATORY DATA: Initially, his hemoglobin was 8.3, white count 7.2, and platelet count 292,000. At discharge, his hemoglobin was 7.8, white count 6.1, and platelet count 262,000. On admission, his sodium 139, potassium 4.1, CO2 of 17, BUN 75, and creatinine 8.98. At discharge, sodium 137, potassium 3.9, CO2 of 28, BUN 26, and creatinine 6.52. His blood pressure is in the 150/80 range. He is being discharged for outpatient dialysis per Dr. Zapata on Friday, Friday, and Friday. has been obtained. He will receive directions on this. CONSULTATIONS: Dr. Damion Zapata, Nephrology and Dr. Ede Aldana, Cardiovascular Surgery. PROCEDURE: Placement of right tunneled hemodialysis catheter. FOLLOWUP: The patient is to follow up with Dr. Zapata, and he will have his first outpatient dialysis this week on Friday. Job ID: [id number]
[2019-06-09] MEDS: Acetaminophen/Codeine 30-300mg Tablet PO PRN (15:19)
[2019-06-09] MEDS: cloNIDine 0.1 MG TAB PO PRN (15:23)
[2019-06-09 16:51] VITALS: TEMP 98.1
[2019-06-09 19:13] VITALS: BP 180/100
== END 2019-06-09 18:54 | disposition home or self-care (01) | DRG 628 ==
LOC: ERS 19:48 → ERHOLD 22:43 → 3SE 06-01 10:02 → T4-A 06-02 14:51
PROVIDERS: ADMIT Internal Medicine; ATTEND Internal Medicine
PROC: 031B09F Bypass Right Radial Artery to Lower Arm Vein with Autologous Venous Tissue, Open Approach (ICD-10-PCS; principal; 2019-06-01)
PROC: 0JH63XZ Insertion of Tunneled Vascular Access Device into Chest Subcutaneous Tissue and Fascia, Percutaneous Approach (ICD-10-PCS; 2019-06-01)
PROC: 02HV33Z Insertion of Infusion Device into Superior Vena Cava, Percutaneous Approach (ICD-10-PCS; 2019-06-01)
PROC: B518YZA Fluoroscopy of Superior Vena Cava using Other Contrast, Guidance (ICD-10-PCS; 2019-06-01)
PROC: 5A1D70Z Performance of Urinary Filtration, Intermittent, Less than 6 Hours Per Day (ICD-10-PCS; 2019-06-01)
PROC: 02HV33Z Insertion of Infusion Device into Superior Vena Cava, Percutaneous Approach (ICD-10-PCS; 2019-06-01)
DX: E87.70 Fluid overload, unspecified (principal); N18.6 End stage renal disease; N17.9 Acute kidney failure, unspecified; I12.0 Hypertensive chronic kidney disease with stage 5 chronic kidney disease or end stage renal disease; I16.0 Hypertensive urgency; F12.10 Cannabis abuse, uncomplicated; F17.210 Nicotine dependence, cigarettes, uncomplicated; D63.1 Anemia in chronic kidney disease; N25.0 Renal osteodystrophy; R50.9 Fever, unspecified; Z53.29 Procedure and treatment not carried out because of patient's decision for other reasons; Z79.899 Other long term (current) drug therapy
CPT/HCPCS: 36415; 36416; 71045; 80048; 80053; 81001; 82553; 83880; 83970; 84100; 84484; 85025; 85610; 85730; 86580; 86704; 86706; 86803; 87040; 87086; 87340; 90935; 93005; 93970; 96374; C1769; G0257; G0365; J0360; J0670; J0690; J1642; J1644; J2001; J2250; J2704; J2720; J3010; Q0162; Q5105; S0028

== ENCOUNTER 2019-07-22 14:36 | Inpatient (IN) | payer OTHER, SELFPAY ==
--- NOTE | 2019-07-22 15:07 | CT ---
Exam: Head CT without contrast HISTORY: Seizure COMPARISON: none FINDINGS: Hemorrhage: No intraparenchymal hemorrhage or extra-axial hematoma. Brain parenchyma: Cortical linder-white matter differentiation is preserved. No mass effect or midline shift. Basilar cisterns are patent. Ventricular system: Ventricles and sulci are patent and symmetric. Calvarium: Intact. Sinuses and mastoid air cells: Adequate aeration. IMPRESSION: No acute intracranial process.
[2019-07-22 15:09] LABS: #Eosinphils 0.1 thou/uL (0.0-0.7); #Monocytes 0.7 thou/uL (0.11-0.59); #Neutrophils 9.4 thou/uL (1.40-6.50); %Basophils 0.3 % (0.0-1.0); %Eosinophils 0.8 % (0.0-10.0); %Lymphocytes 8.7 % (21.0-51.0); %Monocytes 6.2 % (0.0-10.0); %Neutrophils 84.1 % (42.0-75.0); Hemoglobin 10.4 g/dL (14.0-18.0); Mean Corpuscular HGB CONC 32.4 g/dL (32.0-36.0); Mean Corpuscular Hemoglobin 27.4 pg (27.0-31.0); Mean Corpuscular Volume 84.7 fL (78.0-98.0); Mean Platelet Volume 10.7 fL (7.4-10.4); Platelet Count 154 thou/uL (130-400); RBC Distribution Width 15.6 % (11.5-14.5); Red Blood Cell (RBC) Count 3.81 mill/uL (4.70-6.10); White Blood Cell (WBC) Count 11.2 thou/uL (4.8-10.8)
[2019-07-22] MEDS ORDERED: cloNIDine 0.1 MG TAB ONE (15:15)
[2019-07-22 15:52] LABS: CKMB 2.1 ng/mL (0-6.6)
[2019-07-22] MEDS ORDERED: hydrALAZINE 25 MG TAB ONE (16:34)
[2019-07-22] MEDS ORDERED: hydrALAZINE 20 MG/ML VIAL ONE (16:38)
[2019-07-22 16:54] LABS: Bacteria/HPF 1+ HPF (None Seen); Bilirubin Negative (Negative); Blood, Urine 1+ (Negative); Clarity Clear (Clear); Glucose, Urine (Dipstick) 50 mg/dL (Negative); Leukocyte Negative Leu/uL (Negative); Nitrite Negative (Negative); Protein, Urine (Dipstick) 300 mg/dL (Neg-Trace); RBC/HPF 0-3 HPF (0-3); Squamous Epithelial None Seen HPF (0-3); Urobilinogen Normal mg/dL (Less than 2); WBC/HPF 0-3 HPF (0-3)
[2019-07-22 16:54] LABS: Albumin 4.6 g/dL (3.5-5.0)
[2019-07-22 16:55] LABS: Chloride 97 mmol/L (98-107); Potassium 3.2 mmol/L (3.5-5.1); Sodium 136 mmol/L (136-145)
[2019-07-22 16:56] LABS: Glucose 126 mg/dL (70-105)
[2019-07-22 16:57] LABS: Globulin 3.4 g/dL (2.4-3.5)
[2019-07-22 16:58] LABS: Anion Gap 18 mmol/L (10-20); Bilirubin, Total 1.3 mg/dL (0.2-1.2); Carbon Dioxide 24 mmol/L (22-29)
[2019-07-22 16:59] LABS: Alkaline Phosphatase 73 U/L (40-110)
[2019-07-22 17:00] LABS: Calc. Creatinine Clearance 0 mL/min (70-130); Estimated GFR-MDRD 10
[2019-07-22 17:00] LABS: Medtox Reader # READER 1; THC/Cannabinoid Screen Detected (NotDetected)
[2019-07-22 17:01] LABS: BUN (Urea Nitrogen) 37 mg/dL (8.9-20.6)
[2019-07-22 17:01] LABS: Amphetamine Not Detected (NotDetected); Barbiturates Screen Not Detected (NotDetected); Benzodiazepine Screen Not Detected (NotDetected); Cocaine Metabolite Screen Not Detected (NotDetected); Medtox Control Line Valid? VALID (VALID); Methadone Not Detected (NotDetected); Methamphetamine Detected (NotDetected); Opiate Screen Not Detected (NotDetected); Oxycodone Screen Not Detected (NotDetected); Phencyclidine (PCP) Not Detected (NotDetected); Tricyclic Screen Not Detected (NotDetected)
[2019-07-22 17:02] LABS: ALT (SGPT) 12 U/L (8-55); AST (SGOT) 24 U/L (5-34)
[2019-07-22 17:11] LABS: Sperm/HPF 1+ HPF (None Seen)
[2019-07-22] MEDS ORDERED: cloNIDine 0.2mg/24 Hour PATCH TD SCH (17:30)
[2019-07-22] MEDS ORDERED: Acetaminophen 650 MG Suppository PR PRN (18:11)
[2019-07-22] MEDS ORDERED: Acetaminophen 325 MG TAB PO PRN (18:11)
[2019-07-22] MEDS ORDERED: Bisacodyl 5 MG TAB PO PRN (18:11)
[2019-07-22] MEDS ORDERED: Lorazepam 2 MG/ML VIAL ONE (18:20)
[2019-07-22] MEDS: niCARdipine 25 MG in Sodium Chloride 0.9% 250 ML 240 ML IVPB SCH ×2 (18:29→19:04)
[2019-07-22] MEDS ORDERED: niCARdipine 25 MG in Sodium Chloride 0.9% 250 ML 240 ML IVPB SCH (18:30)
[2019-07-22] MEDS ORDERED: Nicotine 21 MG PATCH TD SCH (18:30)
[2019-07-22] MEDS ORDERED: Vancomycin HCl 1 GM in Premix Bag 1 BAG IVPB SCH ×2 (18:45→19:15)
--- NOTE | 2019-07-22 18:48 | RAD ---
EXAM: Single view of the chest HISTORY: Shortness of breath COMPARISON: 06/01/2019 FINDINGS: Single view of the chest shows an enlarged but stable cardiomediastinal silhouette. The di alysis catheter is unchanged in position. There is no evidence of consolidation, mass, or pleural effusion. The bones are unremarkable. IMPRESSION: No evidence of acute cardiopulmonary disease
[2019-07-22 18:52] LABS: Lactic Acid 12.3 mmol/L (0.5-2.2)
[2019-07-22] MEDS ORDERED: Lorazepam 2 MG/ML VIAL SLOW IVP PRN (19:04)
[2019-07-22] MEDS ORDERED: Piperacillin/Tazobactam 0.75 GM in Sodium Chloride 0.9% 100 ML IVPB PRN (19:04)
[2019-07-22] MEDS ORDERED: Vancomycin HCl 500 MG in Sodium Chloride 0.9% 100 ML IVPB SCH (19:15)
[2019-07-22] MEDS ORDERED: Vancomycin HCl 750 MG in Sodium Chloride 0.9% 250 ML 250 ML IVPB SCH (19:15)
[2019-07-22] MEDS ORDERED: HOLD VANCOMYCIN FOR LEVEL >20 FS SCH (19:15)
[2019-07-22] MEDS ORDERED: Vancomycin HCl 1.25 GM in Sodium Chloride 0.9% 250 ML 250 ML IVPB SCH (19:15)
[2019-07-22] MEDS ORDERED: levETIRAcetam In NaCl (Iso-Os) 1,000 MG in Premix Bag 1 BAG IVPB SCH (19:30)
[2019-07-22] MEDS: niCARdipine 50 MG in Sodium Chloride 0.9% 250 ML 230 ML IVPB SCH (19:56)
[2019-07-22] MEDS: Sodium Chloride 0.9% 1,000 ML IV SCH (19:58)
[2019-07-22] MEDS ORDERED: cefTRIAXone\\ROCEPHIN 1 GM in Sodium Chloride 0.9% 100 ML IVPB SCH (20:00)
[2019-07-22] MEDS ORDERED: Enalaprilat Dihydrate 1.25 MG/ML VIAL SLOW IVP PRN (20:00)
[2019-07-22] MEDS ORDERED: Piperacillin/Tazobactam 2.25 GM in Sodium Chloride 0.9% 100 ML IVPB SCH (21:00)
--- NOTE | 2019-07-22 21:16 | HP ---
PRIMARY CARE PROVIDER: None. CHIEF COMPLAINT: Seizure. HISTORY OF PRESENT ILLNESS: Mr. Chilel is a pleasant 39-year-old gentleman who was seen at [facility] on July 22, 2019. He has a history of end-stage renal disease on hemodialysis, followed by Dr. Zapata. He reports missing dialysis yesterday. He reportedly had a seizure at home. He was agitated and he received Ativan. He was found to have a manual blood pressure of 300/150 in the field. He received 2 tablets of nitroglycerin sublingually, 1 inch nitroglycerin paste, 2 mg Ativan and was brought to the emergency room. The patient is currently lethargic, able to tell me his name, but not answering other questions. No family members by bedside. Collateral history was obtained from review of medical records and discussion with emergency room physician. He was hospitalized at this facility from May 31 to of this year for [id number] kidney disease and hypertensive urgency. He was initiated on dialysis during that hospitalization. He was discharged home on antihypertensives. It is unclear, if he is compliant with his medications. REVIEW OF SYSTEMS: Full review of systems could not be completed secondary to patient's noncooperation. PAST MEDICAL HISTORY: Hypertension, end-stage renal disease on hemodialysis. PAST SURGICAL HISTORY: Right ankle surgery, tunneled hemodialysis catheter placement. ALLERGIES: NO KNOWN DRUG ALLERGIES. CURRENT MEDICATIONS: 1. The patient is supposed to be on hydralazine 25 mg 3 times daily. 2. Clonidine 0.2 mg 2 times daily. 3. Nifedipine XL 30 mg daily. 4. Rocaltrol 0.25 mg daily. FAMILY HISTORY: Could not be obtained. SOCIAL HISTORY: The patient reports he smokes one pack of cigarettes daily. He told me that he used to smoke marijuana, but does not smoke now. He denied any other recreational drug use. He denied any alcohol use. PHYSICAL EXAMINATION: GENERAL: On examination, Mr. Chilel is lethargic, not in acute distress. VITAL SIGNS: Blood pressure is 213/112, pulse 101, respiratory rate 25 and oxygen saturation 99% on room air. He is afebrile. EYES: No scleral icterus, no conjunctival pallor. ENT: Moist mucosal membranes. No oropharyngeal erythema or exudates. NECK: Supple, nontender, trachea is midline. RESPIRATORY: Accessory muscles of breathing are not active. Chest wall movements are symmetric bilaterally. He has a right-sided tunneled dialysis catheter. LUNGS: Clear to auscultation without wheeze, rhonchi, or crepitations. CARDIOVASCULAR: S1 and S2 are heard, regular. Peripheral pulses palpable. ABDOMEN: Soft, nontender, bowel sounds are heard. NEUROLOGIC: Full neurologic examination was not possible secondary to the patient's noncooperation. No facial droop. Deep tendon reflexes 2+, plantars downgoing bilaterally. MUSCULOSKELETAL: Power is 5/5 in all 4 extremities. SKIN: Tattoos. LYMPHATIC: No cervical lymphadenopathy. PSYCHIATRIC: Unable to assess mood, affect. The patient is oriented to self, does not appear oriented to place or time. LABORATORY DATA: Mr. Chilel labs and investigations were reviewed. I reviewed his electrocardiogram, which shows normal sinus rhythm, no ST changes to suggest an acute coronary syndrome. I reviewed noncontrast CT scan of the brain, which did not show any acute intracranial abnormality. He has leukocytosis with 11,200 white cells of which 84% are neutrophils. He has normocytic anemia with hemoglobin 10.4, and normal platelet count. Sodium is normal. Potassium is decreased at 3.2. Blood urea nitrogen is elevated at 37. Creatinine is elevated at 7.50. Lactic acid is elevated at 9.5. Prolactin level is normal at 15.71. Total bilirubin is mildly elevated at 1.3, LFTs are otherwise unremarkable. Troponin I is in the indeterminate range at 0.204. It was 0.054 on May 31, 2019. Urine toxicology screen is positive for methamphetamines and cannabinoids. Urinalysis is positive for blood, bacteria and sperm, negative for nitrite and leukocyte esterase. ASSESSMENT AND PLAN: Mr. Chilel is a pleasant 39-year-old gentleman who was seen at [facility] on July 22, 2019, His problem list includes: 1. Hypertensive emergency: Mr. Chilel is presenting with hypertensive emergency. He will be admitted to the hospital for further management. He is being started on a Cardene drip, therefore he will be admitted to critical care unit. We will start him on a clonidine 0.2 mg patch. 2. End-stage renal disease, on dialysis. Nephrology Service has been consulted for maintenance dialysis. The patient missed hemodialysis yesterday. 3. Lactic acidosis: The patient has lactic acidosis. This could be secondary to seizure. It does not appear that the seizure was witnessed. Lactic acidosis could be secondary to other causes as well including infection. He is certainly tachycardic, tachypneic and has leukocytosis. We will cover him with empiric antibiotics until the source of infection is ruled out. We will check chest x-ray. We will also order blood cultures. 4. Seizure: Suspected, based on history. Prolactin level is normal. Job ID: [id number]
[2019-07-22] MEDS: Heparin 5,000 UNITS/ML VIAL SC SCH (21:39)
[2019-07-23] MEDS: niCARdipine 50 MG in Sodium Chloride 0.9% 250 ML 230 ML IVPB SCH ×2 (00:04→03:37)
[2019-07-23 05:04] LABS: #Lymphocytes 1.7 thou/uL (1.20-3.40); #Monocytes 0.7 thou/uL (0.11-0.59); #Neutrophils 5.9 thou/uL (1.40-6.50); %Basophils 0.4 % (0.0-1.0); %Eosinophils 0.4 % (0.0-10.0); %Lymphocytes 20.1 % (21.0-51.0); %Monocytes 8.2 % (0.0-10.0); %Neutrophils 70.9 % (42.0-75.0); Hemoglobin 11.3 g/dL (14.0-18.0); Mean Corpuscular HGB CONC 31.6 g/dL (32.0-36.0); Mean Corpuscular Hemoglobin 26.5 pg (27.0-31.0); Mean Corpuscular Volume 83.7 fL (78.0-98.0); Mean Platelet Volume 10.7 fL (7.4-10.4); Platelet Count 146 thou/uL (130-400); RBC Distribution Width 15.6 % (11.5-14.5); Red Blood Cell (RBC) Count 4.26 mill/uL (4.70-6.10); White Blood Cell (WBC) Count 8.3 thou/uL (4.8-10.8)
[2019-07-23] MEDS: Sodium Chloride 0.9% 1,000 ML IV SCH (05:09)
[2019-07-23 05:18] LABS: Anion Gap 21 mmol/L (10-20); BUN (Urea Nitrogen) 39 mg/dL (8.9-20.6); Calc. Creatinine Clearance 15 mL/min (70-130); Calcium 10.5 mg/dL (7.8-10.44); Carbon Dioxide 22 mmol/L (22-29); Chloride 98 mmol/L (98-107); Estimated GFR-MDRD 10; Glucose 84 mg/dL (70-105); Sodium 138 mmol/L (136-145)
[2019-07-23 05:19] VITALS: BMI 24.4
[2019-07-23 05:25] LABS: Potassium 2.8 mmol/L (3.5-5.1)
[2019-07-23] MEDS ORDERED: Potassium Chloride 20 MEQ in Premix Bag 1 BAG IVPB SCH (07:15)
[2019-07-23] MEDS ORDERED: Heparin 10,000 UNITS/ 10 ML VIAL ONE (09:00)
[2019-07-23] MEDS ORDERED: FLU VACC QS2019-20(6MOS UP)/PF 60 MCG/0.5 ML SYRINGE IM ONE (09:00)
[2019-07-23] MEDS ORDERED: levETIRAcetam In NaCl (Iso-Os) 1,000 MG in Premix Bag 1 BAG IVPB SCH (09:00)
[2019-07-23] MEDS ORDERED: Prevnar 13-Val Conj/PF 0.5 ML SYRINGE IM ONE (09:00)
--- NOTE | 2019-07-23 09:11 | CON ---
DATE OF CONSULTATION: 07/23/2019 CONSULTING PHYSICIAN: Hospitalist Service. 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 PLAN: Address blood pressure and the patient should discontinue use of methamphetamines. HISTORY OF PRESENT ILLNESS: Mr. Ruelas is a 39-year-old black man with past history of renal failure. He has skipped dialysis. He apparently had a witnessed seizure. He was brought in with a blood pressure of 300/150. His initial CT scan of the brain was unremarkable. He is put in the intensive care unit. His blood pressure has been brought under control, it is currently 144/67. He is without any complaints of headache, nausea, vomiting, vertigo, chest pain, shortness of breath, lateralized weakness, or numbness. Denies any past history of seizure. His drug screen was positive for marijuana and methamphetamine. PAST MEDICAL HISTORY: Renal failure, hypertension. ALLERGIES: NONE REPORTED. SOCIAL HISTORY: Positive for drug use. FAMILY HISTORY: Unremarkable. REVIEW OF SYSTEMS: Ten-system review of systems is otherwise negative. PHYSICAL EXAMINATION: GENERAL: He is a reasonably healthy-appearing young man, lying in bed, in no acute distress. VITAL SIGNS: Blood pressure 144/67, pulse 90, respirations 23, saturations 100%. HEENT: Pupils are equal. Conjunctivae clear. Oropharynx clear. NECK: Supple. EXTREMITIES: No cyanosis or edema. NEUROLOGIC: He is alert and cooperative. His speech is fluent and clear. Cranial nerves were intact. Motor exam showed equal strength. Sensations intact bilaterally. No abnormal movements were seen. Gait was not tested. LABORATORY DATA: EKG, normal sinus rhythm. CT of the brain was reviewed. SUMMARY: This is a 39-year-old gentleman, who presented with hypertensive urgency with positive drug screen for methamphetamines and secondary seizures. No need for any anticonvulsant therapy. Job ID: [id number]
[2019-07-23] MEDS ORDERED: hydrALAZINE 25 MG TAB PO SCH ×4 (09:15→15:00)
[2019-07-23] MEDS ORDERED: NIFEdipine XL 30 MG TAB PO SCH (09:15)
[2019-07-23] MEDS: Heparin 5,000 UNITS/ML VIAL SC SCH (09:25)
[2019-07-23 09:32] VITALS: BP 168/82
--- NOTE | 2019-07-23 09:48 | PRG ---
DATE OF SERVICE: 07/23/2019 HISTORY OF PRESENT ILLNESS: Mr. 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 The patient missed his dialysis Friday. He also tells me that he stopped taking his BP medications or missed them due to work. He was unable to take his regular BP med. For that reason, he was sent to the ER. He was quite confused and had a very elevated blood pressure. He was started on nicardipine drip and clonidine transdermal. Blood pressure this morning is much better. Our plan is to taper him down on the nicardipine drip and start/resume his p.o. antihypertensive regimen. No new complaints today. No chest pain or shortness of breath. The patient is more awake. REVIEW OF SYSTEMS: No chest pain. No shortness of breath. No nausea. No vomiting. No diarrhea. No constipation. No headache. No diplopia. No productive cough. No fever or chills. No syncopal episode. No dysuria. No urinary frequency. MEDICATIONS: 1. Calcitriol 0.25 mcg tablet daily. 2. Ceftriaxone 1 g IV daily. 3. Clonidine 0.2 mg p.o. b.i.d. 4. Enalaprilat 2.5 mg IV q.6 p.r.n. 5. Hydralazine 100 mg tablet t.i.d. 6. Nicardipine drip-being tapered. 7. Nifedipine 90 mg XL tablet once a day. 8. Status post vancomycin. PAST MEDICAL HISTORY: 1. 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 2. Longstanding hypertension. PAST SURGICAL HISTORY: Status post right ankle surgery, status post cuffed hemodialysis catheter placement. 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 Denies any IV drug use. Status post blood transfusion. Currently, not smoking. No alcohol intake. Education, high school. Please note he mentions smokes marijuana occasionally. He did smoke for the last 17 years, one pack a day, but currently minimal smoking, almost none. FAMILY HISTORY: No family history of ESRD. ALLERGIES: NONE. TRAUMA: Status post right ankle fracture. IMMUNIZATION: Up-to-date. HOSPITALIZATIONS: Please see past medical history. PHYSICAL EXAMINATION: VITAL SIGNS: Blood pressure is noted at 123/74, heart rate 86, respiratory rate 22, temperature is 97.8, and pulse ox 92%. GENERAL: Awake, alert, comfortable, not in distress. SKIN: Adequate turgor. HEENT: Pinkish conjunctivae. Anicteric sclerae. NECK: No neck mass. No carotid bruits. No JVD. CHEST: No deformities. LUNGS: Clear breath sounds. No wheezing. No crackles. HEART: Normal sinus rhythm. No murmurs, gallops, or rubs. ABDOMEN: Globular, soft, nontender. No masses. EXTREMITIES: No edema. No deformities. LABORATORY DATA: July 23, 2019; white count 8.2, hemoglobin 11.3, sodium 138, potassium 2.8, chloride 98, carbon dioxide 22, BUN 39, creatinine 7.63, and calcium 10.5. ASSESSMENT AND PLAN: 1. End-stage renal disease - We will resume hemodialysis for 4 hours on Friday, Friday, and Friday. Fluid removal as tolerated. 2. Mild hypokalemia. KCl 20 mEq IV was given. We will adjust potassium bath with dialysis. 3. Labile hypertension. Resume oral BP medications. 4. We will start tapering nicardipine drip with this patient. 5. Overall agree with current management. Job ID: [id number]
[2019-07-23] MEDS ORDERED: Sodium Chloride 0.9% 1,000 ML IV SCH (12:45)
[2019-07-23] MEDS ORDERED: NIFEdipine XL 90 MG TAB PO SCH (12:45)
[2019-07-23] MEDS ORDERED: cloNIDine 0.2 MG TAB PO SCH ×2 (12:45→21:00)
[2019-07-23 13:46] LABS: HBSAg Index 0.18 S/CO (0-0.99); Hep B Surf Ag Non-Reactive S/CO (NonReactive)
[2019-07-23 14:52] VITALS: TEMP 98.3
--- NOTE | 2019-07-24 03:10 | DIS ---
DATE OF ADMISSION: 07/22/2019 DATE OF DISCHARGE: 07/23/2019 PRIMARY CARE PROVIDER: None. The patient left against medical advice on July 23, 2019. HOSPITAL COURSE: Mr. Chilel is a 39-year-old gentleman, who was admitted to [facility] on July 22, 2019, for hypertensive emergency, lactic acidosis and seizure. Please refer to my history and physical note dated July 22, 2019, for further details. He was seen by Neurology Service. They felt that his seizure was secondary to methamphetamine use and hypertensive urgency. They did not recommend any anticonvulsant therapy. He was also seen by Nephrology Service and underwent hemodialysis. He was treated in the critical care unit with Cardene drip with improvement in his blood pressure. His mentation also improved. On the afternoon of July 23, 2019, the patient decided that he did not wish to stay in the hospital. He left the hospital against medical advice. Job ID: [id number]
[2019-07-24] MEDS ORDERED: Calcitriol 0.25 MCG CAP PO SCH (09:00)
[2019-07-24] MEDS ORDERED: NIFEdipine XL 30 MG TAB PO SCH ×2 (09:00)
== END 2019-07-23 15:50 | disposition left against medical advice (07) | DRG 304 ==
LOC: ERS 14:36 → CCU 16:20
PROVIDERS: ADMIT Internal Medicine; ATTEND Internal Medicine
PROC: 5A1D70Z Performance of Urinary Filtration, Intermittent, Less than 6 Hours Per Day (ICD-10-PCS; principal; 2019-07-21)
DX: I16.1 Hypertensive emergency (principal); N18.6 End stage renal disease; E87.2 Acidosis; G40.909 Epilepsy, unspecified, not intractable, without status epilepticus; I12.0 Hypertensive chronic kidney disease with stage 5 chronic kidney disease or end stage renal disease; E87.6 Hypokalemia; F15.90 Other stimulant use, unspecified, uncomplicated; Z99.2 Dependence on renal dialysis; Z91.15 Patient's noncompliance with renal dialysis
CPT/HCPCS: 36415; 36416; 70450; 71045; 80048; 80053; 80306; 81003; 81015; 82553; 83605; 84146; 84484; 85025; 87040; 87340; 90471; 90670; 93005; 96365; 96366; 96375; G0009; J0360; J0696; J1644; J1953; J2060; J3370; J3480; J3490; J7050

== ENCOUNTER 2019-07-24 17:51 | Emergency (ER) | payer SELFPAY ==
[2019-07-24 18:36] LABS: #Eosinphils 0.1 thou/uL (0.0-0.7); #Monocytes 0.6 thou/uL (0.11-0.59); #Neutrophils 4.7 thou/uL (1.40-6.50); %Basophils 0.3 % (0.0-1.0); %Eosinophils 1.6 % (0.0-10.0); %Lymphocytes 16.1 % (21.0-51.0); %Monocytes 9.6 % (0.0-10.0); %Neutrophils 72.3 % (42.0-75.0); Hemoglobin 9.3 g/dL (14.0-18.0); Mean Corpuscular HGB CONC 33.1 g/dL (32.0-36.0); Mean Corpuscular Hemoglobin 27.8 pg (27.0-31.0); Mean Corpuscular Volume 83.9 fL (78.0-98.0); Platelet Count 179 thou/uL (130-400); Red Blood Cell (RBC) Count 3.34 mill/uL (4.70-6.10); White Blood Cell (WBC) Count 6.5 thou/uL (4.8-10.8)
[2019-07-24] MEDS ORDERED: hydrALAZINE 25 MG TAB ONE (18:44)
[2019-07-24 19:02] LABS: ALT (SGPT) 13 U/L (8-55); AST (SGOT) 14 U/L (5-34); Albumin 4.2 g/dL (3.5-5.0); Alkaline Phosphatase 67 U/L (40-110); Anion Gap 18 mmol/L (10-20); BUN (Urea Nitrogen) 34 mg/dL (8.9-20.6); Bilirubin, Total 0.4 mg/dL (0.2-1.2); Calc. Creatinine Clearance 0 mL/min (70-130); Calcium 9.5 mg/dL (7.8-10.44); Carbon Dioxide 25 mmol/L (22-29); Chloride 96 mmol/L (98-107); Estimated GFR-MDRD 10; Globulin 3.1 g/dL (2.4-3.5); Glucose 82 mg/dL (70-105); Lipase 51 U/L (8-78); Protein, Total 7.3 g/dL (6.0-8.3); Sodium 136 mmol/L (136-145)
== END 2019-07-24 20:11 | disposition home or self-care (01) ==
LOC: ERS 17:51
DX: E87.6 Hypokalemia (principal); I10 Essential (primary) hypertension; F17.210 Nicotine dependence, cigarettes, uncomplicated; Z79.899 Other long term (current) drug therapy
CPT/HCPCS: 80053; 83690; 85025; 99284

== ENCOUNTER 2019-08-10 00:09 | Emergency (ER) | payer OTHER, SELFPAY ==
[2019-08-10] MEDS ORDERED: Acetaminophen 500 MG TAB ONE (01:06)
[2019-08-10 01:34] LABS: ALT (SGPT) 17 U/L (8-55); AST (SGOT) 27 U/L (5-34); Albumin 3.9 g/dL (3.5-5.0); Alkaline Phosphatase 53 U/L (40-110); Anion Gap 18 mmol/L (10-20); BUN (Urea Nitrogen) 39 mg/dL (8.9-20.6); Bilirubin, Total 0.6 mg/dL (0.2-1.2); Calc. Creatinine Clearance 0 mL/min (70-130); Calcium 9.1 mg/dL (7.8-10.44); Carbon Dioxide 27 mmol/L (22-29); Chloride 95 mmol/L (98-107); Estimated GFR-MDRD 10; Globulin 3.2 g/dL (2.4-3.5); Glucose 95 mg/dL (70-105); Protein, Total 7.1 g/dL (6.0-8.3); Sodium 136 mmol/L (136-145)
[2019-08-10 01:35] LABS: Hemoglobin 8.2 g/dL (14.0-18.0); Mean Corpuscular HGB CONC 33.8 g/dL (32.0-36.0); Mean Corpuscular Volume 85.7 fL (78.0-98.0); RBC Distribution Width 17.7 % (11.5-14.5); Red Blood Cell (RBC) Count 2.85 mill/uL (4.70-6.10)
[2019-08-10 01:54] LABS: #Lymphocytes 0.4 thou/uL (1.20-3.40); #Monocytes 0.7 thou/uL (0.11-0.59); #Neutrophils 6.4 thou/uL (1.40-6.50); %Basophils 0.4 % (0.0-1.0); %Eosinophils 0.2 % (0.0-10.0); %Lymphocytes 5.4 % (21.0-51.0); %Monocytes 9.6 % (0.0-10.0); %Neutrophils 84.4 % (42.0-75.0); Anisocytosis SLIGHT = 6-15 cells (100X) (0-5/hpf); MDiff Complete? YES; Platelet Count 147 thou/uL (130-400); Platelet Morphology Comment Appears Adequate; White Blood Cell (WBC) Count 7.6 thou/uL (4.8-10.8)
[2019-08-10 01:58] LABS: Bacteria/HPF None Seen HPF (None Seen); Bilirubin Negative (Negative); Blood, Urine Negative (Negative); Clarity Clear (Clear); Glucose, Urine (Dipstick) Normal (Negative); Leukocyte Negative Leu/uL (Negative); Nitrite Negative (Negative); Protein, Urine (Dipstick) 300 mg/dL (Neg-Trace); RBC/HPF 0-3 HPF (0-3); Squamous Epithelial 0-3 HPF (0-3); Urobilinogen Normal mg/dL (Less than 2)
[2019-08-10] MEDS ORDERED: diphenhydrAMINE 50 MG CAP ONE (02:44)
--- NOTE | 2019-08-10 07:25 | RAD ---
CHEST 1 VIEW: INDICATION: History of dialysis yesterday with chest pain, congestion, shortness of breath, and fever that starte d today. FINDINGS: There is moderate cardiomegaly which is stable to the comparison dated 07/22/2019. There is no dense airspace opacity within the right lower lobe suspicious for pneumonia. The left lung is clear. No p leural effusion or pneumothorax is evident. Right IJ dialysis catheter is stable. Osseous structure s are similar-appearing. IMPRESSION: Right lower lobe pneumonia. Recommend radiographic followup to resolution. POS: BH
== END 2019-08-10 02:51 | disposition home or self-care (01) ==
LOC: ERS 00:09
DX: J10.1 Influenza due to other identified influenza virus with other respiratory manifestations (principal); I10 Essential (primary) hypertension; F17.210 Nicotine dependence, cigarettes, uncomplicated; Z79.899 Other long term (current) drug therapy
CPT/HCPCS: 36415; 71045; 80053; 81003; 81015; 83605; 85025; 87040; 87804; Q0163

== ENCOUNTER 2019-08-10 17:09 | Inpatient (IN) | payer OTHER, SELFPAY ==
[2019-08-10] MEDS ORDERED: Piperacillin/Tazobactam 2.25 GM VIAL ONE (17:43)
[2019-08-10 17:58] LABS: #Lymphocytes 0.4 thou/uL (1.20-3.40); #Monocytes 0.5 thou/uL (0.11-0.59); #Neutrophils 5.2 thou/uL (1.40-6.50); %Basophils 0.2 % (0.0-1.0); %Eosinophils 0.1 % (0.0-10.0); %Lymphocytes 7.2 % (21.0-51.0); %Monocytes 8.2 % (0.0-10.0); %Neutrophils 84.3 % (42.0-75.0); Hemoglobin 8.2 g/dL (14.0-18.0); Mean Corpuscular HGB CONC 32.7 g/dL (32.0-36.0); Mean Corpuscular Hemoglobin 28.2 pg (27.0-31.0); Mean Corpuscular Volume 86.1 fL (78.0-98.0); Mean Platelet Volume 10.3 fL (7.4-10.4); Platelet Count 121 thou/uL (130-400); Red Blood Cell (RBC) Count 2.91 mill/uL (4.70-6.10); White Blood Cell (WBC) Count 6.1 thou/uL (4.8-10.8)
[2019-08-10] MEDS ORDERED: Vancomycin 1.5 GRAM/300 ML BAG 1.5 GM in Premix Bag 1 BAG IVPB SCH (18:00)
[2019-08-10] MEDS ORDERED: Acetaminophen 500 MG TAB ONE (18:05)
[2019-08-10 18:21] LABS: ALT (SGPT) 16 U/L (8-55); AST (SGOT) 26 U/L (5-34); Alkaline Phosphatase 57 U/L (40-110); Anion Gap 17 mmol/L (10-20); BUN (Urea Nitrogen) 54 mg/dL (8.9-20.6); Bilirubin, Total 0.8 mg/dL (0.2-1.2); Calc. Creatinine Clearance 0 mL/min (70-130); Calcium 9.4 mg/dL (7.8-10.44); Carbon Dioxide 29 mmol/L (22-29); Chloride 94 mmol/L (98-107); Estimated GFR-MDRD 8; Glucose 93 mg/dL (70-105); Potassium 3.7 mmol/L (3.5-5.1); Sodium 136 mmol/L (136-145)
--- NOTE | 2019-08-10 18:27 | RAD ---
PORTABLE CHEST ONE VIEW 08/10/19 at 5:25 p.m. HISTORY: Diagnosed with flu yesterday. Patient was supposed to have had dialysis today. FINDINGS: Comparison is made with exam of 12:43 a.m. from same date. Worsening of alveolar opacities has occurred in the right lower lobe. The right sided dialysis cathet er remains in place. Heart size is normal. No pneumothoraces or large pleural effusions are seen. IMPRESSION: Interval worsening since last exam. POS: CHANDNI
[2019-08-10] MEDS ORDERED: cloNIDine 0.1 MG TAB ONE (19:02)
[2019-08-10 19:11] LABS: Troponin I 0.531 ng/mL (< 0.028)
[2019-08-10] MEDS ORDERED: hydrALAZINE 25 MG TAB PO SCH (19:15)
[2019-08-10] MEDS ORDERED: NIFEdipine XL 30 MG TAB PO SCH (19:30)
--- NOTE | 2019-08-10 21:43 | PDOC.HHP ---
Hospitalist HPI - History of Present Illness shortness of breath History of Present Illness: This is 39 year old male with history of ESRD secondary to hypertension who presented with shortness of breath.The patient states he has been short of breath since Friday and it has progressively gotten worst. He has it on exertion and at rest. He doesn't typically wear oxygen at home. He was seen in the ER earlier at midnight and was found to have a temp of 102 and BP of > 300 systolic. He tested positive for flu. He was given benadryl and tylenol and discharged home on tamiflu because patient wanted to go home to sleep. He subsequently went to get dialysis this morning and was found to be hypoxic to the 's and was told he needed to go back to the ER. He has a dry cough and diffuse body aches. He denies chest pain. He denies chills, runny nose or sore throat. He has no abdominal pain, nausea or vomiting. The patient states that he feels tired and hasn't been able to get any sleep and wants to sleep. Normally he gets dialysis M, W, , but due to they were going to change it to Friday, , Friday. THe patient reports taking his tamiflu this morning but unsure of other home medications. ED Course: The patient was febrile to 102. He was tachycardic to 102 and hypoxic to 89% on room air. THe patient was placed on 2L nasal cannula. He also had a blood pressure > 230 systolic. He was given hydralazine and nifedipine. The patient had a Chest X ray which they felt showed RLL pneumonia. He was given vancomycin and levaquin and being admitted for possible sepsis rule out. Hospitalist ROS - Review of Systems Constitutional: denies: fever, chills Eyes: denies: vision change ENT: denies: ear pain, ear discharge, nose congestion Respiratory: reports: dry, shortness of breath Cardiovascular: denies: chest pain, palpitations, orthopnea Gastrointestinal: denies: nausea, vomiting, abdominal pain Genitourinary: denies: dysuria, frequency, incontinence Musculoskeletal: denies: neck pain, shoulder pain Skin: denies: rash, lesions Hospitalist History - Past Medical History Cardiac: reports: Other (moderate MR) Musculoskeletal: reports: no pertinent history Rheumatologic: reports: no pertinent history Infectious Disease: reports: no pertinent history ENT: reports: no pertinent history Renal/: reports: Chronic renal insuff Other Medical History: ESRD secondary to hypertension - Past Surgical History Other Surgical History: Right IJ hemodialysis catheter Right ankle surgery - Family History Other Family History: no family history of renal disease - Social History Smoking Status: Current every day smoker (1/2 pack a day) Alcohol: reports: Occassional Drugs: reports: none Living Situation: With Family Domestic Violence: Negative - Exam General Appearance: NAD, ill appearing General - other findings: struggling to breathe using pursed lips some Eye: PERRL, anicteric sclera ENT: normocephalic atraumatic, no oropharyngeal lesions Neck: supple, symmetric, no JVD Heart: RRR, no murmur, no gallops, no rubs Respiratory - other findings: diminished breath sounds at the bases Gastrointestinal: soft, non-tender, non-distended Extremities: no cyanosis, no clubbing, no edema Skin: normal turgor, no lesions, no rashes Neurological: cranial nerve grossly intact Neurological - other findings: intermittently drowsy Musculoskeletal: normal tone, normal strength, no muscle wasting Psychiatric: normal affect, normal behavior, A&O x 3, oriented to place Hospitalist Results - Labs Result Diagrams: 08/10/19 17:43 08/10/19 17:43 Lab results: WBC 6.1 thou/uL (4.8-10.8) 08/10/19 17:43 Hgb 8.2 g/dL (14.0-18.0) L 08/10/19 17:43 Hct 25.0 % (42.0-52.0) L 08/10/19 17:43 MCV 86.1 fL (78.0-98.0) 08/10/19 17:43 Plt Count 121 thou/uL (130-400) L 08/10/19 17:43 Neutrophils % 84.3 % (42.0-75.0) H 08/10/19 17:43 Sodium 136 mmol/L (136-145) 08/10/19 17:43 Potassium 3.7 mmol/L (3.5-5.1) 08/10/19 17:43 Chloride 94 mmol/L (98-107) L 08/10/19 17:43 Carbon Dioxide 29 mmol/L (22-29) 08/10/19 17:43 BUN 54 mg/dL (8.9-20.6) H 08/10/19 17:43 Creatinine 8.90 mg/dL (0.7-1.3) H 08/10/19 17:43 Glucose 93 mg/dL (70-105) 08/10/19 17:43 Lactic Acid 1.8 mmol/L (0.5-2.2) 08/10/19 17:43 Calcium 9.4 mg/dL (7.8-10.44) 08/10/19 17:43 Total Bilirubin 0.8 mg/dL (0.2-1.2) 08/10/19 17:43 AST 26 U/L (5-34) 08/10/19 17:43 ALT 16 U/L (8-55) 08/10/19 17:43 Alkaline Phosphatase 57 U/L (40-110) 08/10/19 17:43 Troponin I 0.531 ng/mL (< 0.028) H* 08/10/19 18:25 Serum Total Protein 7.0 g/dL (6.0-8.3) 08/10/19 17:43 Albumin 4.0 g/dL (3.5-5.0) 08/10/19 17:43 - EKG Interpretation EKG: sinus tachycardia. Non-specific T wave abnormality, possible mild elevation in V3 and V4 Hospitalist H&P A/P - Plan Plan: CHest X ray: worsening of alveolar opacities in RLL This is a 39 year old male with history of ESRD who presented with worsening shortness of breath, fevers, myalgias, admitted for acute hypoxic resp failure #Sepsis possibly secondary to pneumonia #Acute hypoxic respiratory failure -possibly from pneumonia vs NSTEMI - had fever+ tachycardia + hypoxia in ER - given IV vanc and levaquin in ER, will continue and add IV cefepime - blood cultures x 2, sputum cultures, will check ABG since patient appears to have some pursed lip breathing - hold off on fluids due to significantly elevated BP and missing dialysis this afternoon - troponin elevated at 0.5, EKG shows some possibly mild elevation V3 and V4. Will continue to trend and obtain ECHO. No chest pain at this time, however if troponin continues to trend upwards will consult cardiology. Will give a dose of aspirin 81 mg and statin 40 mg tonight empirically. Check lipid panel in AM #Influenza A - continue tamiflu 75 mg daily #Hypertensive Urgency #ESRD - resumed home medications, clonidine and nifedipine and hydralazine - nephrology Dr. Zapata consulted for dialysis #Anemia - HB 9 - likely anemia of chronic disease. Had normal ferritin in May - will trend in AM Code status: full code DVt prophylaxis: heparin SC
[2019-08-10] MEDS ORDERED: Cefepime 1 GM in Sodium Chloride 0.9% 100 ML IVPB SCH (22:00)
[2019-08-10] MEDS ORDERED: hydrALAZINE 20 MG/ML VIAL ONE (22:02)
[2019-08-10] MEDS ORDERED: Morphine 4 MG/ML VIAL ONE (22:02)
[2019-08-10] MEDS ORDERED: Ondansetron PF 4 MG/2 ML Vial ONE (22:09)
[2019-08-10] MEDS ORDERED: Aspirin 81 mg Enteric Coated Tablet PO SCH (22:30)
[2019-08-10] MEDS ORDERED: Midazolam HCl 5 mg/ml Vial ONE (22:59)
[2019-08-10] MEDS ORDERED: Vancomycin HCl 500 MG in Sodium Chloride 0.9% 100 ML IVPB SCH (23:00)
[2019-08-10] MEDS ORDERED: HOLD VANCOMYCIN FOR LEVEL >20 FS SCH (23:00)
[2019-08-10] MEDS ORDERED: Rocuronium Bromide 10 MG/ML (10ML VIAL) ONE (23:00)
[2019-08-10] MEDS ORDERED: Vancomycin HCl 750 MG in Sodium Chloride 0.9% 250 ML 250 ML IVPB SCH (23:00)
[2019-08-10] MEDS ORDERED: niCARdipine 25 MG in Sodium Chloride 0.9% 250 ML 240 ML IVPB SCH (23:00)
[2019-08-10] MEDS ORDERED: Propofol 1,000 MG/100 ML VIAL IV ONE (23:00)
[2019-08-10] MEDS ORDERED: Vancomycin HCl 1 GM in Premix Bag 1 BAG IVPB SCH (23:00)
[2019-08-10] MEDS ORDERED: Vancomycin HCl 1.25 GM in Sodium Chloride 0.9% 250 ML 250 ML IVPB SCH (23:00)
[2019-08-10] MEDS ORDERED: Rocuronium Bromide 50 MG/5 ML VIAL ONE (23:02)
[2019-08-10 23:11] LABS: CKMB 0.8 ng/mL (0-6.6)
[2019-08-10] MEDS ORDERED: fentaNYL Citrate/PF 2,000 MCG in Sodium Chloride 0.9% 60 ML IV SCH (23:14)
--- NOTE | 2019-08-10 23:14 | RAD ---
PORTABLE CHEST ONE VIEW: 08/10/19 at 10:57 p.m. HISTORY: Dyspnea. FINDINGS/IMPRESSION: There has been interval worsening of the alveolar opacities in the right lung since the last exam of 5:25 p.m. from the same day. There is pulmonary vascular congestion. POS: OFF
[2019-08-10] MEDS ORDERED: Labetalol HCl 100 MG/20 ML VIAL ONE (23:26)
[2019-08-10 23:35] LABS: Actual Bicarbonate (HCO3a) 23.9 mEq/L (22-28); Analyzer IN Cardio ER; Base Excess (BEa) -2.4 mEq/L (-2.0 to +3.0); CO2 Tension 48.1 mmHg (35.0-45.0); Calcium, Ionized 1.08 mmol/L (1.12-1.30); Carboxyhemoglobin (COHb) 0.1 gm% (0.0-3.0); Hemoglobin (Hb) 9.5 g/dL (14.0-18.0); O2 Tension (PaO2) 194.8 mmHg (80.0-100.0); Potassium - ABG Lab 3.99 mmol/L (3.70-5.30); pH, Arterial 7.31 (7.35-7.45)
[2019-08-10 23:36] LABS: Puncture Site LBA
[2019-08-10 23:37] LABS: ALV-art Gradient 458.075 (0-20)
--- NOTE | 2019-08-10 23:38 | RAD ---
PORTABLE CHEST ONE VIEW: 08/10/19 at 11 p.m. HISTORY: Respiratory failure. FINDINGS/IMPRESSION: There has been interval placement of an endotracheal tube with tip at the level of the clavicular hea ds and a nasogastric tube which had been placed into the stomach since earlier exam of 10:57 p.m. fro m the same day. No pneumothoraces are seen. The remainder of the exam is otherwise stable. POS: OFF
[2019-08-11] MEDS ORDERED: Acetaminophen 650 MG Suppository ONE
[2019-08-11] MEDS ORDERED: SYSTANE 3.5 GM TUBE EA EYE PRN (00:16)
[2019-08-11] MEDS ORDERED: Acetaminophen 650 MG Suppository PR PRN (00:16)
[2019-08-11] MEDS ORDERED: Acetaminophen 650 MG/20.3 ML UDCUP PO PRN (00:16)
[2019-08-11 01:31] VITALS: BMI 26.6
[2019-08-11 02:28] LABS: #Basophils 0.1 thou/uL (0.0-0.2); #Lymphocytes 0.4 thou/uL (1.20-3.40); #Monocytes 0.4 thou/uL (0.11-0.59); #Neutrophils 8.2 thou/uL (1.40-6.50); %Basophils 0.6 % (0.0-1.0); %Lymphocytes 4.7 % (21.0-51.0); %Monocytes 3.9 % (0.0-10.0); %Neutrophils 90.9 % (42.0-75.0); Hemoglobin 8.5 g/dL (14.0-18.0); Mean Corpuscular HGB CONC 32.6 g/dL (32.0-36.0); Mean Corpuscular Hemoglobin 28.4 pg (27.0-31.0); Mean Corpuscular Volume 87.1 fL (78.0-98.0); Mean Platelet Volume 9.8 fL (7.4-10.4); Platelet Count 105 thou/uL (130-400); RBC Distribution Width 16.8 % (11.5-14.5)
[2019-08-11 02:56] LABS: Anion Gap 16 mmol/L (10-20); BUN (Urea Nitrogen) 65 mg/dL (8.9-20.6); Calc. Creatinine Clearance 13 mL/min (70-130); Calcium 8.5 mg/dL (7.8-10.44); Carbon Dioxide 28 mmol/L (22-29); Cardiac Risk 5.4 (Less than 4.5); Chloride 96 mmol/L (98-107); Cholesterol 177 mg/dl (< 200 Desired); Estimated GFR-MDRD 8; Glucose 134 mg/dL (70-105); HDL Cholesterol 33 mg/dL (>60 Neg Risk); LDL Cholesterol, Calculated 108 mg/dL; Potassium 4.3 mmol/L (3.5-5.1); Sodium 136 mmol/L (136-145); Triglycerides 178 mg/dL (Less than 150)
[2019-08-11 03:28] LABS: Vancomycin, Trough 30.9 ug/mL
[2019-08-11 03:39] LABS: Amphetamine Not Detected (NotDetected); Barbiturates Screen Not Detected (NotDetected); Benzodiazepine Screen Not Detected (NotDetected); Cocaine Metabolite Screen Not Detected (NotDetected); Medtox Control Line Valid? VALID (VALID); Medtox Reader # READER 4; Methadone Not Detected (NotDetected); Methamphetamine Not Detected (NotDetected); Opiate Screen Detected (NotDetected); Oxycodone Screen Not Detected (NotDetected); Phencyclidine (PCP) Not Detected (NotDetected); THC/Cannabinoid Screen Detected (NotDetected); Tricyclic Screen Not Detected (NotDetected)
[2019-08-11] MEDS ORDERED: methylPREDNISolone Sod Succ 40 MG VIAL IVP SCH ×2 (05:00→05:15)
[2019-08-11] MEDS ORDERED: Bacteriostatic Water 30 ML VIAL FS PRN (05:08)
[2019-08-11] MEDS ORDERED: Morphine 2 MG/ML SYRINGE SLOW IVP PRN (05:27)
[2019-08-11] MEDS ORDERED: Propofol 1,000 MG/100 ML VIAL IV PRN (05:27)
[2019-08-11] MEDS ORDERED: Lorazepam 2 MG/ML VIAL SLOW IVP PRN (05:27)
[2019-08-11] MEDS ORDERED: Fentanyl BOLUS 250 ML IVPB PRN (05:27)
[2019-08-11] MEDS ORDERED: Propofol BOLUS 1,000 MG/100 ML VIAL IV PRN (05:27)
--- NOTE | 2019-08-11 05:39 | CON ---
DATE OF CONSULTATION: 08/11/2019 SERVICE: Pulmonary Medicine. REASON FOR CONSULTATION: ICU patient. HISTORY OF PRESENT ILLNESS: The patient is a 39-year-old male with past medical history significant for end-stage renal disease. His dialysis schedule is being adjusted because of the holiday, but that being said, he missed dialysis, because he presented to the emergency department not feeling very good. He was diagnosed with influenza, and subsequently sent home. He returned to the emergency department, because of increasing difficulty breathing. Because of his difficulty breathing, he was ultimately intubated. He was tucked into the ICU overnight. Emergent dialysis has been initiated and pulling off as much fluid as possible. His blood pressures are extraordinarily elevated. He cannot provide me any additional elements of the history at this point. He is currently intubated and sedated in the ICU. PAST MEDICAL HISTORY: 1. End-stage renal disease. 2. Hypertension. 3. Mitral regurgitation, moderate. PAST SURGICAL HISTORY: 1. Right IJ hemodialysis catheter. 2. Right ankle surgery. 3. Fistula placement in the right wrist. FAMILY HISTORY: Noncontributory. SOCIAL HISTORY: He currently smokes half pack on a daily basis and has greater than 10 pack year history of smoking. Denies any alcohol or illicit drugs. ALLERGIES: NO KNOWN DRUG ALLERGIES. MEDICATIONS: List of his inpatient medications was reviewed and modified. REVIEW OF SYSTEMS: This cannot be obtained as the patient is currently intubated and sedated. PHYSICAL EXAMINATION: VITAL SIGNS: T-max of 101.5, pulse 87, blood pressure 132/79, respirations 16, saturation 96%, currently on 41% FiO2 and a PEEP of 7. GENERAL: The patient is intubated and sedated. HEENT: Normocephalic and atraumatic. Sclerae white. Conjunctivae pink. Oral mucosa is moist without lesions. LUNGS: Reduced air entry. There is extremely prolonged expiratory phase. Wheezing and rhonchi both present. HEART: Normal rate. Regular. ABDOMEN: Soft, nontender, nondistended. Bowel sounds are positive. MUSCULOSKELETAL: No cyanosis or clubbing. There is no pitting in the bilateral lower extremities. NEUROLOGIC: Grossly nonfocal. LABORATORY DATA: WBC 9.0, hemoglobin 8.5, platelets 105,000. pH 7.31, pCO2 48, pO2 194, corresponding to a saturation of 99%. At this time, he is on 100% FiO2. Troponin is up trending to 0.7, creatinine 9.43, BUN 65. Basic metabolic profile is otherwise unremarkable. Liver function studies unremarkable. Cortisol level is 17.8, lactate 1.8. Urinalysis is positive for opiates, cannabinoids. Random vancomycin level is 30. IMAGING: Chest x-ray demonstrates endotracheal tube with the tip 6 cm above the level of the helen. There is a dialysis catheter in place. Noncardiogenic pulmonary edema is appreciated with infiltrates in the right lower lobe. No obvious pleural effusions are identified. Cephalization is present. The cardiac silhouette is quite enlarged and consistent with cardiomegaly despite the fact this is an AP film. ASSESSMENT: 1. Acute hypoxic respiratory failure. 2. Hypertensive emergency. 3. Acute bronchitis secondary to influenza A. 4. End-stage renal disease. DISCUSSION AND PLAN: The patient is on emergent dialysis. We are pulling off as much fluid as possible. Hopefully, we will also be able to clean his . Once this is done, we will still start weaning PEEP and FiO2. If he gets down to minimal requirements, spontaneous breathing trial can be tried later today and he can be considered for extubation. That being said, he has severe expiratory airflow limitation. We are going to continue our nebulized medications. I will add steroids to his routine. Procalcitonin will be checked. If positive, I would encourage discontinuing all antibiotics. Pulmonary/Critical Care will continue to follow along. Job ID: [id number]
[2019-08-11 06:35] LABS: Hep B Surf Ag NonReactive S/CO (NonReactive)
[2019-08-11 06:36] LABS: HBSAg Index 0.11 S/CO (0-0.99)
[2019-08-11] MEDS ORDERED: Aspirin 81 mg Enteric Coated Tablet PO SCH (07:45)
[2019-08-11] MEDS ORDERED: VANCOMYCIN IVPB SCH (09:00)
[2019-08-11] MEDS ORDERED: Oseltamivir 75 MG CAP PO SCH (09:00)
[2019-08-11] MEDS ORDERED: NIFEdipine XL 30 MG TAB PO SCH (09:00)
--- NOTE | 2019-08-11 09:13 | CON ---
DATE OF CONSULTATION: HISTORY OF PRESENT ILLNESS: Mr. Chilel was admitted to the hospital with respiratory failure and uncontrolled hypertension , requiring intubation. He is now extubated. The patient has a history of severe hypertension and noncompliance with medications. He said he stopped taking his blood pressure medicines a few days prior to admission. He says at least 3 days because he just "felt sick." He says his blood pressure was still high even despite his medicines. The medicines that he mention were nifedipine, hydralazine, and clonidine. PAST HISTORY: 1. History of severe hypertension. 2. Hypertensive heart disease. 3. Noncompliance. 4. End-stage renal disease. REVIEW OF SYSTEMS: CONSTITUTIONAL: Positive for fever. VISION: No changes. HEARING: No changes. PULMONARY: With some pulmonary edema last night. CARDIAC: No chest pain. GASTROINTESTINAL: No nausea, vomiting, or diarrhea. SKIN: No rashes. PHYSICAL EXAMINATION: VITAL SIGNS: The blood pressure was extremely high in the emergency room 230/130-140 and blood pressure now is 150/80. Pulse 100. EYES: Sclerae are nonicteric. MOUTH: Mucous membranes moist. NECK: Supple. No lymphadenopathy. LUNGS: Clear. CARDIAC: Normal S1 and normal S2. There is a soft systolic murmur at the left lower sternal border. ABDOMEN: Soft and nontender. EXTREMITIES: There is no edema. ASSESSMENT: 1. End-stage renal disease. 2. Hypertensive heart disease. 3. Noncompliance. PLAN: 1. Recommend resuming clonidine as being done. 2. Hydralazine as being done. 3. Nifedipine. 4. Beta osman if needed. 5. Dr. Stern will be seeing the patient in the next few days. Job ID: [id number]
[2019-08-11] MEDS ORDERED: EPOETIN ALFA-EPBX (ESRD) 4,000 UNIT/ML VIAL SC SCH (09:15)
[2019-08-11] MEDS: Calcitriol 0.25 MCG CAP PO SCH (09:36)
[2019-08-11] MEDS: cloNIDine 0.2 MG TAB PO SCH ×2 (09:48→20:31)
[2019-08-11] MEDS: NIFEdipine XL 60 MG TAB PO SCH (09:49)
[2019-08-11] MEDS: hydrALAZINE 25 MG TAB PO SCH ×3 (09:49→20:32)
[2019-08-11] MEDS: Oseltamivir 6 MG/ML ORAL SUSP PO SCH (09:50)
[2019-08-11] MEDS: Famotidine/PF 20 mg/2ml Vial SLOW IVP SCH (09:50)
[2019-08-11] MEDS: Cefepime 0.5 GM, Admixture Fee 1 EACH in Sodium Chloride 0.9% 100 ML IVPB SCH (09:50)
[2019-08-11] MEDS ORDERED: Acetaminophen 325 MG TAB PO PRN (09:59)
--- NOTE | 2019-08-11 10:00 | PRG ---
DATE OF SERVICE: 08/11/2019 SUBJECTIVE: Mr. Chilel is a 39-year-old black male, who was admitted due to generalized malaise and shortness of breath. He was found to be in CHF. He was also found to be having pneumonia. He underwent emergent hemodialysis last night. He had to be intubated due to the respiratory distress. He is currently extubated and feeling better. He does complain of some tingling sensation of the lower extremities. He denies any current chest pain or shortness of breath. OBJECTIVE: VITAL SIGNS: Blood pressure is noted at 156/86, heart rate 96, respiratory rate 23, and pulse ox 99%. GENERAL: Noted to be awake, alert, anxious, not in distress. SKIN: Adequate turgor. HEENT: Shows slightly pale conjunctivae. Anicteric sclerae. NECK: No neck mass. No carotid bruits. No JVD. CHEST: No deformities. LUNGS: Decreased breath sounds. HEART: Normal sinus rhythm. No murmurs, gallops, or rubs. ABDOMEN: Globular, soft, and nontender. No masses. EXTREMITIES: No edema. No deformities. NEUROLOGICAL: Awake and oriented to 3 spheres. No tremors. No asterixis. MEDICATIONS: Medications of August 11, 2019, were reviewed. LABORATORY DATA: Laboratories of August 11, 2019; white count 9 and hemoglobin 8.5. Sodium 136, potassium 4.3, chloride 96, carbon dioxide 28, BUN 65, creatinine 9.43, glucose 134, and calcium 8.5. Troponin I 0.0742, CK-MB 0.8. August 10, 2019, chest x-ray showed increased lung markings/CHF with a ? of pneumonia. ASSESSMENT AND PLAN: 1. Acute respiratory failure, much improved. The patient was transiently intubated. He underwent hemodialysis with fluid removal. 2. End-stage renal disease, stable. We will continue current 3 times a week hemodialysis with this patient. We are maxing out fluid removal with the patient. 3. Labile hypertension. This is a reflection of the noncompliance. The patient tells me, he stopped taking his BP medications when he was feeling unwell a few days before. 4. Anemia. Resume back Epogen at 7500 units subcu every week. Job ID: [id number]
--- NOTE | 2019-08-11 11:26 | PDOC.HOSPP ---
- Subjective Encounter Date: 08/11/19 Encounter Time: 11:25 Subjective: The patient is doing much better today. Overnight was intubated and underwent emergent dialysis with 3L fluid removal finished at 5 am . He has fever today, giving tylenol. HE has dry cough. He says he is unable to feel his legs much. He denies chest pain. - Objective Vital Signs & Weight: Vital Signs (12 hours) Temp Pulse Resp BP Pulse Ox 08/11/19 09:49 98 169/99 H 08/11/19 09:48 169/99 H 08/11/19 07:15 95 08/11/19 07:00 101.4 F H 08/11/19 06:36 108 H 16 92 L 08/11/19 06:32 109 H 122/84 08/11/19 06:30 15 08/11/19 06:00 100.0 F H 20 08/11/19 04:00 98.8 F 21 H 08/11/19 03:22 95 08/11/19 02:45 92 139/82 08/11/19 02:10 92 139/82 08/11/19 02:00 16 08/11/19 01:00 101.4 F H 16 08/11/19 00:16 94 201/110 H Weight Weight 185 lb 13.595 oz Most Recent Monitor Data Heart Rate from ECG 87 NIBP 134/73 NIBP BP-Mean 93 Respiration from ECG 17 SpO2 97 I&O: 08/10/19 08/11/19 08/12/19 06:59 06:59 06:59 Intake Total 1137 Output Total 100 140 Balance -100 997 Result Diagrams: 08/11/19 01:52 08/11/19 01:52 Hospitalist ROS - Review of Systems Constitutional: reports: fever. denies: chills Respiratory: reports: cough Cardiovascular: denies: chest pain, palpitations, orthopnea - Medication Medications: Active Medications Generic Name Dose Route Start Last Admin Trade Name Freq PRN Reason Stop Dose Admin Acetaminophen 650 mg 08/11/19 09:59 08/11/19 10:20 Tylenol PO 650 mg Q6H PRN Administration Fever>101/(Mi/Mod/Sev) Pain Albuterol/Ipratropium 3 ml 08/11/19 01:00 08/11/19 06:36 Duoneb NEB 3 ml [id number] STEVEN Administration Calcitriol 0.25 mcg 08/11/19 09:00 08/11/19 09:36 Rocaltrol PO 0.25 mcg DAILY STEVEN Administration Clonidine 0.2 mg 08/11/19 09:00 08/11/19 09:48 Catapres PO 0.2 mg BID STEVEN Administration Epoetin Daniel-epbx 7,500 unit 08/11/19 09:15 08/11/19 09:58 Retacrit SC 7,500 unit Q7D STEVEN Administration Famotidine 20 mg 08/11/19 09:00 08/11/19 09:50 Pepcid SLOW IVP 20 mg DAILY STEVEN Administration Hydralazine HCl 25 mg 08/11/19 09:00 08/11/19 09:49 Apresoline PO 25 mg TID STEVEN Administration Cefepime HCl 0.5 gm/ 100 mls @ 200 mls/hr 08/11/19 09:00 08/11/19 09:50 Miscellaneous Medication 1 IVPB 100 mls each/ Sodium Chloride 0900 STEVEN Administration Nifedipine 60 mg 08/11/19 09:00 08/11/19 09:49 Procardia Xl PO 60 mg DAILY STEVEN Administration Oseltamivir Phosphate 30 mg 08/11/19 09:00 08/11/19 09:50 Tamiflu PO 08/15/19 09:01 30 mg DAILY STEVEN Administration - Exam General Appearance: NAD, awake alert General - other findings: on 2L oxygen Eye: PERRL, anicteric sclera ENT: normocephalic atraumatic, no oropharyngeal lesions Neck: supple, symmetric, no JVD, no thyromegaly Heart: RRR, no murmur, no gallops, no rubs Respiratory: CTAB, no wheezes, no rales Gastrointestinal: soft, non-tender, non-distended Extremities: no cyanosis, no clubbing, no edema Skin: normal turgor, no lesions, no rashes Hosp A/P - Plan This is a 39 year old male with history of ESRD who presented with worsening shortness of breath, fevers, myalgias, admitted for acute hypoxic resp failure #Sepsis possibly secondary to pneumonia #Acute hypoxic respiratory failure from pneumonia vs pulmonary edema from missed dialysis requiring intubation - s/p extubation #Hypertensive emergency #ESRD - had fever+ tachycardia + hypoxia in ER, chest X ray showing possible pneumonia. On IV vancomycin, levaquin and cefepime, continue for now. Procalcitonin 8.5, continue antibiotics - blood cultures x 2, sputum cultures pending - was hypertensive to > 200 systolic overnight, was on nicardipine drip. S/p emergent dialysis, now extubated and weaned to nasal cannula. Continue to titrate O2 sat to > 92%. He received his home clonidine, nifedipine and hydralazine this am and is now off the nicardipine drip - troponin had increased from 0.5 to 0.7, EKG showed some mild nonspecific ST changes. Recheck troponin - continue aspirin and statin, cardiology is following. LDL is 108 #Influenza A - continue tamiflu 75 mg daily #Anemia - HB 9 - likely anemia of chronic disease. Had normal ferritin in May - will trend in AM Disposition: transfer to floor Code status: full code
[2019-08-11 13:03] LABS: CKMB 1.7 ng/mL (0-6.6)
[2019-08-11 17:28] LABS: Critical Call Chem Troponin I RESULT DECREASING
[2019-08-11 17:47] LABS: CKMB 2.6 ng/mL (0-6.6)
--- NOTE | 2019-08-11 17:58 | RAD ---
PORTABLE AP CHEST X-RAY: 08/11/19 HISTORY: Chest pain. COMPARISON: 08/10/19. FINDINGS: Dobhoff feeding tube and nasogastric tubes have been removed. The tunneled right internal jugular vei n hemodialysis catheter remains unchanged in position. Cardiac silhouette is enlarged. There has been interval improvement in pulmonary vascular congestion as well as interval improvement in the interst itial and alveolar opacities in the right lung as well as improvement in interstitial densities on th e left. The findings are likely related to improvement in CHF and asymmetric pulmonary edema. No othe r interval change. IMPRESSION: Findings likely related to improvement in CHF and asymmetric pulmonary edema. However, continued foll ow-up is recommended. POS: DANICA
--- NOTE | 2019-08-11 19:56 | PDOC.EVN ---
Event Note - Event Note Event Note: Patient had some chest pain per nurse. Repeat EKG showed nonspecific T wave elevation in lead III, otherwise no changes. Troponin downtrending. Chest x ray shows improved pulmonary edema. Patient states his pain is coming more from his abdomen radiating up to his chest. Sharp pain. He is unable to sleep and is requesting something for sleep. He thought he got no antibiotics but advised that he got some last night and one this morning. Other a ntibiotics dosed according to his renal function On exam: patient now on room air, much more alert than this morning Lungs much clearer CVS: RRR, no murmurs, rubs, gallops Abdomen: no tenderness Extremities: no edema Will administer pepcid x 1, nitroglycerin and tylenol 3 for pain per patient request
[2019-08-11] MEDS ORDERED: Nitroglycerin 0.4 MG TAB (25 Tab Bottle) SL SCH (20:00)
[2019-08-11] MEDS ORDERED: Famotidine 20 MG TAB PO SCH (20:00)
[2019-08-11] MEDS ORDERED: Melatonin 3 MG TAB PO PRN (20:20)
[2019-08-11] MEDS: Acetaminophen/Codeine 30-300mg Tablet PO PRN (20:31)
[2019-08-11] MEDS: Atorvastatin Calcium 40 MG TAB PO SCH (20:31)
[2019-08-11] MEDS ORDERED: FLU VACC QS2019-20(6MOS UP)/PF 60 MCG/0.5 ML SYRINGE IM ONE (21:00)
[2019-08-12] MEDS: Acetaminophen/Codeine 30-300mg Tablet PO PRN (04:08)
[2019-08-12] MEDS: NIFEdipine XL 60 MG TAB PO SCH (08:56)
[2019-08-12] MEDS: Calcitriol 0.25 MCG CAP PO SCH (08:56)
[2019-08-12] MEDS: cloNIDine 0.2 MG TAB PO SCH ×2 (08:57→20:04)
[2019-08-12] MEDS: Famotidine/PF 20 mg/2ml Vial SLOW IVP SCH (08:57)
[2019-08-12] MEDS: Cefepime 0.5 GM, Admixture Fee 1 EACH in Sodium Chloride 0.9% 100 ML IVPB SCH (08:57)
[2019-08-12] MEDS: Oseltamivir 6 MG/ML ORAL SUSP PO SCH (08:57)
[2019-08-12] MEDS: hydrALAZINE 25 MG TAB PO SCH ×3 (08:57→20:05)
[2019-08-12 12:13] LABS: Vancomycin, Random 13.4 ug/mL (See Comment)
[2019-08-12 12:22] LABS: Anion Gap 25 mmol/L (10-20); BUN (Urea Nitrogen) 66 mg/dL (8.9-20.6); Carbon Dioxide 18 mmol/L (22-29); Chloride 98 mmol/L (98-107); Potassium 5.1 mmol/L (3.5-5.1); Sodium 136 mmol/L (136-145)
[2019-08-12 12:23] LABS: Calc. Creatinine Clearance 13 mL/min (70-130); Estimated GFR-MDRD 8
[2019-08-12 12:24] LABS: Calcium 8.4 mg/dL (7.8-10.44); Glucose 107 mg/dL (70-105); Magnesium 2.2 mg/dL (1.6-2.6); Phosphorus 5.4 mg/dL (2.3-4.7)
[2019-08-12] MEDS ORDERED: traMADol HCl 50 MG TAB PO PRN (12:59)
[2019-08-12] MEDS ORDERED: Lidocaine 5% Patch TD SCH ×2 (13:00→18:00)
--- NOTE | 2019-08-12 13:48 | PDOC.HOSPP ---
- Subjective Encounter Date: 08/12/19 Encounter Time: 13:46 Subjective: The patient reports pain on the right side when taking a deep breath. He states his pain is improved compared to yesterday, but still there. He is unable to sleep, states melatonin did not help and really would like something to knock him out so he can sleep for 12 hours. Feels impaired sleep is preventing him from getting better. Per nurse, nitro didn't help, unsure if pepcid helped. No fevers Reports a normal stress test 5 years ago, however is still smoking Patient feels sensation in his legs is starting to come back - Objective Vital Signs & Weight: Vital Signs (12 hours) Temp Pulse Resp BP BP BP Pulse Ox 08/12/19 13:06 77 20 94 L 08/12/19 11:44 97.9 F 77 16 172/92 H 98 08/12/19 08:57 73 156/85 H 08/12/19 08:56 73 08/12/19 07:42 97.9 F 73 15 156/85 H 97 08/12/19 07:02 73 18 95 08/12/19 03:03 97.6 F 80 14 143/72 H 97 Weight Weight 180 lb 1.6 oz Most Recent Monitor Data Heart Rate from ECG 79 NIBP 138/79 NIBP BP-Mean 98 Respiration from ECG 16 SpO2 93 I&O: 08/11/19 08/12/19 08/13/19 06:59 06:59 06:59 Intake Total 1487 Output Total 100 680 Balance -100 807 Result Diagrams: 08/11/19 01:52 08/12/19 11:29 Additional Labs: Accuchecks 08/12/19 08/12/19 08/11/19 11:45 05:41 20:42 POC Glucose 111 H 99 135 H Hospitalist ROS - Review of Systems Eyes: denies: redness Respiratory: denies: cough, dry - Medication Medications: Active Medications Generic Name Dose Route Start Last Admin Trade Name Freq PRN Reason Stop Dose Admin Acetaminophen 650 mg 08/11/19 09:59 08/11/19 10:20 Tylenol PO 650 mg Q6H PRN Administration Fever>101/(Mi/Mod/Sev) Pain Acetaminophen/Codeine Phosphate 1 tab 08/11/19 19:52 08/12/19 04:08 Tylenol #3 PO 1 tab Q8H PRN Administration Moderate Pain (4-6) Albuterol/Ipratropium 3 ml 08/11/19 01:00 08/12/19 13:06 Duoneb NEB 3 ml [id number] STEVEN Administration Atorvastatin Calcium 40 mg 08/11/19 21:00 08/11/19 20:31 Lipitor PO 40 mg HS STEVEN Administration Calcitriol 0.25 mcg 08/11/19 09:00 08/12/19 08:56 Rocaltrol PO 0.25 mcg DAILY STEVEN Administration Clonidine 0.2 mg 08/11/19 09:00 08/12/19 08:57 Catapres PO 0.2 mg BID STEVEN Administration Epoetin Daniel-epbx 7,500 unit 08/11/19 09:15 08/11/19 09:58 Retacrit SC 7,500 unit Q7D STEVEN Administration Famotidine 20 mg 08/11/19 09:00 08/12/19 08:57 Pepcid SLOW IVP 20 mg DAILY STEVEN Administration Hydralazine HCl 25 mg 08/11/19 09:00 08/12/19 08:57 Apresoline PO 25 mg TID STEVEN Administration Cefepime HCl 0.5 gm/ 100 mls @ 200 mls/hr 08/11/19 09:00 08/12/19 08:57 Miscellaneous Medication 1 IVPB 100 mls each/ Sodium Chloride 0900 STEVEN Administration Melatonin 3 mg 08/11/19 20:20 08/11/19 22:09 Melatonin PO 3 mg HS PRN Administration Insomnia Nifedipine 60 mg 08/11/19 09:00 08/12/19 08:56 Procardia Xl PO 60 mg DAILY STEVEN Administration Oseltamivir Phosphate 30 mg 08/11/19 09:00 08/12/19 08:57 Tamiflu PO 08/15/19 09:01 30 mg DAILY STEVEN Administration - Exam General Appearance: NAD, awake alert Eye: PERRL, anicteric sclera ENT: normocephalic atraumatic, no oropharyngeal lesions Neck: supple, symmetric, no JVD, no thyromegaly Heart: RRR, no murmur, no gallops, no rubs Respiratory - other findings: bilateral rales at the bases Gastrointestinal: soft, non-tender, non-distended Extremities: no cyanosis, no clubbing, no edema Skin: normal turgor, no lesions, no rashes Neurological: cranial nerve grossly intact, normal sensation to touch, no focal deficits, no new deficit Musculoskeletal: normal tone, normal strength, no muscle wasting Psychiatric: normal affect, normal behavior, A&O x 3, oriented to person Hosp A/P - Plan This is a 39 year old male with history of ESRD who presented with worsening shortness of breath, fevers, myalgias, admitted for acute hypoxic resp failure #Sepsis possibly secondary to pneumonia #Acute hypoxic respiratory failure from pneumonia vs pulmonary edema from missed dialysis requiring intubation - s/p extubation #Hypertensive emergency #ESRD - had fever+ tachycardia + hypoxia in ER, chest X ray showing possible pneumonia. On IV vancomycin, levaquin and cefepime, continue for now day 3. Procalcitonin 8.5 - blood cultures x 2, sputum cultures pending - on room air currently - patient to get dialysis tomorrow, wants treatment before he leaves Chest pain - appears to be pleuritic currently, likely from pneumonia - EKG showed nonspecific T wave elevation in lead III, troponin downtrending - ECHO showed no wall motion abnormalities - continue aspirin and statin - cardiology following - will order lidocaine patch and tramadol = #Influenza A - continue tamiflu 75 mg daily #Anemia - HB 9, stable - likely anemia of chronic disease. Had normal ferritin in May Disposition: possibly home tomorrow Code status: full code
[2019-08-12 17:19] LABS: Hemoglobin 8.4 g/dL (14.0-18.0); Mean Corpuscular HGB CONC 33.2 g/dL (32.0-36.0); Mean Corpuscular Hemoglobin 28.4 pg (27.0-31.0); Mean Corpuscular Volume 85.6 fL (78.0-98.0); Mean Platelet Volume 10.3 fL (7.4-10.4); Platelet Count 134 thou/uL (130-400); Red Blood Cell (RBC) Count 2.96 mill/uL (4.70-6.10)
[2019-08-12 17:45] LABS: Anisocytosis SLIGHT = 6-15 cells (100X) (0-5/hpf); Band 12 % (5-11); Lymphocytes 10 % (21-51); MDiff Complete? YES; Monocytes 6 % (0-10); Neutrophil 72 % (42-75); Platelet Morphology Comment Appears Adequate; Polychromasia SLIGHT = 2-3 cells (100X) (0-2/hpf); Schistocytes SLIGHT = 2-5 cells (100X) (0-1/hpf); Vacuoles SLIGHT; White Blood Cell (WBC) Count 6.1 thou/uL (4.8-10.8)
[2019-08-12] MEDS: Atorvastatin Calcium 40 MG TAB PO SCH (20:04)
[2019-08-12] MEDS ORDERED: Zolpidem Tartrate 5 MG TAB PO SCH (21:00)
[2019-08-12] MEDS ORDERED: Zolpidem Tartrate 5 MG TAB PO PRN (23:10)
[2019-08-13 04:19] LABS: Hemoglobin 7.7 g/dL (14.0-18.0); Mean Corpuscular HGB CONC 32.8 g/dL (32.0-36.0); Mean Corpuscular Hemoglobin 27.9 pg (27.0-31.0); Mean Corpuscular Volume 85.3 fL (78.0-98.0); Mean Platelet Volume 10.3 fL (7.4-10.4); Platelet Count 116 thou/uL (130-400); Red Blood Cell (RBC) Count 2.77 mill/uL (4.70-6.10); White Blood Cell (WBC) Count 5.4 thou/uL (4.8-10.8)
[2019-08-13 04:43] LABS: ALT (SGPT) 60 U/L (8-55); AST (SGOT) 79 U/L (5-34); Albumin 3.6 g/dL (3.5-5.0); Alkaline Phosphatase 123 U/L (40-110); Anion Gap 19 mmol/L (10-20); BUN (Urea Nitrogen) 76 mg/dL (8.9-20.6); Bilirubin, Total 0.7 mg/dL (0.2-1.2); Calc. Creatinine Clearance 11 mL/min (70-130); Calcium 8.6 mg/dL (7.8-10.44); Carbon Dioxide 25 mmol/L (22-29); Chloride 95 mmol/L (98-107); Estimated GFR-MDRD 7; Globulin 2.8 g/dL (2.4-3.5); Glucose 87 mg/dL (70-105); Potassium 3.7 mmol/L (3.5-5.1); Protein, Total 6.4 g/dL (6.0-8.3); Sodium 135 mmol/L (136-145)
[2019-08-13] MEDS ORDERED: Lidocaine Patch Removal TOP SCH (06:00)
[2019-08-13 08:25] LABS: Vancomycin, Trough 12.8 ug/mL
[2019-08-13] MEDS: Famotidine/PF 20 mg/2ml Vial SLOW IVP SCH (09:00)
--- NOTE | 2019-08-13 10:41 | PRG ---
DATE OF SERVICE: 08/13/2019 SUBJECTIVE: Mr. Chilel is a 39-year-old black male with ESRD from a presumed hypertensive nephropathy and was admitted for shortness of breath. He was noted to have CHF. Cardiac echo showed a normal EF. He is currently undergoing hemodialysis. His breathing is much improved. OBJECTIVE: VITAL SIGNS: Blood pressure is 144/70, heart rate 85, respiratory rate 20, temperature 97.6, pulse ox 99%. GENERAL: The patient is awake, alert, comfortable, not in distress. SKIN: Adequate turgor. HEENT: Slightly pale conjunctivae. Anicteric sclerae. NECK: No neck mass. No carotid bruits. No JVD. CHEST: No deformities. LUNGS: Decreased breath sounds. HEART: Normal sinus rhythm. No murmurs, gallops, or rubs. ABDOMEN: Globular, soft, nontender. No masses. EXTREMITIES: No edema. No deformities. MEDICATIONS: Medications of August 13, 2019, were reviewed. LABORATORY DATA: Laboratories of August 13, 2019; white count 5.4, hemoglobin 7.7, sodium 135, potassium 3.7, chloride 95, carbon dioxide 25, BUN 76, creatinine 10.1, AST 79, ALT 60. ASSESSMENT AND PLAN: 1. End-stage renal disease-stable, continue current hemodialysis regimen on Friday, Friday, and Friday. Maxing out fluid removal as tolerated. 2. Anemia, continuing weekly Epogen, p.r.n. blood transfusion. 3. Congestive heart failure, clinically much improved. EF noted to be within normal. Continue supportive care. 4. Labile hypertension-secondary to noncompliance of BP med intake. Counseling was done. Job ID: [id number]
[2019-08-13] MEDS: NIFEdipine XL 60 MG TAB PO SCH (12:29)
[2019-08-13] MEDS: Calcitriol 0.25 MCG CAP PO SCH (12:30)
[2019-08-13] MEDS: cloNIDine 0.2 MG TAB PO SCH (12:30)
[2019-08-13] MEDS: Carvedilol 6.25 MG TAB PO SCH ×2 (12:30→16:17)
[2019-08-13] MEDS: hydrALAZINE 25 MG TAB PO SCH ×2 (12:30→16:17)
[2019-08-13 15:54] VITALS: BP 160/86; TEMP 98.5
[2019-08-13] MEDS ORDERED: FLU VACC QS2019-20(6MOS UP)/PF 60 MCG/0.5 ML SYRINGE IM ONE (16:08)
[2019-08-13] MEDS: Oseltamivir 6 MG/ML ORAL SUSP PO SCH (16:18)
--- NOTE | 2019-08-14 09:50 | EKG ---
Test Reason : Blood Pressure : / mmHG Vent. Rate : 084 BPM Atrial Rate : 084 BPM P-R Int : 138 ms QRS Dur : 084 ms QT Int : 402 ms P-R-T Axes : 052 -05 139 degrees QTc Int : 475 ms Normal sinus rhythm Possible Left atrial enlargement Left ventricular hypertrophy Nonspecific T wave abnormality Prolonged QT Abnormal ECG When compared with ECG of 10-AUG-2019 17:38, (Unconfirmed) Nonspecific T wave abnormality now evident in Inferior leads T wave amplitude has decreased in Anterior leads Confirmed by NATALIIA DOWNS, SGopal ([id number]) on 08/14/2019 9:49:38 AM Referred By: SILVIA Confirmed By:DR. Allen WILLIAM MD
== END 2019-08-13 17:07 | disposition home or self-care (01) | DRG 871 ==
LOC: ERS 17:09 → CCU 08-11 00:47 → 2NO 08-11 14:51
PROVIDERS: ADMIT Internal Medicine; ATTEND Internal Medicine
PROC: 0BH17EZ Insertion of Endotracheal Airway into Trachea, Via Natural or Artificial Opening (ICD-10-PCS; principal; 2019-08-11)
PROC: 5A1935Z Respiratory Ventilation, Less than 24 Consecutive Hours (ICD-10-PCS; 2019-08-11)
PROC: 3E0234Z Introduction of Serum, Toxoid and Vaccine into Muscle, Percutaneous Approach (ICD-10-PCS; 2019-08-11)
PROC: 5A1D70Z Performance of Urinary Filtration, Intermittent, Less than 6 Hours Per Day (ICD-10-PCS; 2019-08-12)
PROC: 3E02340 Introduction of Influenza Vaccine into Muscle, Percutaneous Approach (ICD-10-PCS; 2019-08-13)
DX: A41.89 Other specified sepsis (principal); J10.00 Influenza due to other identified influenza virus with unspecified type of pneumonia; J96.01 Acute respiratory failure with hypoxia; N18.6 End stage renal disease; I16.1 Hypertensive emergency; I13.2 Hypertensive heart and chronic kidney disease with heart failure and with stage 5 chronic kidney disease, or end stage renal disease; Z23 Encounter for immunization; J10.1 Influenza due to other identified influenza virus with other respiratory manifestations; J20.8 Acute bronchitis due to other specified organisms; F17.210 Nicotine dependence, cigarettes, uncomplicated; I16.0 Hypertensive urgency; D63.1 Anemia in chronic kidney disease; I34.0 Nonrheumatic mitral (valve) insufficiency; I50.9 Heart failure, unspecified; Z91.19 Patient's noncompliance with other medical treatment and regimen; Z79.899 Other long term (current) drug therapy
CPT/HCPCS: 36415; 36416; 71045; 80048; 80053; 80061; 80202; 80306; 82533; 82553; 82607; 82746; 82805; 83605; 83735; 84100; 84145; 84484; 85025; 85027; 87340; 89220; 90471; 90686; 93005; 93010; 93306; 94003; 94640; G0008; J0360; J0692; J1956; J2250; J2270; J2405; J2543; J2704; J2920; J3010; J3370; J3490; J7050; J7620; Q5105; S0028

== ENCOUNTER 2019-08-27 22:54 | Emergency (ER) | payer OTHER ==
[2019-08-27 23:43] LABS: Hemoglobin 8.7 g/dL (14.0-18.0); Mean Corpuscular HGB CONC 34.6 g/dL (32.0-36.0); Mean Corpuscular Hemoglobin 29.7 pg (27.0-31.0); Mean Corpuscular Volume 85.8 fL (78.0-98.0); Mean Platelet Volume 8.7 fL (7.4-10.4); Platelet Count 192 thou/uL (130-400); RBC Distribution Width 16.5 % (11.5-14.5); Red Blood Cell (RBC) Count 2.93 mill/uL (4.70-6.10); White Blood Cell (WBC) Count 4.6 thou/uL (4.8-10.8)
[2019-08-27 23:52] LABS: Bacteria/HPF 1+ HPF (None Seen); Bilirubin Negative (Negative); Blood, Urine Negative (Negative); Clarity Clear (Clear); Glucose, Urine (Dipstick) 30 mg/dL (Negative); Leukocyte Negative Leu/uL (Negative); Nitrite Negative (Negative); Protein, Urine (Dipstick) 300 mg/dL (Neg-Trace); RBC/HPF 0-3 HPF (0-3); Squamous Epithelial None Seen HPF (0-3); Urobilinogen Normal mg/dL (Less than 2)
[2019-08-28] LABS: Hypochromia SLIGHT = 6-15 cells (100X) (0-5/hpf); Lymphocytes 18 % (21-51); MDiff Complete? YES; Monocytes 11 % (0-10); Neutrophil 71 % (42-75); Platelet Morphology Comment Appears Adequate
== END 2019-08-28 00:27 | disposition home or self-care (01) ==
LOC: ERS 22:54
DX: I12.0 Hypertensive chronic kidney disease with stage 5 chronic kidney disease or end stage renal disease (principal); N18.6 End stage renal disease; D63.1 Anemia in chronic kidney disease; F17.210 Nicotine dependence, cigarettes, uncomplicated; Z99.2 Dependence on renal dialysis; Z79.899 Other long term (current) drug therapy
CPT/HCPCS: 36415; 81003; 81015; 85025; 86850; 86900; 86901; 99284

== ENCOUNTER 2019-10-08 16:11 | Inpatient (IN) | payer MEDICARE, MEDICAID ==
[2019-10-08] MEDS ORDERED: hydrALAZINE 20 MG/ML VIAL ONE (17:01)
[2019-10-08 17:06] LABS: #Eosinphils 0.1 thou/uL (0.0-0.7); #Lymphocytes 1.7 thou/uL (1.20-3.40); #Monocytes 0.7 thou/uL (0.11-0.59); #Neutrophils 4.6 thou/uL (1.40-6.50); %Basophils 0.6 % (0.0-1.0); %Eosinophils 2.1 % (0.0-10.0); %Lymphocytes 23.7 % (21.0-51.0); %Monocytes 9.2 % (0.0-10.0); %Neutrophils 64.4 % (42.0-75.0); Hemoglobin 11.1 g/dL (14.0-18.0); Mean Corpuscular HGB CONC 32.2 g/dL (32.0-36.0); Mean Corpuscular Hemoglobin 28.5 pg (27.0-31.0); Mean Corpuscular Volume 88.6 fL (78.0-98.0); Mean Platelet Volume 10.6 fL (7.4-10.4); Platelet Count 142 thou/uL (130-400); RBC Distribution Width 16.5 % (11.5-14.5); White Blood Cell (WBC) Count 7.2 thou/uL (4.8-10.8)
[2019-10-08 17:23] LABS: ALT (SGPT) 15 U/L (8-55); AST (SGOT) 24 U/L (5-34); Albumin 4.5 g/dL (3.5-5.0); Alkaline Phosphatase 70 U/L (40-110); Anion Gap 16 mmol/L (10-20); BUN (Urea Nitrogen) 32 mg/dL (8.9-20.6); Bilirubin, Total 1.2 mg/dL (0.2-1.2); CK (CPK) 83 U/L (30-200); Calc. Creatinine Clearance 0 mL/min (70-130); Carbon Dioxide 28 mmol/L (22-29); Chloride 98 mmol/L (98-107); Estimated GFR-MDRD 10; Globulin 3.1 g/dL (2.4-3.5); Glucose 97 mg/dL (70-105); Potassium 3.7 mmol/L (3.5-5.1); Protein, Total 7.6 g/dL (6.0-8.3); Sodium 138 mmol/L (136-145)
[2019-10-08] MEDS ORDERED: cloNIDine 0.1 MG TAB ONE (17:32)
[2019-10-08 17:45] LABS: CKMB 1.5 ng/mL (0-6.6)
--- NOTE | 2019-10-08 17:59 | CT ---
CT OF THE BRAIN WITHOUT CONTRAST: 10/08/19 COMPARISON: None. HISTORY: Hypertension with headache. TECHNIQUE: Multiple contiguous axial images were obtained in a CT of the brain without contrast. FINDINGS: The brain is normal in morphology and attenuation without focal lesions or confluent areas of infarct ion. There is no evidence of hydrocephalus, intracranial hemorrhage, or extra-axial fluid collection. The calvarium and overlying soft tissues are unremarkable. The visualized paranasal sinuses and masto id air cells are well aerated. IMPRESSION: No evidence of acute intracranial abnormality. POS: C
[2019-10-08] MEDS ORDERED: Aspirin Chewable 81 MG TAB ONE (18:29)
[2019-10-08] MEDS ORDERED: niCARdipine 25 MG in Sodium Chloride 0.9% 250 ML 240 ML IVPB SCH (18:45)
[2019-10-08 19:03] LABS: Acetaminophen Less than 6.0 mcg/mL (10.0-30.0); Alcohol Less than 10 mg/dL (Less than 10); Salicylate Less than 8.0 mg/dL (15.0-30.0)
[2019-10-08 19:29] LABS: Troponin I 0.136 ng/mL (< 0.028)
[2019-10-08] MEDS ORDERED: Ondansetron ODT 4 MG TAB SL PRN (19:52)
[2019-10-08] MEDS ORDERED: Ondansetron PF 4 MG/2 ML Vial IVP PRN (19:52)
[2019-10-08 19:57] LABS: Amphetamine Not Detected (NotDetected); Barbiturates Screen Not Detected (NotDetected); Benzodiazepine Screen Not Detected (NotDetected); Cocaine Metabolite Screen Not Detected (NotDetected); Medtox Control Line Valid? VALID (VALID); Medtox Reader # READER 4; Methadone Not Detected (NotDetected); Methamphetamine Not Detected (NotDetected); Opiate Screen Not Detected (NotDetected); Oxycodone Screen Not Detected (NotDetected); Phencyclidine (PCP) Not Detected (NotDetected); THC/Cannabinoid Screen Detected (NotDetected); Tricyclic Screen Not Detected (NotDetected)
[2019-10-08] MEDS ORDERED: Nitroglycerin 50 MG/250 ML BOT 0 ML ONE (20:27)
[2019-10-08] MEDS ORDERED: Nitroglycerin 2% Ointment 1 INCH/1 GM Packet ONE ×2 (20:27→20:28)
[2019-10-08] MEDS ORDERED: Senokot S 8.6-50 MG TAB PO PRN (20:34)
[2019-10-08] MEDS ORDERED: Guaifenesin DM 100-10/5 ML UDCUP PO PRN (20:34)
[2019-10-08] MEDS ORDERED: Mag-Al 1200 mg/1200 mg/30 ML UDCUP PO PRN (20:34)
[2019-10-08] MEDS ORDERED: Bisacodyl 10 MG SUPP PR PRN (20:34)
[2019-10-08] MEDS ORDERED: Morphine 4 MG/ML VIAL ONE (20:37)
[2019-10-08] MEDS: Ondansetron PF 4 MG/2 ML Vial IVP PRN (20:37)
[2019-10-08] MEDS ORDERED: Promethazine HCl 25 MG/ML VIAL IM/IV PRN (20:40)
[2019-10-08] MEDS ORDERED: Nitroglycerin 2% Ointment 1 INCH/1 GM Packet TOP SCH (21:00)
[2019-10-08] MEDS ORDERED: Minoxidil 10 MG TAB PO SCH (21:00)
--- NOTE | 2019-10-08 21:03 | HP ---
REASON FOR ADMISSION: Hypertensive emergency, volume overload, missing hemodialysis, noncompliance. HISTORY OF PRESENTING ILLNESS: The patient gives history of having gone to his hemodialysis place this morning. His blood pressure was 270/165. The patient did not feel good and he asked them to take him to emergency room. They did not dialyze him. Here in the ER, he was found to have had blood pressures of 289/167 and was started on Cardene drip and has been placed in the ICU now. He has complaints of heartburn at present which slowly turned into chest pain as I was examining him. The pain is 6-7/10 in intensity. There is no radiation. He is getting an inch of nitroglycerin paste now. The patient also mentions that he has not been sleeping for the last 3 weeks and has not been eating well for last 1 week now. He also admits to using marijuana and ecstasy. Did speak to Dr. Zapata and Dr. Zapata mentions that he normally runs his blood pressure around 240s systolic. He is noncompliant with medication and he is very picky with taking specific medication and not all of them. PAST MEDICAL AND SURGICAL HISTORY: End-stage renal disease, on hemodialysis from last 5 months; hypertension; right ankle surgery; right upper extremity dialysis access procedures; has a tunneled hemodialysis catheter in his right chest area. CURRENT MEDICATIONS: 1. Hydralazine 100 mg 3 times daily. 2. Clonidine 0.2 mg 3 times daily. 3. Procardia XL 90 mg daily. ALLERGIES: NO KNOWN DRUG ALLERGIES. PERSONAL HISTORY: The patient admits to using marijuana on a daily basis, ecstasy off and on. Smokes 1 pack a day. Says he does not drink alcohol. FAMILY HISTORY: Both parents are living and are healthy as far as he knows. CODE STATUS: Full. REVIEW OF SYSTEMS: CONSTITUTIONAL: Negative for weight loss or gain, ability to conduct usual activities. SKIN: Negative for rash, itching. EYES: Negative for double vision, pain. ENT/MOUTH: Negative for nose bleeding, neck stiffness, pain, tenderness. CARDIOVASCULAR: Negative for palpitations, dyspnea on exertion, orthopnea. RESPIRATORY: Negative for shortness of breath, wheezing, cough, hemoptysis, fever or night sweats. GASTROINTESTINAL: Negative for poor appetite, abdominal pain, heartburn, nausea , vomiting, constipation, or diarrhea. GENITOURINARY: Negative for urgency, frequency, dysuria, nocturia. MUSCULOSKELETAL: Negative for pain, swelling. NEUROLOGIC/PSYCHIATRIC: Negative for anxiety, depression. ALLERGY/IMMUNOLOGIC: Negative for skin rash, bleeding tendency. PHYSICAL EXAMINATION: GENERAL: The patient is a 39-year-old male who is currently having some nausea and he is throwing up at present as I finished examining him. VITAL SIGNS: Current blood pressures are 210/110, pulse 90 per minute, respiratory rate 20 per minute, temperature 98.4 degrees Fahrenheit, saturating 100% on room air. NECK: Supple. No elevated JVD. HEENT: Eyes; extraocular muscles intact, pupils reacting to light. Oral cavity , mucous membranes are dry. No exudates or congestion. CARDIOVASCULAR SYSTEM: S1, S2 heard. Loud S2. RESPIRATORY SYSTEM: Air entry 1+ bilateral. Scattered rhonchi plus no rales or wheezes. ABDOMEN: Soft. Bowel sounds heard. No tenderness, rigidity, or guarding. EXTREMITIES: No peripheral edema or calf tenderness. VASCULAR SYSTEM: Peripheral pulses 1+ bilateral. No ischemic ulcerations or gangrene. CENTRAL NERVOUS SYSTEM: No gross focal deficits noted. The patient is alert, awake, oriented well. PSYCHIATRIC SYSTEM: The patient is a bit anxious, otherwise no hallucinations or delusions. LABORATORY DATA: EKG done shows sinus tach at 101 beats per minute. There are signs of LVH seen on the EKG. H and H are 11 and 34, platelet count 142, MCV is 88 with 64% neutrophils. White count of 7.2, BUN 32, creatinine 7.4, serum bicarb 28. LFTs are within normal limits. Troponin is 0.13. CK-MB 1.5. Albumin 4.5. Urine drug screen is positive for cannabinoids. Plasma alcohol less than 10. CT brain done here in the ER shows no acute intracranial abnormality. CLINICAL IMPRESSION AND PLAN: The patient is admitted to ICU for hypertensive emergency and is on Cardene drip at present. The patient is noncompliant with his hypertension medications. I have discussed this with Dr. Zapata. He has plan to dialyze him tomorrow. He will be on clonidine 0.2 mg 3 times daily, Procardia XL 90 mg daily and 1 dose now, hydralazine 50 mg 3 times daily, nitroglycerin paste 1 inch now, minoxidil 5 mg now and 5 mg daily. As his blood pressure comes down, his Cardene will be slowly tapered and discontinued. We will also continue his hydralazine at 50 mg 3 times daily. We will continue to closely monitor him in ICU for now. Job ID: [id number] PRIYA
[2019-10-08 21:26] VITALS: BMI 23.3
[2019-10-09] MEDS: cloNIDine 0.2 MG TAB PO SCH ×3 (01:05→14:36)
[2019-10-09] MEDS: hydrALAZINE 25 MG TAB PO SCH ×4 (01:05→20:11)
[2019-10-09] MEDS: HYDROcodone/Acetaminophen 5/325 mg Tablet PO PRN ×4 (01:06→20:15)
[2019-10-09 04:06] LABS: #Eosinphils 0.1 thou/uL (0.0-0.7); #Lymphocytes 1.5 thou/uL (1.20-3.40); #Monocytes 0.7 thou/uL (0.11-0.59); #Neutrophils 5.5 thou/uL (1.40-6.50); %Basophils 0.4 % (0.0-1.0); %Eosinophils 1.5 % (0.0-10.0); %Lymphocytes 19.2 % (21.0-51.0); %Monocytes 8.7 % (0.0-10.0); %Neutrophils 70.3 % (42.0-75.0); Hemoglobin 10.3 g/dL (14.0-18.0); Mean Corpuscular HGB CONC 32.3 g/dL (32.0-36.0); Mean Corpuscular Hemoglobin 28.7 pg (27.0-31.0); Mean Corpuscular Volume 88.8 fL (78.0-98.0); Mean Platelet Volume 9.9 fL (7.4-10.4); Platelet Count 129 thou/uL (130-400); RBC Distribution Width 16.3 % (11.5-14.5); Red Blood Cell (RBC) Count 3.58 mill/uL (4.70-6.10); White Blood Cell (WBC) Count 7.9 thou/uL (4.8-10.8)
[2019-10-09 04:27] LABS: Albumin 4.3 g/dL (3.5-5.0); Anion Gap 17 mmol/L (10-20); BUN (Urea Nitrogen) 36 mg/dL (8.9-20.6); BUN/Creatinine Ratio 4.53; Calc. Creatinine Clearance 14 mL/min (70-130); Calcium 9.8 mg/dL (7.8-10.44); Carbon Dioxide 26 mmol/L (22-29); Chloride 99 mmol/L (98-107); Estimated GFR-MDRD 9; Glucose 106 mg/dL (70-105); Phosphorus 3.7 mg/dL (2.3-4.7); Potassium 3.3 mmol/L (3.5-5.1); Sodium 139 mmol/L (136-145)
[2019-10-09] MEDS ORDERED: niCARdipine 25 MG in Sodium Chloride 0.9% 250 ML 240 ML IVPB SCH (06:00)
--- NOTE | 2019-10-09 08:44 | CON ---
DATE OF CONSULTATION: 10/09/2019 REASON FOR CONSULTATION: Hypertensive emergency. HISTORY OF PRESENT ILLNESS: A 39-year-old male, who was brought into the hospital yesterday from the dialysis unit where he presented with a grossly elevated blood pressure. I was told he did not receive dialysis yesterday. He apparently was not fluid overload. He was not complaining of shortness of breath, but did have a headache. PAST MEDICAL HISTORY: 1. End-stage renal disease requiring dialysis for the last five months. 2. Malignant hypertension. 3. Right ankle surgery. 4. Tunneled dialysis catheter, right chest. MEDICATIONS: Medications prior to admission; hydralazine 100 mg t.i.d., clonidine 0.2 mg t.i.d., and Procardia XL 90 mg daily. I think he was out of these medications and not using any. ALLERGIES: NONE. SOCIAL HISTORY: He claims he is not using any substances at the current time other than tobacco products. He has had a history of marijuana and ecstasy use in the past. FAMILY MEDICAL HISTORY: Unremarkable. REVIEW OF SYSTEMS: Denies fever, chills, nausea, vomiting, hematemesis, melena, hematochezia, hematuria, or dysuria. PHYSICAL EXAMINATION: VITAL SIGNS: Temperature 98.7, pulse rate 99, blood pressure 218/117, and O2 saturation 100%. GENERAL: He is awake, alert, in no distress, currently on a nicardipine drip. HEENT: Unremarkable. NECK: No adenopathy or JVD. LUNGS: Clear without wheezing or rhonchi. CARDIAC: S1 and S2, regular without audible murmur. ABDOMEN: Soft, nontender, and nondistended. EXTREMITIES: No clubbing, cyanosis, or edema. LABORATORY DATA: Sodium 139, potassium 3.3, chloride 99, CO2 of 26, BUN 36, creatinine 7.9, and glucose 106. Troponin 0.136. White blood cell count 7.9, hematocrit 31.8, and platelet count 129. Tox screen was positive for cannabinoids. ASSESSMENT: 1. Malignant hypertension, probably chronic and not necessarily in an emergency state. 2. Chronic renal failure requiring hemodialysis. PLAN: 1. His oral antihypertensives have been restarted by the hospitalist group. He is currently on a nicardipine drip, which can be weaned slowly throughout the day. 2. Nephrology input per Dr. Zapata. 3. Hopefully, able to transfer out of the ICU once he is off the nicardipine drip. Job ID: [id number]
[2019-10-09] MEDS ORDERED: Minoxidil 10 MG TAB PO SCH (09:00)
[2019-10-09] MEDS ORDERED: Minoxidil 2.5 MG TAB PO SCH (09:00)
[2019-10-09] MEDS ORDERED: NIFEdipine XL 60 MG TAB PO SCH (09:00)
[2019-10-09] MEDS: Minoxidil 2.5 MG TAB PO SCH (09:24)
[2019-10-09] MEDS: Calcitriol 0.25 MCG CAP PO SCH (09:25)
[2019-10-09] MEDS: Enoxaparin Sodium 30 MG/0.3 ML SYRINGE SC SCH (09:25)
[2019-10-09] MEDS: Acetaminophen 325 MG TAB PO PRN ×2 (09:26→21:01)
[2019-10-09] MEDS ORDERED: Heparin 10,000 UNITS/ 10 ML VIAL ONE (10:31)
--- NOTE | 2019-10-09 11:38 | PRG ---
DATE OF SERVICE: 10/09/2019 SERVICE: Renal Medicine. SUBJECTIVE: Mr. Chilel is a 39-year-old black male, who was admitted for labile hypertension. He was supposed to get dialysis, but he left dialysis since he was not feeling well. During the initial evaluation, his blood pressure was noted to be significantly elevated with systolic being in the 250s. He was started on IV Cardene drip. His BP medications have been resumed. Please note, the patient has history of noncompliance. He has not been taking his recommendeded blood pressure medications. This morning, he is feeling a little better. OBJECTIVE: VITAL SIGNS: Blood pressure 211/116, heart rate 95, respiratory rate 22, and O2 saturation 98%. GENERAL: Noted to be awake, alert, comfortable, not in distress. SKIN: Adequate turgor. HEENT: He has a slightly pale conjunctivae. Anicteric sclerae. NECK: No neck mass. No carotid bruits. No JVD. CHEST: No deformities. LUNGS: Clear breath sounds. No wheezing. No crackles. HEART: Normal sinus rhythm. No murmur. No gallops. No rubs. ABDOMEN: Globular, soft, and nontender. No masses. EXTREMITIES: No edema. No deformities. NEUROLOGICAL: Moving all extremities. No tremors. No asterixis. No ataxia. MEDICATIONS: Medications of October 09, 2019, were reviewed. LABORATORY DATA: Laboratories of October 09, 2019; white count 7.9, hemoglobin 10.3. Sodium 139, potassium 3.3, chloride 99, carbon dioxide 26, BUN 36, creatinine 7.95, glucose 108, calcium 9.8, phosphorus 3.7, and albumin 4.3. ASSESSMENT AND PLAN: 1. Labile hypertension. Continue current antihypertensive regimen. Minoxidil has been increased to 10 mg tablet daily. I will probably also increase his nifedipine to a maximum of 90 mg tablet once a day. Continue Cardene drip. 2. End-stage renal disease, continuing hemodialysis regimen. He missed his dialysis yesterday and for this reason, we will do his hemodialysis for 4 hours. Maximal fluid removal as tolerated by the patient. 3. History of noncompliance - the patient has been counseled many, many times regarding compliance of BP medications. He has been resistant to intake of his regular BP medications. I did have a long conversation with the patient and explained to him the need for these medications. 4. Anemia. Hold Epogen until the BP is much better controlled. Job ID: [id number]
[2019-10-09] MEDS: Labetalol HCl 100 MG/20 ML VIAL SLOW IVP PRN (18:35)
--- NOTE | 2019-10-09 19:12 | PDOC.HOSPP ---
- Subjective Subjective: Pt had HD today. His BP is still very high, but he is asymptomatic. He has no complaints at this time. - Objective Vital Signs & Weight: Vital Signs (12 hours) Temp Pulse BP Pulse Ox 10/09/19 18:35 100 211/119 H 10/09/19 16:00 98.6 F 10/09/19 14:36 206/130 H 10/09/19 14:35 106 H 206/130 H 10/09/19 12:00 98.3 F 10/09/19 09:25 97 218/145 H 10/09/19 09:24 97 218/145 H 10/09/19 08:00 98.3 F 99 Weight Admit Weight 171 lb Weight 171 lb 15.369 oz Most Recent Monitor Data Heart Rate from ECG 99 NIBP 224/121 NIBP BP-Mean 155 Respiration from ECG 21 SpO2 100 I&O: 10/08/19 10/09/19 10/10/19 06:59 06:59 06:59 Intake Total 1027 725 Output Total 950 800 Balance 77 -75 Result Diagrams: 10/09/19 03:22 10/09/19 03:22 Hospitalist ROS - Review of Systems Constitutional: denies: fever, chills, sweats, weakness, malaise, other Eyes: denies: pain, vision change, conjunctivae inflammation, eyelid inflammation, redness, other ENT: denies: ear pain, ear discharge, nose pain, nose discharge, nose congestion , mouth pain, mouth swelling, throat pain, throat swelling, other Respiratory: denies: cough, dry, shortness of breath, hemoptysis, SOB with excertion, pleuritic pain, sputum, wheezing, other Cardiovascular: denies: chest pain, palpitations, orthopnea, paroxysmal noc. dyspnea, edema, light headedness, other Gastrointestinal: denies: nausea, vomiting, abdominal pain, diarrhea, constipation, melena, hematochezia, other Genitourinary: denies: dysuria, frequency, incontinence, hematuria, retention, other Musculoskeletal: denies: neck pain, shoulder pain, arm pain, back pain, hand pain, leg pain, foot pain, other Skin: denies: rash, lesions, vernon, bruising, other Neurological: denies: weakness, numbness, incoordination, change in speech, confusion, seizures, other - Medication Medications: Active Medications Generic Name Dose Route Start Last Admin Trade Name Freq PRN Reason Stop Dose Admin Acetaminophen 650 mg 10/08/19 20:34 10/09/19 09:26 Tylenol PO 650 mg Q4H PRN Administration Headache/Fever/Mild Pain (1-3) Hydrocodone Bitart/Acetaminophen 1 tab 10/08/19 20:34 10/09/19 14:35 [place] 5/325 PO 1 tab Q4H PRN Administration Moderate Pain (4-6) Al Hydroxide/Mg Hydroxide 30 ml 10/08/19 20:34 10/08/19 20:26 Maalox PO 30 ml Q6H PRN Administration Heartburn or Indigestion Calcitriol 0.25 mcg 10/09/19 09:00 10/09/19 09:25 Rocaltrol PO 0.25 mcg DAILY STEVEN Administration Enoxaparin Sodium 30 mg 10/09/19 09:00 10/09/19 09:25 Lovenox SC 30 mg 0900 STEVEN Administration Nicardipine HCl 25 mg/ Sodium 250 mls @ 0 mls/hr 10/09/19 06:00 10/09/19 06: 28 Chloride IVPB 250 mls INF STEVEN Administration Protocol Titrate Labetalol HCl 10 mg 10/09/19 17:02 10/09/19 18:35 Normodyne SLOW IVP 10 mg Q4H PRN Administration SBP Greater Than 180 Minoxidil 10 mg 10/09/19 09:00 10/09/19 09:24 Minoxidil PO 10 mg DAILY STEVEN Administration Ondansetron HCl 4 mg 10/08/19 20:34 10/08/19 20:37 Zofran IVP 4 mg Q6H PRN Administration Nausea/Vomiting Sodium Chloride 10 ml 10/09/19 09:00 10/09/19 09:25 Flush - Normal Saline IVF 10 ml Q12HR STEVEN Administration - Exam General Appearance: NAD, awake alert Eye: PERRL, anicteric sclera ENT: normocephalic atraumatic, moist mucosa Neck: supple, symmetric, no JVD, no thyromegaly, no lymphadenopathy Heart: RRR, no murmur, no gallops, no rubs, normal peripheral pulses Respiratory: CTAB, no wheezes, no rales, no ronchi Gastrointestinal: soft, non-tender, non-distended, normal bowel sounds Extremities: no cyanosis, no clubbing, no edema Skin: no lesions, no rashes Neurological: cranial nerve grossly intact, normal sensation to touch, no focal deficits Musculoskeletal: normal strength, no muscle wasting Psychiatric: normal affect, normal behavior, A&O x 3 Hosp A/P (1) Accelerated hypertension Code(s): I10 - ESSENTIAL (PRIMARY) HYPERTENSION Status: Acute Plan: Also being followed by Nephrology. Pt is s/p HD and cardizem has been d/c . Nephrology wants pts BP to be controlled via oral meds. Have therefore changed pt's meds to Nifedipine 60 mg BID, hydralazine 100 mg TID. Will cover with PRN Labetalol and monitor BP overnight. Have d/c Clonidine due to rebound HTN. Will cont to adjust meds for better BP control. (2) ESRD (end stage renal disease) Code(s): N18.6 - END STAGE RENAL DISEASE Status: Acute Plan: s/p HD today. Will cont HD per nephrology schedule. (3) Anemia of renal disease Code(s): N18.9 - CHRONIC KIDNEY DISEASE, UNSPECIFIED; D63.1 - ANEMIA IN CHRONIC KIDNEY DISEASE Status: Chronic Plan: Stable, monitor Hg. (4) Hypokalemia Code(s): E87.6 - HYPOKALEMIA Status: Acute Plan: s/p HD. Will monitor K. - Plan PPx: SCDs. CODE: FULL. Dispo: Cont current mgt. Control BP.
[2019-10-09] MEDS: NIFEdipine XL 60 MG TAB PO SCH (20:12)
[2019-10-09] MEDS ORDERED: FLU VACC QS2019-20(6MOS UP)/PF 60 MCG/0.5 ML SYRINGE IM ONE (21:00)
[2019-10-09] MEDS ORDERED: Prevnar 13-Val Conj/PF 0.5 ML SYRINGE IM ONE (21:00)
[2019-10-09] MEDS ORDERED: Nitroglycerin 2% Ointment 1 INCH/1 GM Packet TOP SCH (21:00)
[2019-10-09] MEDS: Ondansetron PF 4 MG/2 ML Vial IVP PRN (21:07)
[2019-10-09] MEDS ORDERED: traMADol HCl 50 MG TAB PO PRN (21:29)
[2019-10-09] MEDS ORDERED: Morphine 2 MG/ML SYRINGE SLOW IVP SCH (21:30)
[2019-10-10] MEDS ORDERED: ALPRAZolam 1 MG TAB PO SCH ×2 (02:45→19:07)
[2019-10-10] MEDS: Labetalol HCl 100 MG/20 ML VIAL SLOW IVP PRN (08:14)
[2019-10-10] MEDS: hydrALAZINE 25 MG TAB PO SCH (08:58)
[2019-10-10] MEDS: Enoxaparin Sodium 30 MG/0.3 ML SYRINGE SC SCH (08:58)
[2019-10-10] MEDS: NIFEdipine XL 60 MG TAB PO SCH (08:58)
[2019-10-10] MEDS: Calcitriol 0.25 MCG CAP PO SCH (08:59)
[2019-10-10] MEDS: Minoxidil 2.5 MG TAB PO SCH (08:59)
--- NOTE | 2019-10-10 09:31 | PRG ---
DATE OF SERVICE: 10/10/2019 SUBJECTIVE: He is sleeping quietly in bed. He had no complaints when I woke him up. OBJECTIVE: VITAL SIGNS: He has been taken off the Cardene drip, although his blood pressure remains elevated at 196/132, his pulse is 86, O2 saturation 92% on room air, temperature 98.7. HEENT: Unremarkable. NECK: No JVD. LUNGS: Clear anteriorly. CARDIAC: S1, S2. Regular. ABDOMEN: Soft. EXTREMITIES: No edema. LABORATORY DATA: No new labs were done today. ASSESSMENT: 1. Malignant hypertension with hypertensive encephalopathy. 2. Chronic renal failure requiring hemodialysis. PLAN: Blood pressure issues are being addressed by Dr. Zapata. The patient has been given his oral medication this morning that does not work to bring his blood pressure down. He may require re-initiation of the Cardene drip. Job ID: [id number]
--- NOTE | 2019-10-10 11:41 | PRG ---
DATE OF SERVICE: 10/10/2019 SERVICE: Renal Medicine. SUBJECTIVE: Mr. Chilel is a 39-year-old black male with ESRD and was admitted for labile hypertension. BP was extremely high with a systolic of 250 over a diastolic of 130 to 140 at the dialysis unit. He was started on Cardene drip. He is started back on his p.o. BP medications. Please note, this patient has history of noncompliance with regarding his BP medications. Again, a long discussion was made regarding compliance. Adjustments of his blood pressure medication are being done. The patient is asymptomatic. No chest pain. No headache. No nausea. No vomiting. No diarrhea. No constipation. OBJECTIVE: VITAL SIGNS: Blood pressure is 210/112, heart rate 93, and respiratory rate is 12. GENERAL: Awake, alert, comfortable, not in distress. SKIN: Adequate turgor. HEENT: He has a pinkish conjunctivae. Anicteric sclerae. NECK: No neck mass. No carotid bruits. No JVD. CHEST: No deformities. LUNGS: Clear breath sounds. No wheezing. No crackles. HEART: Normal sinus rhythm. No murmur. No gallops. No rubs. ABDOMEN: Globular, soft, and nontender. No masses. EXTREMITIES: No edema. No deformities. MEDICATIONS: Medications of October 10, 2019, was reviewed. LABORATORY DATA: Laboratories of October 09, 2019; sodium 139, potassium 3.3, chloride 99, carbon dioxide 26, BUN 36, creatinine 7.95, calcium 9.8, phosphorus 3.7, and albumin 4.3. Hemoglobin 10.3. ASSESSMENT AND PLAN: 1. Labile hypertension, continuing current BP medications. My feeling is that the blood pressure is actually improved compared on admission, although it is not optimally controlled. We will increase minoxidil from 10 to 50 mg tablet daily. In addition, we will continue his other current antihypertensive regimen. If needed, we can restart back clonidine at 0.3 mg p.o. b.i.d. 2. End-stage renale disease, stable. We will continue current Friday, Friday, and Friday hemodialysis regimen. Fluid removal as tolerated. 3. Anemia. Continue to observe. Again, long discussion regarding compliance with this BP medications have been made. I feel we can hold off the IV Cardene drip at the moment. Job ID: [id number]
[2019-10-10] MEDS ORDERED: Labetalol 100 MG TAB PO SCH (12:15)
[2019-10-10] MEDS ORDERED: Lisinopril 20 MG TAB PO SCH ×2 (12:15→21:00)
--- NOTE | 2019-10-10 13:15 | PDOC.HOSPP ---
- Subjective Subjective: Pt had some CP yday when his SBP was in the 180's but CP has resolved. BP still remains high and pt is still asymptomatic. - Objective Vital Signs & Weight: Vital Signs (12 hours) Temp Pulse Resp BP BP Pulse Ox 10/10/19 13:10 156/82 H 10/10/19 12:46 99 10/10/19 12:25 97.9 F 89 16 229/125 H 99 10/10/19 12:10 94 238/124 H 10/10/19 12:00 98.4 F 10/10/19 08:58 83 218/124 H 10/10/19 08:14 91 218/124 H 10/10/19 08:00 98.7 F 10/10/19 07:37 99 10/10/19 03:00 98.7 F Weight Admit Weight 171 lb Weight 171 lb 15.369 oz Most Recent Monitor Data Heart Rate from ECG 92 NIBP 238/124 NIBP BP-Mean 162 Respiration from ECG 12 SpO2 97 I&O: 10/09/19 10/10/19 10/11/19 06:59 06:59 06:59 Intake Total 1027 1025 200 Output Total 950 1000 150 Balance 77 25 50 Result Diagrams: 10/09/19 03:22 10/09/19 03:22 Hospitalist ROS - Review of Systems Constitutional: denies: fever, chills, sweats, weakness, malaise, other Eyes: denies: pain, vision change, conjunctivae inflammation, eyelid inflammation, redness, other ENT: denies: ear pain, ear discharge, nose pain, nose discharge, nose congestion , mouth pain, mouth swelling, throat pain, throat swelling, other Respiratory: denies: cough, dry, shortness of breath, hemoptysis, SOB with excertion, pleuritic pain, sputum, wheezing, other Cardiovascular: denies: chest pain, palpitations, orthopnea, paroxysmal noc. dyspnea, edema, light headedness, other Gastrointestinal: denies: nausea, vomiting, abdominal pain, diarrhea, constipation, melena, hematochezia, other Genitourinary: denies: dysuria, frequency, incontinence, hematuria, retention, other Musculoskeletal: denies: neck pain, shoulder pain, arm pain, back pain, hand pain, leg pain, foot pain, other Skin: denies: rash, lesions, vernon, bruising, other Neurological: denies: weakness, numbness, incoordination, change in speech, confusion, seizures, other - Medication Medications: Active Medications Generic Name Dose Route Start Last Admin Trade Name Freq PRN Reason Stop Dose Admin Acetaminophen 650 mg 10/08/19 20:34 10/09/19 21:01 Tylenol PO 650 mg Q4H PRN Administration Headache/Fever/Mild Pain (1-3) Hydrocodone Bitart/Acetaminophen 1 tab 10/08/19 20:34 10/09/19 20:15 [place] 5/325 PO 1 tab Q4H PRN Administration Moderate Pain (4-6) Al Hydroxide/Mg Hydroxide 30 ml 10/08/19 20:34 10/08/19 20:26 Maalox PO 30 ml Q6H PRN Administration Heartburn or Indigestion Calcitriol 0.25 mcg 10/09/19 09:00 10/10/19 08:59 Rocaltrol PO 0.25 mcg DAILY STEVEN Administration Enoxaparin Sodium 30 mg 10/09/19 09:00 10/10/19 08:58 Lovenox SC 30 mg 0900 STEVEN Administration Hydralazine HCl 100 mg 10/09/19 21:00 10/10/19 08:58 Apresoline PO 100 mg TID STEVEN Administration Labetalol HCl 10 mg 10/09/19 17:02 10/10/19 08:14 Normodyne SLOW IVP 10 mg Q4H PRN Administration SBP Greater Than 180 Labetalol HCl 300 mg 10/10/19 12:15 10/10/19 12:10 Normodyne PO 10/10/19 14:15 300 mg NOW STEVEN Administration Lisinopril 20 mg 10/10/19 12:15 10/10/19 12:10 Zestril PO 10/10/19 15:00 20 mg NOW STEVEN Administration Nifedipine 60 mg 10/09/19 21:00 10/10/19 08:58 Procardia Xl PO 60 mg BID STEVEN Administration Ondansetron HCl 4 mg 10/08/19 20:34 10/09/19 21:07 Zofran IVP 4 mg Q6H PRN Administration Nausea/Vomiting Sodium Chloride 10 ml 10/09/19 09:00 10/10/19 08:59 Flush - Normal Saline IVF 10 ml Q12HR STEVEN Administration Tramadol HCl 50 mg 10/09/19 21:29 10/09/19 21:34 Ultram PO 50 mg Q8H PRN Administration Moderate Pain (4-6) - Exam General Appearance: NAD, awake alert Eye: PERRL, anicteric sclera ENT: normocephalic atraumatic, moist mucosa Neck: supple, symmetric, no JVD, no thyromegaly Heart: RRR, no murmur, no gallops, no rubs Respiratory: CTAB, no wheezes, no rales, no ronchi Gastrointestinal: soft, non-tender, non-distended, normal bowel sounds Extremities: no cyanosis, no edema Skin: no lesions, no rashes Neurological: cranial nerve grossly intact, no focal deficits Musculoskeletal: normal tone, normal strength, no muscle wasting Psychiatric: normal affect, normal behavior, A&O x 3 Hosp A/P - Plan Hosp A/P (1) Accelerated hypertension Code(s): I10 - ESSENTIAL (PRIMARY) HYPERTENSION Status: Acute Plan: Also being followed by Nephrology. Pt is s/p HD and cardizem has been d/c . Nephrology wants pts BP to be controlled via oral meds. Have initially changed pt's meds to Nifedipine 60 mg BID and hydralazine 100 mg TID and Bp is still high. Pt also says he wont take Hydralzine at 100 mg TID, so will decrease back to 50 mg TID, add labetalol, 300 mg TID and Lisinopril 20 mg BID. Will cont to cover with PRN Labetalol and monitor BP overnight. Have d/c Clonidine due to rebound HTN and d/w this with Dr Zapata. Will cont to adjust meds for better BP control. (2) ESRD (end stage renal disease) Code(s): N18.6 - END STAGE RENAL DISEASE Status: Acute Plan: s/p HD on friday. Will cont HD per nephrology schedule. (3) Anemia of renal disease Code(s): N18.9 - CHRONIC KIDNEY DISEASE, UNSPECIFIED; D63.1 - ANEMIA IN CHRONIC KIDNEY DISEASE Status: Chronic Plan: Stable, monitor Hg. (4) Hypokalemia Code(s): E87.6 - HYPOKALEMIA Status: Acute Plan: s/p HD. Will monitor K. - Plan PPx: SCDs. CODE: FULL. Dispo: Cont current mgt. Control BP.
[2019-10-10] MEDS: Ondansetron PF 4 MG/2 ML Vial IVP PRN (13:51)
[2019-10-10] MEDS: Labetalol 100 MG TAB PO SCH ×2 (14:22→20:28)
[2019-10-10] MEDS: HYDROcodone/Acetaminophen 5/325 mg Tablet PO PRN (14:35)
[2019-10-10] MEDS ORDERED: hydrALAZINE 25 MG TAB PO SCH (15:00)
[2019-10-10] MEDS ORDERED: NIFEdipine XL 60 MG TAB PO PRN (20:21)
[2019-10-10] MEDS: Zolpidem Tartrate 5 MG TAB PO PRN (20:28)
[2019-10-10] MEDS ORDERED: ALPRAZolam 0.25 MG TAB PO SCH (20:30)
[2019-10-10] MEDS ORDERED: cloNIDine 0.2 MG TAB PO SCH (21:00)
[2019-10-11] MEDS ORDERED: Temazepam 15 MG CAP PO SCH (00:30)
[2019-10-11 05:46] LABS: #Eosinphils 0.2 thou/uL (0.0-0.7); #Lymphocytes 1.2 thou/uL (1.20-3.40); #Monocytes 0.7 thou/uL (0.11-0.59); #Neutrophils 2.6 thou/uL (1.40-6.50); %Basophils 0.9 % (0.0-1.0); %Eosinophils 4.8 % (0.0-10.0); %Lymphocytes 25.9 % (21.0-51.0); %Monocytes 13.8 % (0.0-10.0); %Neutrophils 54.5 % (42.0-75.0); Hemoglobin 10.8 g/dL (14.0-18.0); Mean Corpuscular HGB CONC 30.1 g/dL (32.0-36.0); Mean Corpuscular Hemoglobin 27.2 pg (27.0-31.0); Mean Corpuscular Volume 90.3 fL (78.0-98.0); Mean Platelet Volume 9.7 fL (7.4-10.4); Platelet Count 193 thou/uL (130-400); RBC Distribution Width 17.4 % (11.5-14.5); Red Blood Cell (RBC) Count 3.99 mill/uL (4.70-6.10); White Blood Cell (WBC) Count 4.7 thou/uL (4.8-10.8)
[2019-10-11 06:09] LABS: Anion Gap 19 mmol/L (10-20); BUN (Urea Nitrogen) 31 mg/dL (8.9-20.6); Calc. Creatinine Clearance 14 mL/min (70-130); Calcium 9.2 mg/dL (7.8-10.44); Carbon Dioxide 25 mmol/L (22-29); Chloride 94 mmol/L (98-107); Estimated GFR-MDRD 9; Glucose 87 mg/dL (70-105); Potassium 3.5 mmol/L (3.5-5.1); Sodium 134 mmol/L (136-145)
[2019-10-11] MEDS ORDERED: Minoxidil 2.5 MG TAB PO SCH (09:00)
[2019-10-11] MEDS: Labetalol 100 MG TAB PO SCH (09:19)
[2019-10-11] MEDS: Calcitriol 0.25 MCG CAP PO SCH (09:19)
[2019-10-11] MEDS: Enoxaparin Sodium 30 MG/0.3 ML SYRINGE SC SCH (09:24)
--- NOTE | 2019-10-11 09:47 | PRG ---
DATE OF SERVICE: 10/11/2019 SUBJECTIVE: A 39-year-old gentleman, recurrent admission to the hospital with hypertensive crisis. His chronic renal failure is better. OBJECTIVE: VITAL SIGNS: Temperature 98, pulse 76 respiratory rate 18, sats 90%, blood pressure __124\76 . CHEST: No wheezing, crackles. CARDIAC: Normal S1, S2. No gallops. ABDOMEN: Soft. Creatinine 7.8. ASSESSMENT AND PLAN: Chronic renal failure, hypertensive crisis, poor compliance. Pulmonary Critical Care will follow at a distance. Disposition as per primary care physician. Job ID: [id number] MTDD
[2019-10-11] MEDS: HYDROcodone/Acetaminophen 5/325 mg Tablet PO PRN (10:44)
[2019-10-11] MEDS ORDERED: Sodium Chloride 0.9% 500 ML IV SCH (11:00)
[2019-10-11] MEDS: ALPRAZolam 0.25 MG TAB PO PRN ×2 (14:27→23:21)
--- NOTE | 2019-10-11 15:57 | PDOC.HOSPP ---
- Subjective Subjective: Pt's BP has trended lower with starting labetalol. He had gotten up today to walk across the room and felt dizzy. he lost his balance and fell to the ground but sustained no injuries Orthostatic orders for BP was requested and pt refused. he preferred to lay on the bed. He has been gven a NS IVF bolus. He is also c/o CP,. Currently however feels well - Objective Vital Signs & Weight: Vital Signs (12 hours) Temp Pulse Resp BP BP Pulse Ox 10/11/19 13:27 97.9 F 68 18 104/58 L 96 10/11/19 11:45 66 93/57 L 96 10/11/19 10:46 97/55 L 10/11/19 10:30 98 F 69 20 95/58 L 99 10/11/19 09:19 98 10/11/19 08:02 98.1 F 75 18 116/69 98 10/11/19 04:00 97.7 F 72 16 109/64 98 Weight Admit Weight 171 lb Weight 171 lb 15.369 oz Most Recent Monitor Data Heart Rate from ECG 92 NIBP 238/124 NIBP BP-Mean 162 Respiration from ECG 12 SpO2 97 I&O: 10/10/19 10/11/19 10/12/19 06:59 06:59 06:59 Intake Total 1025 800 Output Total 1000 150 Balance 25 650 Result Diagrams: 10/11/19 05:19 10/11/19 05:19 Hospitalist ROS - Review of Systems Constitutional: reports: weakness, malaise Eyes: denies: pain, vision change, conjunctivae inflammation, eyelid inflammation, redness, other ENT: denies: ear pain, ear discharge, nose pain, nose discharge, nose congestion , mouth pain, mouth swelling, throat pain, throat swelling, other Respiratory: denies: cough, dry, shortness of breath, hemoptysis, SOB with excertion, pleuritic pain, sputum, wheezing, other Cardiovascular: reports: chest pain, light headedness. denies: palpitations, orthopnea, paroxysmal noc. dyspnea, edema, other Gastrointestinal: denies: nausea, vomiting, abdominal pain, diarrhea, constipation, melena, hematochezia, other Genitourinary: denies: dysuria, frequency, incontinence, hematuria, retention, other Musculoskeletal: denies: neck pain, shoulder pain, arm pain, back pain, hand pain, leg pain, foot pain, other Skin: denies: rash, lesions, vernon, bruising, other Neurological: denies: weakness, numbness, incoordination, change in speech, confusion, seizures, other - Medication Medications: Active Medications Generic Name Dose Route Start Last Admin Trade Name Freq PRN Reason Stop Dose Admin Acetaminophen 650 mg 10/08/19 20:34 10/09/19 21:01 Tylenol PO 650 mg Q4H PRN Administration Headache/Fever/Mild Pain (1-3) Hydrocodone Bitart/Acetaminophen 1 tab 10/08/19 20:34 10/11/19 10:44 [place] 5/325 PO 1 tab Q4H PRN Administration Moderate Pain (4-6) Al Hydroxide/Mg Hydroxide 30 ml 10/08/19 20:34 10/08/19 20:26 Maalox PO 30 ml Q6H PRN Administration Heartburn or Indigestion Alprazolam 0.25 mg 10/11/19 13:36 10/11/19 14:27 Xanax PO 0.25 mg BIDPRN PRN Administration Anxiety Calcitriol 0.25 mcg 10/09/19 09:00 10/11/19 09:19 Rocaltrol PO 0.25 mcg DAILY STEVEN Administration Enoxaparin Sodium 30 mg 10/09/19 09:00 10/11/19 09:24 Lovenox SC Not Given 0900 STEVEN Labetalol HCl 10 mg 10/09/19 17:02 10/10/19 08:14 Normodyne SLOW IVP 10 mg Q4H PRN Administration SBP Greater Than 180 Ondansetron HCl 4 mg 10/08/19 20:34 10/10/19 13:51 Zofran IVP 4 mg Q6H PRN Administration Nausea/Vomiting Sodium Chloride 10 ml 10/09/19 09:00 10/11/19 09:20 Flush - Normal Saline IVF 10 ml Q12HR STEVEN Administration Tramadol HCl 50 mg 10/09/19 21:29 10/09/19 21:34 Ultram PO 50 mg Q8H PRN Administration Moderate Pain (4-6) Zolpidem Tartrate 5 mg 10/10/19 14:28 10/10/19 20:28 Ambien PO 5 mg HSPRN PRN Administration .INSOMNIA - Exam General Appearance: NAD, awake alert Eye: PERRL, anicteric sclera ENT: normocephalic atraumatic, no oropharyngeal lesions Neck: supple, symmetric, no JVD, no thyromegaly Heart: RRR, no murmur, no gallops, no rubs, normal peripheral pulses Respiratory: CTAB, no wheezes, no rales, no ronchi Gastrointestinal: soft, non-tender, non-distended, normal bowel sounds Extremities: no clubbing, no edema Skin: normal turgor, no lesions, no rashes Neurological: cranial nerve grossly intact, no focal deficits Musculoskeletal: normal strength, no muscle wasting Psychiatric: normal affect, normal behavior, A&O x 3 Hosp A/P (1) Chest pain Code(s): R07.9 - CHEST PAIN, UNSPECIFIED Status: Acute Qualifiers: Chest pain type: unspecified Qualified Code(s): R07.9 - Chest pain, unspecified Plan: EKG was normal. Prior troponins were normal. Pt may have chronic angina/cardiac issues. Have consulted Cardiology will f/u with their recs. - Plan (1) Accelerated hypertension Code(s): I10 - ESSENTIAL (PRIMARY) HYPERTENSION Status: Acute Plan: Also being followed by Nephrology. Pt is s/p HD and cardizem has been d/c . Nephrology wants pts BP to be controlled via oral meds. Have d/c Clonidine due to rebound HTN and d/w this with Dr Zapata. Have initially changed pt's meds to Nifedipine 60 mg BID and hydralazine 100 mg TID and BP is still high. Pt also says he wont take Hydralzine at 100 mg TID, so meds were decreased back to 50 mg TID, add labetalol, 300 mg TID and Lisinopril 20 mg BID. Pt however was noted with low BP so Lisinioril, Adalat and hydralazine were dc. It appears that pt is most sensitive to labetalol. Upon low BP today, will decrease labetalol to 200 mg BID and decrease/ dc Minoxidil as tolerated. Will cont to adjust meds for better BP control. (2) ESRD (end stage renal disease) Code(s): N18.6 - END STAGE RENAL DISEASE Status: Acute Plan: s/p HD on Friday. Will cont HD per nephrology schedule. (3) Anemia of renal disease Code(s): N18.9 - CHRONIC KIDNEY DISEASE, UNSPECIFIED; D63.1 - ANEMIA IN CHRONIC KIDNEY DISEASE Status: Chronic Plan: Stable, monitor Hg. (4) Hypokalemia Code(s): E87.6 - HYPOKALEMIA Status: Acute Plan: s/p HD. Will monitor K. PPx: SCDs. CODE: FULL. Dispo: Cont current mgt. Control BP.
--- NOTE | 2019-10-11 18:59 | EKG ---
Test Reason : Blood Pressure : / mmHG Vent. Rate : 102 BPM Atrial Rate : 102 BPM P-R Int : 136 ms QRS Dur : 086 ms QT Int : 438 ms P-R-T Axes : 063 020 026 degrees QTc Int : 570 ms Sinus tachycardia Left atrial enlargement Left ventricular hypertrophy with repolarization abnormality Prolonged QT Abnormal ECG When compared with ECG of 11-AUG-2019 16:30, Significant changes have occurred Confirmed by NATALIIA DOWNS, SGopal (4) on 10/11/2019 6:59:14 PM Referred By: DEVIN Confirmed By:DR. Allen WILLIAM MD
--- NOTE | 2019-10-11 19:03 | EKG ---
Test Reason : STAT Blood Pressure : / mmHG Vent. Rate : 092 BPM Atrial Rate : 092 BPM P-R Int : 138 ms QRS Dur : 082 ms QT Int : 424 ms P-R-T Axes : 058 -07 108 degrees QTc Int : 524 ms Normal sinus rhythm Possible Left atrial enlargement Left ventricular hypertrophy Septal infarct , age undetermined Prolonged QT Abnormal ECG When compared with ECG of 08-OCT-2019 20:58, (Unconfirmed) Minimal criteria for Septal infarct are now Present T wave inversion now evident in Lateral leads Confirmed by NATALIIA DOWNS, DR. Villa (4) on 10/11/2019 7:03:31 PM Referred By: Confirmed By:DR. Allen WILLIAM MD
[2019-10-11] MEDS ORDERED: Sodium Chloride 0.9% 250 ML IV SCH (19:30)
--- NOTE | 2019-10-11 19:32 | PRG ---
DATE OF SERVICE: 10/11/2019 SUBJECTIVE: Mr. Chilel is a 39-year-old black male, admitted for labile hypertension, ESRD on maintenance hemodialysis and followed by the Renal Service for management of his ESRD. The patient was initially started on several antihypertensive regimen. However, in the last 24 hours, blood pressure started going down. As a result, all BP medications have been discontinued except the p.r.n. labetalol. In addition, we have maintained him on minoxidil now, but at a smaller dose from 15 to 10 mg. The rest of his medications are currently on hold. I will plan to steady up his blood pressure over time. Due to the low blood pressure, I have held off his dialysis today. OBJECTIVE: VITAL SIGNS: Blood pressure 104/58, heart rate 68, respiratory rate 18, temperature 97.9, and pulse ox 96% on room air. GENERAL: Awake, alert, and comfortable, not in distress. SKIN: Adequate turgor. HEENT: Pinkish conjunctivae. Anicteric sclerae. NECK: No neck mass. No carotid bruits. No JVD. CHEST: No deformities. LUNGS: Clear breath sounds. HEART: Normal sinus rhythm. No murmurs, gallops, or rubs. ABDOMEN: Globular, soft, and nontender. No masses. Positive for bowel sounds. Negative for epigastric bruits. GROIN: No inguinal lymphadenopathy. No femoral artery bruits. EXTREMITIES: No edema. No deformities. MEDICATIONS: Medications of October 11, 2019 reviewed. LABORATORY DATA: Laboratories of October 11, 2019; hemoglobin 10.8, sodium 134, potassium 3.5, chloride 94, carbon dioxide 25, BUN 31, creatinine 7.88, glucose 87, and calcium 9.2. ASSESSMENT/PLAN: 1. Labile hypertension-the blood pressure is now gone on the lower end and the patient is symptomatic. We have discontinued all BP medications except for minoxidil at a smaller dose of 10 mg tablet once a day. We will increase blood pressure medication and/or BP medications depending on how the BP will be in the next 24 hours. 2. Anemia-continue to observe. Resume Epogen once the hemoglobin is less than 10. 3. End-stage renal disease. We will resume hemodialysis tomorrow when the blood pressure is much improved. We will recheck basic metabolic panel and CBC in a.m. Job ID: [id number]
[2019-10-11] MEDS ORDERED: Labetalol 100 MG TAB PO SCH (21:00)
[2019-10-11] MEDS: Zolpidem Tartrate 5 MG TAB PO PRN (23:21)
--- NOTE | 2019-10-11 23:32 | EKG ---
Test Reason : Blood Pressure : / mmHG Vent. Rate : 067 BPM Atrial Rate : 067 BPM P-R Int : 130 ms QRS Dur : 090 ms QT Int : 522 ms P-R-T Axes : 070 044 166 degrees QTc Int : 551 ms Normal sinus rhythm Left ventricular hypertrophy with repolarization abnormality Prolonged QT Abnormal ECG When compared with ECG of 09-OCT-2019 20:41, (Unconfirmed) Minimal criteria for Septal infarct are no longer Present ST now depressed in Inferior leads T wave inversion now evident in Inferior leads Confirmed by Saúl BRIAN ([id number]) on 10/11/2019 11:31:52 PM Referred By: ANDREA Confirmed By:Saúl BRIAN
[2019-10-12 06:20] LABS: Anion Gap 16 mmol/L (10-20); BUN (Urea Nitrogen) 38 mg/dL (8.9-20.6); Carbon Dioxide 24 mmol/L (22-29); Chloride 97 mmol/L (98-107); Potassium 3.3 mmol/L (3.5-5.1); Sodium 134 mmol/L (136-145)
[2019-10-12 06:21] LABS: Calc. Creatinine Clearance 11 mL/min (70-130); Calcium 8.7 mg/dL (7.8-10.44); Estimated GFR-MDRD 7; Glucose 86 mg/dL (70-105)
[2019-10-12 06:40] LABS: Band 1 % (5-11); Hemoglobin 11.3 g/dL (14.0-18.0); Hypochromia SLIGHT = 6-15 cells (100X) (0-5/hpf); Lymphocytes 18 % (21-51); MDiff Complete? YES; Mean Corpuscular HGB CONC 31.5 g/dL (32.0-36.0); Mean Corpuscular Hemoglobin 28.1 pg (27.0-31.0); Mean Corpuscular Volume 89.2 fL (78.0-98.0); Mean Platelet Volume 9.4 fL (7.4-10.4); Monocytes 8 % (0-10); Neutrophil 73 % (42-75); Platelet Count 222 thou/uL (130-400); Platelet Morphology Comment Appears Adequate; RBC Distribution Width 17.3 % (11.5-14.5); Red Blood Cell (RBC) Count 4.03 mill/uL (4.70-6.10); White Blood Cell (WBC) Count 5.8 thou/uL (4.8-10.8)
--- NOTE | 2019-10-12 08:44 | PRG ---
DATE OF SERVICE: 10/12/2019 SUBJECTIVE: Mr. Chilel is a 39-year-old black male, who was initially admitted for labile hypertension. BP has much improved with several BP medications. In addition, he is undergoing hemodialysis. Please note the blood pressure has gone down, where he became symptomatic for that reason, most of his BP medications have been discontinued. He is now maintained on minoxidil at 10 mg tablet once a day. No new complaints today. OBJECTIVE: VITAL SIGNS: Blood pressure is 147/70, heart rate 78, respiratory rate 18, temperature 98.4, and pulse ox 97%. GENERAL: Awake, alert, comfortable. Not in distress. SKIN: Adequate turgor. HEENT: He has pinkish conjunctivae. Anicteric sclerae. No neck mass. No carotid bruits. No JVD. CHEST: No deformities. LUNGS: Clear breath sounds. HEART: Normal sinus rhythm. No murmurs, no gallops, no rubs. ABDOMEN: Globular, soft, nontender, no masses. EXTREMITIES: No edema. No deformities. MEDICATIONS: Of October 12, 2019, were reviewed. LABORATORY DATA: Laboratories of October 12, 2019: White count 5.8, hemoglobin 11.3. Sodium 134, potassium 3.3, chloride 97, carbon dioxide 24, BUN 38, creatinine 9.69, glucose 86, calcium 8.7. ASSESSMENT AND PLAN: 1. End-stage renal disease, stable. The patient was not dialyzed yesterday due to the low blood pressure. We are currently dialyzing him. Fluid removal of about 3 L will be done. 2. Hypertension, much improved. Continue minoxidil at 10 mg tablet once a day and increase as needed. We will resume BP medications depending on how the blood pressure is. 3. We were able to cannulate his AV fistula successfully. This has been cannulated several times. We will consult Surgery for removal of his dialysis catheter. Job ID: [id number]
[2019-10-12] MEDS ORDERED: Minoxidil 2.5 MG TAB PO SCH (09:00)
[2019-10-12] MEDS: Calcitriol 0.25 MCG CAP PO SCH (11:04)
[2019-10-12] MEDS: Enoxaparin Sodium 30 MG/0.3 ML SYRINGE SC SCH (11:05)
[2019-10-12 16:03] VITALS: BP 129/85; TEMP 98.1
--- NOTE | 2019-10-13 02:26 | DIS ---
DATE OF ADMISSION: 10/08/2019 DATE OF DISCHARGE: 10/12/2019 DISCHARGE DIAGNOSES: 1. Hypertensive urgency due to noncompliance, resolved. 2. Hypotension, transient, iatrogenic, resolved. 3. Demand ischemia of the myocardium secondary to #1, resolved. 4. End-stage renal disease with hemodialysis. 5. Medication noncompliance. 6. Anemia of chronic kidney disease. 7. Hypokalemia, mild. CONSULTATIONS: 1. Dr. Zapata with Nephrology Service. 2. Dr. Albrecht with Pulmonology Critical Care Service. PERTINENT LABORATORY AND X-RAY FINDINGS: Potassium ranged between 3.3 to 3.7. Creatinine ranged between 7.48 to 9.69. LFTs within normal limits. Troponin I 0.136. CBC showed a hemoglobin ranged between 10.3 to 11.3. Urine drug screen positive for cannabinoids. IMAGING: CT of the brain without contrast dated 10/08/2019 showed no acute intracranial process. HOSPITAL COURSE: The patient was initially admitted to the Critical Care Unit after presenting with hypertensive emergency. The patient with initial blood pressure in 289/167, placed on a Cardene infusion as well as transdermal nitroglycerin. The patient with noncompliance with his hemodialysis, presenting with hypertensive emergency. The patient's blood pressure did improve with Cardene infusion and initiation of hemodialysis. The patient received his hemodialysis sessions and stabilized clinically. The patient was resumed on his regular outpatient blood pressure regimen and overall blood pressure trend remained stable. I have examined the patient at the time of discharge and discussed followup instructions. The patient verbalized understanding and agreement ready for discharge on 10/12/2019. DISCHARGE MEDICATIONS: 1. Rocaltrol 0.25 mcg p.o. daily. 2. Clonidine 0.2 mg p.o. b.i.d. 3. Hydralazine 25 mg p.o. t.i.d. 4. Minoxidil 5 mg p.o. daily. 5. Procardia XL 60 mg p.o. daily. FOLLOWUP: The patient to follow up with Dr. Zapata with hemodialysis 3 times per week. CONDITION ON DISCHARGE: Stable. ACTIVITY: Ad-tio. DIET: Renal. CODE STATUS: Full. DISPOSITION: To home 10/12/2019. TIME SPENT: Total time preparing and coordinating discharge 32 minutes. Job ID: [id number]
--- NOTE | 2019-10-13 04:19 | PQF ---
ASUNCION FOURNIER CHARLES DO [id number] CLINICAL DOCUMENTATION CLARIFICATION FORM: POST DISCHARGE Addendum to original discharge summary date: ____ Late entry note date: __ DATE: 10/13/2019 ATTN: Sam Galaviz Please exercise your independent, professional judgment in responding to the clarification form. Clinical indicators are provided on the bottom of this form for your review Please check appropriate box(s): AMI TYPE: [ ] Acute Coronary Syndrome (ACS) without Acute UT meaning Unstable Angina [ ] NSTEMI (UT type I) [ x ] NSTEMI due to Demand Ischemia (AMI Type II) [ ] Demand Ischemia without UT [ ] STEMI (please also specify site and arterysee below) If STEMI, SITE:[ ] Anterior [ ] Apical [ ] Lateral [ ] Inferior [ ] Posterior [ ] Q Wave [ ] Septal [ ] Unable to Determine [ ] Other diagnosis [ ] Unable to determine In addition, please specify: Present on Admission (POA): [ x ] Yes [ ] No [ ] Unable to determine CLINICAL INDICATORS - SIGNS / SYMPTOMS / LABS Laboratory Chemistry 10/08 0.136 H&P p1 10/08 Dr Stewart History of having gone to his hemodialysis place this morning. His blood pressure was 270/165 H&P p1 10/08 Dr Stewart He is non-compliant with medication H&P p1 10/08 Dr Stewart He has complaints of heartburn at present which slowly turned into chest pain as I was examining him H&P p2 10/08 Dr Stewart EKG done shows sinus tach at 101 beat per minute. There are signs of LVH seen on the EKG RISKS: H&P p1 10/08 ESRD on hemodialysis H&P p1 10/08 Hypertension H&P p3 10/08 Hypertension Emergency Discharge summary p1 10/12 Demand ischemia of myocardium secondary to HTN urgency TREATMENTS: NOV 13 Nitroglycerin paste NOV 13 Cardene drip NOV 13 Clonidine NOV 13 Procardia (This form is maintained as a part of the permanent medical record) 2014 [employer] All Rights Reserved [email or web address]
== END 2019-10-12 16:11 | disposition home or self-care (01) | DRG 280 ==
LOC: ERS 16:11 → CCU 19:54 → T4-A 10-10 12:25
PROVIDERS: ADMIT Internal Medicine; ATTEND Internal Medicine
PROC: 5A1D70Z Performance of Urinary Filtration, Intermittent, Less than 6 Hours Per Day (ICD-10-PCS; principal; 2019-10-12)
DX: I16.0 Hypertensive urgency (principal); N18.6 End stage renal disease; I21.A1 Myocardial infarction type 2; I67.4 Hypertensive encephalopathy; I95.89 Other hypotension; I12.0 Hypertensive chronic kidney disease with stage 5 chronic kidney disease or end stage renal disease; D63.1 Anemia in chronic kidney disease; E87.6 Hypokalemia; F17.200 Nicotine dependence, unspecified, uncomplicated; Z99.2 Dependence on renal dialysis; Z91.14 Patient's other noncompliance with medication regimen; Z79.899 Other long term (current) drug therapy; Z91.15 Patient's noncompliance with renal dialysis
CPT/HCPCS: 36415; 70450; 80048; 80053; 80069; 80306; 80307; 82550; 82553; 84484; 85025; 90935; 93005; 93010; G0257; J0360; J1644; J1650; J2270; J2405; J7050

== ENCOUNTER 2020-03-06 03:03 | Inpatient (IN) | payer MEDICARE, MEDICAID ==
[2020-03-06] MEDS ORDERED: niCARdipine 20MG In NaCl 20 MG/200 ML BAG ONE (03:21)
[2020-03-06 03:49] LABS: INR-International Normal Ratio 1.2; Prothrombin Time 15.2 sec (12.0-14.7)
[2020-03-06 03:51] LABS: ALT (SGPT) 91 U/L (8-55); AST (SGOT) 64 U/L (5-34); Albumin 4.3 g/dL (3.5-5.0); Alkaline Phosphatase 104 U/L (40-110); Anion Gap 19 mmol/L (10-20); BUN (Urea Nitrogen) 63 mg/dL (8.9-20.6); Bilirubin, Total 0.7 mg/dL (0.2-1.2); Calc. Creatinine Clearance 0 mL/min (70-130); Calcium 8.5 mg/dL (7.8-10.44); Carbon Dioxide 21 mmol/L (22-29); Chloride 102 mmol/L (98-107); Estimated GFR-MDRD 10; Globulin 2.7 g/dL (2.4-3.5); Glucose 204 mg/dL (70-105); Potassium 3.6 mmol/L (3.5-5.1); Sodium 138 mmol/L (136-145)
[2020-03-06 03:52] LABS: Acetaminophen Less than 6.0 mcg/mL (10.0-30.0); Alcohol Less than 10 mg/dL (Less than 10); CK (CPK) 106 U/L (30-200); Salicylate Less than 8.0 mg/dL (15.0-30.0)
[2020-03-06 03:55] LABS: Hemoglobin 12.4 g/dL (14.0-18.0); Mean Corpuscular HGB CONC 31.9 g/dL (32.0-36.0); Mean Corpuscular Hemoglobin 28.3 pg (27.0-31.0); Mean Corpuscular Volume 88.8 fL (78.0-98.0); Mean Platelet Volume 9.4 fL (7.4-10.4); Platelet Count 212 thou/uL (130-400); RBC Distribution Width 18.3 % (11.5-14.5); Red Blood Cell (RBC) Count 4.38 mill/uL (4.70-6.10); White Blood Cell (WBC) Count 20.2 thou/uL (4.8-10.8)
[2020-03-06] MEDS ORDERED: Fentanyl 100 MCG/2 ML VIAL ONE ×2 (04:20→05:18)
[2020-03-06] MEDS ORDERED: Thrombin 5000 UNITS/5 ML VIAL ONE (04:22)
[2020-03-06] MEDS ORDERED: Vecuronium 10 MG VIAL ONE ×3 (05:18→11:40)
[2020-03-06] MEDS ORDERED: Fosphenytoin Sodium 500 mg/10 ml Vial ONE (05:24)
[2020-03-06 05:28] LABS: Anisocytosis SLIGHT = 6-15 cells (100X) (0-5/hpf); Band 3 % (5-11); Lymphocytes 6 % (21-51); MDiff Complete? YES; Monocytes 7 % (0-10); Neutrophil 84 % (42-75); Platelet Morphology Comment Appears Adequate
[2020-03-06] MEDS ORDERED: Sodium Chloride 0.9% 0 ML ONE (05:30)
[2020-03-06] MEDS ORDERED: Acetaminophen 650 MG Suppository PR PRN (05:55)
[2020-03-06] MEDS ORDERED: Ondansetron PF 4 MG/2 ML Vial IVP PRN (05:55)
[2020-03-06] MEDS ORDERED: Promethazine HCl 25 MG/ML VIAL SLOW IVP PRN (06:07)
[2020-03-06] MEDS ORDERED: HYDROmorphone 2 MG/ML VIAL SLOW IVP PRN (06:07)
[2020-03-06] MEDS ORDERED: Morphine Sulfate 2 MG/ML SYRINGE SLOW IVP PRN (06:07)
[2020-03-06] MEDS ORDERED: PACU-Morphine 4MG/ML VIAL SLOW IVP PRN (06:07)
[2020-03-06] MEDS ORDERED: Promethazine HCl 25 MG/ML VIAL IM PRN (06:07)
[2020-03-06] MEDS ORDERED: Ondansetron HCl/PF 4 MG/2 ML Vial IVP PRN (06:07)
[2020-03-06] MEDS ORDERED: Ventilator Sedation Protocol 1 EACH FS SCH (06:15)
[2020-03-06] MEDS ORDERED: fentaNYL Citrate/PF 2,000 MCG in Sodium Chloride 0.9% 60 ML IV SCH (06:22)
[2020-03-06] MEDS ORDERED: Lorazepam 2 MG/ML VIAL SLOW IVP PRN (06:22)
[2020-03-06] MEDS ORDERED: Morphine 2 MG/ML SYRINGE SLOW IVP PRN (06:22)
[2020-03-06] MEDS ORDERED: DISCONTINUE PREVIOUS NARCOTIC PAIN MEDICATIONS AND BENZODIAZEPINES FS SCH (06:22)
[2020-03-06] MEDS ORDERED: Fentanyl BOLUS 250 ML IVPB PRN (06:22)
[2020-03-06] MEDS ORDERED: Propofol BOLUS 1,000 MG/100 ML VIAL IV PRN (06:22)
[2020-03-06] MEDS ORDERED: Sodium Chloride For Inhalation 0.9% 3 ML NEB ONE (06:54)
[2020-03-06] MEDS ORDERED: Sodium Chloride 0.9% 20 ML ONE (07:00)
[2020-03-06] MEDS ORDERED: hydrALAZINE 20 MG/ML VIAL ONE ×4 (07:08→11:17)
--- NOTE | 2020-03-06 07:15 | PRG ---
DATE OF SERVICE: Mr. Chilel was found down hemiplegic on the left side by his mother. He was brought to the [facility], where he had CT demonstrated a substantially large right basal ganglia hemorrhage and systolic blood pressure in the 200 mmHg range. The patient was intubated and transferred to [place], where the plan was to take him immediately to the operating room. I should note his exam was GCS 3T with 4 mm, nonreactive right pupil and 2 mm nonreactive left pupil. Job ID: [id number]
[2020-03-06] MEDS ORDERED: Sodium Chloride 0.9% 40 ML ONE (07:35)
[2020-03-06] MEDS ORDERED: Norepinephrine 4 MG/4 ML VIAL ONE (07:55)
[2020-03-06] MEDS ORDERED: Lorazepam 2 MG/ML VIAL ONE ×2 (08:22→10:45)
[2020-03-06] MEDS ORDERED: Propofol 1,000 MG/100 ML VIAL IV ONE (08:42)
--- NOTE | 2020-03-06 08:49 | CT ---
EXAM: CT brain without contrast HISTORY: Status post craniotomy for hematoma evacuation COMPARISON: 03/06/2020 TECHNIQUE: Multiple contiguous axial images were obtained and a CT of the brain without contrast. FINDINGS: Interval postsurgical changes are seen along the right aspect of the calvarium. Pneumocepha amelia is from recent surgery. There is been evacuation of the large intraparenchymal hematoma. Blood is seen within both lateral ventricles. A ventriculostomy catheter is seen with its tip in the left l ateral ventricle. Blood is seen in the fourth ventricle. There is crowding of the basilar cisterns without downward herniation. Midline shift to the left of approximately 8 mm is seen. The visualized paranasal sinuses and mastoid air cells are well aerated. IMPRESSION: Postsurgical changes as above.
[2020-03-06 09:11] LABS: Actual Bicarbonate (HCO3a) 21.6 mEq/L (22-28); Base Excess (BEa) -3.1 mEq/L (-2.0 to +3.0); CO2 Tension 37.1 mmHg (35.0-45.0); Calcium, Ionized (arterial) 1.03 mmol/L (1.12-1.30); Hemoglobin (Hb) 11.3 g/dL (14.0-18.0); O2 Tension (PaO2), arterial 105.4 mmHg (80.0-100.0); Potassium - ABG Lab 3.53 mmol/L (3.70-5.30); pH, Arterial 7.38 (7.35-7.45)
[2020-03-06 09:13] LABS: ALV-art Gradient 204.725 (0-20); Puncture Site ART LINE
--- NOTE | 2020-03-06 09:28 | OP ---
DATE OF PROCEDURE: 03/06/2020 Modifier 57 should be added to this surgery as this was an emergency and I made the decision to operate on the day I saw the patient. CORRECTIONS CADET: Eliane Desai PA-C PREPROCEDURE DIAGNOSES: Intracranial hypertension with large right basal ganglia and insular hypertensive hemorrhage with midline shift, mass effect, and herniation, impending . POSTPROCEDURE DIAGNOSES: Intracranial hypertension with large right basal ganglia and insular hypertensive hemorrhage with midline shift, mass effect, and herniation, impending . PROCEDURE PERFORMED: 1. Right frontal craniotomy for intraparenchymal large hemorrhage evacuation. 2. Placement of external ventricular drain. DESCRIPTION OF PROCEDURE: This is an emergency. We proceeded as such without consent to attempt to save the patient's life. After proper patient, pause, and identification, the left Radha's point was identified. We initially planned to place a left frontal external ventricular drain; however, the size of the hemorrhage and the effacement of the ventricular system prevented any cannulation of the ventricle, as such we aborted this portion of the procedure and turned our attention to hair clipping in the right frontotemporoparietal scalp ? incision per standard flap designation was drawn out. This area was sterilely cleansed, prepared and draped. Proper patient, pause, and identification were carried out. The right frontotemporoparietal scalp was then opened and reflected in one flap with the temporalis muscle. Anjana holes were fashioned. A craniotomy was turned. The sphenoid wing was hemostased along with the middle meningeal artery. We opened the dura in a circular fashion and anchored it at the sphenoid wing and retracted it. The brain as expected was quite tense. I then went in through a middle frontal gyrus corticotomy approach, identified a large amount of hematoma. This was removed in its entirety all the way to the ventricular system, where the hematoma had broached the ependyma. I placed an external ventricular drain into the lateral ventricular cavity to diagnostically and therapeutically assess and evaluate and treat intracranial hypertension. This was secured to the scalp. The bone hemostasis was secured throughout and a significant irrigation occurred. The dura was then reapproximated and the bone flap reapproximated as well with titanium plates and screws. The wound was then closed in anatomic layers following placement of the subgaleal TOSHA drain. The patient was kept intubated and taken to the ICU. Job ID: [id number]
[2020-03-06] MEDS ORDERED: Morphine 2 MG/ML SYRINGE ONE (09:53)
--- NOTE | 2020-03-06 10:52 | RAD ---
CHEST 1 VIEW: INDICATION: History of intubation with hemorrhagic stroke. COMPARISON: Prior exam dated 03/06/2020. FINDINGS: Since the comparison examination, the patient remains intubated with gastric catheter placement. ET tube tip is now 5.5 cm from the level of the helen. This has been slightly retracted from the prior exam. There is improvement in the bilateral diffuse airspace opacity seen from the prior examinatio n most consistent with improved edema. Cardiomegaly persists. Tiny bilateral pleural effusions hilda in. No pneumothorax is evident. IMPRESSION: 1. Improving bilateral airspace disease consistent with improving edema. 2. Persistent cardiomegaly. POS: BH
[2020-03-06] MEDS ORDERED: PROPOFOL 200 MG/20 ML VIAL ONE (11:40)
[2020-03-06] MEDS ORDERED: Labetalol HCl 100 MG/20 ML VIAL ONE (11:40)
[2020-03-06] MEDS ORDERED: Sodium Chloride 0.9% 10 ML ONE (12:24)
[2020-03-06] MEDS: hydrALAZINE 20 MG/ML VIAL SLOW IVP PRN ×4 (13:48→23:29)
[2020-03-06] MEDS: CEFAZOLIN 2 GM in Premix Bag 1 BAG IVPB SCH ×3 (13:52→20:51)
[2020-03-06] MEDS: Sodium Chloride 0.9% 1,000 ML IV SCH ×2 (13:53→20:33)
[2020-03-06] MEDS: niCARdipine 40MG In NaCl 40 MG/200 ML BAG IVPB SCH ×4 (14:13→22:51)
[2020-03-06 14:29] LABS: Lactic Acid 1.9 mmol/L (0.5-2.2)
[2020-03-06] MEDS: Morphine 2 MG/ML SYRINGE SLOW IVP PRN ×3 (17:30→23:26)
[2020-03-06] MEDS: Propofol 1,000 MG/100 ML VIAL IV PRN (20:32)
[2020-03-06] MEDS: hydrALAZINE 20 MG/ML VIAL SLOW IVP SCH (20:51)
[2020-03-06] MEDS ORDERED: cloNIDine 0.1mg/24 Hour PATCH TD SCH (21:00)
[2020-03-06] MEDS: Enalaprilat Dihydrate 1.25 MG/ML VIAL SLOW IVP PRN (21:58)
[2020-03-07] MEDS: niCARdipine 40MG In NaCl 40 MG/200 ML BAG IVPB SCH ×3 (01:09→06:46)
[2020-03-07] MEDS ORDERED: Sodium Chloride 0.9% 20 ML ONE (02:19)
[2020-03-07] MEDS: Propofol 1,000 MG/100 ML VIAL IV PRN (03:00)
[2020-03-07] MEDS: Enalaprilat Dihydrate 1.25 MG/ML VIAL SLOW IVP PRN (04:33)
[2020-03-07] MEDS: CEFAZOLIN 2 GM in Premix Bag 1 BAG IVPB SCH ×2 (04:37→13:31)
[2020-03-07] MEDS: hydrALAZINE 20 MG/ML VIAL SLOW IVP SCH ×2 (04:37→14:00)
[2020-03-07 04:41] LABS: #Lymphocytes 0.8 thou/uL (1.20-3.40); #Monocytes 1.4 thou/uL (0.11-0.59); #Neutrophils 11.8 thou/uL (1.40-6.50); %Basophils 0.2 % (0.0-1.0); %Eosinophils 0.1 % (0.0-10.0); %Lymphocytes 5.4 % (21.0-51.0); %Monocytes 10.3 % (0.0-10.0); %Neutrophils 84.1 % (42.0-75.0); Hemoglobin 9.9 g/dL (14.0-18.0); Mean Corpuscular HGB CONC 31.9 g/dL (32.0-36.0); Mean Corpuscular Hemoglobin 28.2 pg (27.0-31.0); Mean Corpuscular Volume 88.6 fL (78.0-98.0); Mean Platelet Volume 8.5 fL (7.4-10.4); Platelet Count 191 thou/uL (130-400); RBC Distribution Width 18.3 % (11.5-14.5); Red Blood Cell (RBC) Count 3.52 mill/uL (4.70-6.10)
[2020-03-07 05:29] LABS: Anion Gap 20 mmol/L (10-20); BUN (Urea Nitrogen) 74 mg/dL (8.9-20.6); Calc. Creatinine Clearance 12 mL/min (70-130); Calcium 8.4 mg/dL (7.8-10.44); Carbon Dioxide 18 mmol/L (22-29); Chloride 104 mmol/L (98-107); Estimated GFR-MDRD 8; Glucose 145 mg/dL (70-105); Sodium 138 mmol/L (136-145)
--- NOTE | 2020-03-07 07:42 | CT ---
PRELIMINARY REPORT/DIRECT RADIOLOGY/EMERGENCY AFTER HOURS PROCEDURE EXAM: CT head without contrast CLINICAL HISTORY: CLOTTED VENTRIC COMPARISONS: CT - CT BRAIN WO CON - 03/06/2020 08:36 AM CDT TECHNIQUE: CT imaging of the head without contrast, with multiplanar reconstructions. FINDINGS: BRAIN: There is again a right frontal approach ventricular catheter in place with tip positioned at t he anterior septum pellucidum. The course of the catheter again projects through the anterior caudate . There are again postoperative changes from right frontal/parietal/pterional craniotomy. Decrease in the extent of postoperative pneumocephalus. Small amount of extra-axial hemorrhage over the right fr ontal and parietal convexity, without significant change from 03/06/2020. There is again a small amoun t of layering subdural hemorrhage over the right tentorial leaflet. Stable to slightly decreased righ t frontal and posterior sylvian fissure subarachnoid hemorrhage. Continued evolution of right lentifo rm nucleus parenchymal hemorrhage. There is again hemorrhage and parenchymal hypoattenuation along th e course of the right frontal catheter tract. Midline shift at the level of the foramen of Castillo quentin sures 8 mm, and is decreased from 03/06/2020. VENTRICLES/CSF SPACES: Lateral ventricular size is not significant change from 03/06/2020. Effacement of the third ventricle has slightly decreased. Unchanged effacement of the right temporal horn, atriu m, and body of the right lateral ventricle. There is again intraventricular hemorrhage within the lat eral ventricles, left greater than right, as well as third ventricular and fourth ventricular hemorrh age. Intraventricular hemorrhage is unchanged from 03/06/2020. ORBITS: Imaged orbits are normal. PARANASAL SINUSES: Small amount of right maxillary sinus mucosal thickening. Dependent fluid within t he left sphenoid cell. Persistent dependent fluid within the nasopharynx. MASTOID/MIDDLE EARS: Trace bilateral mastoid tip fluid. Middle ears are clear. BONES: Postcraniotomy changes. Unchanged appearance of small left frontal gael hole. SCALP SOFT TISSUES: Post surgical changes of the right scalp with skin venancio in place. OTHER: Partially visualized nasoenteric tubes. IMPRESSION: 1. Postoperative changes from right frontal/parietal/pterional craniotomy. 2. Unchanged right convexity and tentorial leaflet extra-axial hemorrhage, right frontal and sylvian fissure subarachnoid hemorrhage, right lentiform nucleus parenchymal hemorrhage, and intraventricular hemorrhage. 3. Unchanged positioning of right frontal approach ventricular catheter. The catheter tip again cours es to the anterior right caudate. 4. Slight decrease in right lateral ventricular and third ventricular effacement. Midline shift is mi ldly decreased. ELECTRONICALLY SIGNED BY: Roldan Zavala MD Mar 07, 2020 1:05:30 AM CDT FINAL REPORT I agree with the preliminary report provided. There is postprocedural change of evacuation of a large intraparenchymal hemorrhage centered within t he right basal ganglia has improved. The residual intraparenchymal hemorrhage centered within the ba ja ganglia measures 5 x 1.9 cm. Right frontal ventriculostomy catheter is unchanged in position. T he [id number]-[id number] midline shift is mildly improved to 10 mm where it previously measured 11 mm. The e xtent of the pneumocephalus and subarachnoid hemorrhage overlying the right frontal parotid convexity has improved. The extent of the ventricular hemorrhage is similar-appearing. No fahad hydrocephalu s is noted. Continued CT followup is recommended. POS: LOU
[2020-03-07 08:17] LABS: Actual Bicarbonate (HCO3a) 19.3 mEq/L (22-28); Base Excess (BEa) -3.7 mEq/L (-2.0 to +3.0); CO2 Tension 28.3 mmHg (35.0-45.0); Calcium, Ionized (arterial) 1.08 mmol/L (1.12-1.30); Carboxyhemoglobin (COHb) 0.7 gm% (0.0-3.0); Hemoglobin (Hb) 10.4 g/dL (14.0-18.0); O2 Tension (PaO2), arterial 137.3 mmHg (80.0-100.0); Potassium - ABG Lab 3.88 mmol/L (3.70-5.30); pH, Arterial 7.45 (7.35-7.45)
[2020-03-07 08:20] LABS: ALV-art Gradient 112.525 (0-20); Puncture Site LINE
[2020-03-07] MEDS ORDERED: Minoxidil 2.5 MG TAB PO SCH (09:00)
[2020-03-07] MEDS ORDERED: cloNIDine 0.3mg/24 Hour PATCH TD SCH (09:00)
[2020-03-07] MEDS ORDERED: Scopolamine 1.5 mg/72 hour Patch TOP SCH (09:00)
--- NOTE | 2020-03-07 09:23 | CON ---
DATE OF CONSULTATION: HISTORY OF PRESENT ILLNESS: Mr. Chilel is a 39-year-old black male with ESRD and was admitted for mental status change. He was found to have an intracranial bleed. He underwent an emergent craniotomy on March 06, 2006 and large intraparenchymal hemorrhage was evacuated. We are now consulting for this patient for his hemodialysis as well as management of his labile hypertension. Please note, this patient has poorly controlled hypertension secondary to noncompliance. He has been advised several times in the past regarding intake of regular blood pressure medicine, which he has not followed. REVIEW OF SYSTEMS: Currently not obtainable since the patient is sedated. MEDICATIONS: 1. Cefazolin 2 g IV q.8. 2. Clonidine TTS one patch q.3 days. 3. Enalapril at 1.25 mg IV q.6 p.r.n. 4. Fosphenytoin 300 mg IV at bedtime. 5. Hydralazine 25 mg IV q.8 hours. 6. Nicardipine drip. PAST MEDICAL HISTORY: 1. ESRD, currently on maintenance hemodialysis - Friday, Friday, and Friday. 2. Longstanding hypertension, poorly controlled due to noncompliance. 3. 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 4. History of anemia with schistocytes. PAST SURGICAL HISTORY: Status post right ankle surgery, status post cuffed hemodialysis catheter placement, status post AV fistula placement, and recently status post craniotomy. SOCIAL HISTORY: The patient is single, lives with his mother in [place]. 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 Smokes marijuana on a regular basis. Smoked one pack a day for the last 17 years. Occasional alcohol. Status post blood transfusion. Denies any IV drug use. FAMILY HISTORY: No family history of ESRD. ALLERGIES: NONE. TRAUMA: Status post right ankle fracture. IMMUNIZATIONS: Up-to-date. HOSPITALIZATIONS: Please see past medical history. PHYSICAL EXAMINATION: VITAL SIGNS: Blood pressure is 169/79 with heart rate of 79, respiratory rate 18, O2 saturation 100%. Arterial BP is measured at 148/70. GENERAL: The patient is sedated and intubated, on ventilator support. SKIN: Adequate turgor. HEENT: Pinkish conjunctivae. Anicteric sclerae. NECK: No neck mass. No carotid bruits. No JVD. CHEST: No deformities. LUNGS: Clear breath sounds. No wheezing. No crackles. HEART: Normal sinus rhythm. No murmur. No gallops. No rubs. ABDOMEN: Globular, soft, and nontender. No masses. EXTREMITIES: No edema. No deformities. NEUROLOGICAL: The patient is sedated and on ventilator support. LABORATORY DATA: On March 07, 2020; white count 14, hemoglobin 9.9. Sodium 138, potassium 4, chloride 104, carbon dioxide 18, BUN 74, creatinine 9.01, glucose 145, and calcium 8.4. IMAGING DATA: On March 07, 2020, CT scan of the brain shows status post evacuation of intraparenchymal hemorrhage centered within the right basal ganglia. There is a residual intraparenchymal hemorrhage. In addition, right ventriculostomy catheter was noted. The [id number] midline shift is also mildly improved. ASSESSMENT AND PLAN: 1. Intracranial bleed - status post craniotomy with evacuation hematoma, stable. Neurosurgery is following. 2. Labile hypertension. I have decided to add minoxidil 5 mg tablet daily with this patient. We will adjust it as needed. We will increase clonidine patch from TTS-1 to TTS-3 q.3 days. Otherwise, he will continue with the current antihypertensive regimen. 3. End-stage renal disease. The patient is currently undergoing hemodialysis. Fluid removal as tolerated. Attempting 3.5 L fluid removal. No heparin use due to the recent intracranial bleed. Overall, prognosis remains guarded. Job ID: [id number] MTDD
[2020-03-07 09:44] LABS: HBSAg Index 0.22 S/CO (0-0.99); Hep B Surf Ag Non-Reactive S/CO (NonReactive)
[2020-03-07] MEDS ORDERED: niCARdipine 50 MG in Sodium Chloride 0.9% 250 ML 230 ML IVPB SCH (09:45)
--- NOTE | 2020-03-07 10:04 | CON ---
DATE OF CONSULTATION: 03/07/2020 TIME SPENT: 35 minutes of critical care time. HISTORY OF PRESENT ILLNESS: The patient is a 39-year-old male, who presented yesterday with a hypertensive hemorrhage and was taken to the operating room by Dr. Stone for further therapy. He had been found down, hemiplegic on the left side by his mother. He has substantial large right basal ganglia hemorrhage with elevated systolic blood pressure. He was left intubated after ventriculostomy was placed. PAST MEDICAL HISTORY: 1. Uncontrolled hypertension. 2. End-stage renal disease, requiring hemodialysis. 3. Right ankle surgery. 4. Tunneled dialysis catheter placement in the right chest in the past. ALLERGIES: NONE. SOCIAL HISTORY: He has a history of marijuana and ecstasy use in the past. I am not sure if he is using anything currently. Does not smoke. Does not consume alcohol. MEDICATIONS: Prior to admission, he is supposed to be taking nifedipine, minoxidil, but apparently is not. Current inpatient medications reviewed. See chart. REVIEW OF SYSTEMS: Cannot be obtained secondary to the patient being intubated on mechanical ventilation. PHYSICAL EXAMINATION: VITAL SIGNS: Heart rate 91, blood pressure 148/70, O2 saturation 100%. He is currently on a nicardipine drip of 50 mg/minute. His temperature is 99. GENERAL: The patient will awaken. He will follow commands on the right side, but could not follow any commands on the left. HEENT: Pupils 3 mm, reactive. Sclerae are anicteric. Oropharynx, ET tube placed. NECK: No adenopathy or JVD. LUNGS: Clear anteriorly. CARDIAC: S1 and S2, regular without audible murmur. ABDOMEN: Soft and nontender. EXTREMITIES: No clubbing, cyanosis, or edema. DIAGNOSTIC DATA: His chest x-ray demonstrates cardiomegaly without evidence of mass, effusion, or infiltrate. He has endotracheal tube in place. White blood cell count 14, hematocrit 31, and platelet count 191. INR 1.2. PH of 7.45, pCO2 of 28, pO2 of 137, SIMV rate 14, tidal volume 500, PEEP 5, pressure support 10, FiO2 of 40% subsequently decreased to 10. Sodium 138, potassium 4, chloride 104, CO2 of 18, BUN 74, creatinine 9.0, and glucose 145. ASSESSMENT: 1. Hypertensive bleed with left-sided hemiparesis. 2. Acute respiratory failure, requiring mechanical ventilation. 3. End-stage renal disease, requiring hemodialysis. 4. Noncompliant with antihypertensive medications. PLAN: 1. I would leave him intubated at least one more day to see how he improves neurologically. 2. Continue nicardipine. 3. Initiate tube feeds. 4. Recheck labs tomorrow. 5. Dr. Albrecht has seen him in the past. I will inform him of the patient's hospitalization. Job ID: [id number]
[2020-03-07 10:40] LABS: HBSAB Concentration 6.62 mIU/mL; Hep B Surf AB NonReactive (NonReactive)
[2020-03-07] MEDS ORDERED: Norepinephrine 8 MG/0.9% NS 250 ML ONE (10:42)
--- NOTE | 2020-03-07 11:38 | CT ---
CT BRAIN NONCONTRAST: DATE: 03/07/2020 11:10 AM HISTORY: 39-year-old male with altered mental status, follow-up intracranial hemorrhage. Dr. Romero notified Dr. Stone of the interval change in findings by text message at 11:33 AM 03/07/2020. Dr. Stone texted reply in less than 1 minute. COMPARISON: 03/07/2020 12:42 AM FINDINGS: Images are degraded by patient motion. Right frontotemporal parietal craniotomy with overlying skin s taples. Ventriculostomy catheter entering through right parietal gael hole very close to coronal suture with distal tip at medial edge of left frontal horn. The previously demonstrated 1 cm right to left midline shift of the septum pellucidum is currently ap proximately 1.1 cm. There is interval worsening of effacement and narrowing of the right lateral ventricle. There has been interval worsening of effacement and narrowing of the third ventricle. Agai n noted is the mild dilation of left temporal horn. Complete effacement of the ambient cistern/perimesencephalic cistern, appears minimally worse. Intra-axial hematoma centered in right ba ja ganglia unchanged. Subarachnoid hemorrhage on the right side, and right subdural hemorrhage and postoperative air are ag ain noted. Interval progression or development of diffuse effacement of linder-white junction. This is difficult t o evaluate in the upper portions of the brain because of motion artifact. Intraventricular hemorrhage again noted. IMPRESSION: 1. Findings suggestive of increasing diffuse intracranial pressure, with loss of sulcal markings and loss of linder-white differentiation suggestive of possible global ischemia. 2. No major interval change in the right intra-axial, right subarachnoid, right subdural, and intrave ntricular, hemorrhage; and postoperative changes.
--- NOTE | 2020-03-07 12:38 | MRI ---
EXAM: MRI of the brain without contrast HISTORY: Intracranial hemorrhage status post evacuation with stroke COMPARISON: CT brain 03/07/2020 TECHNIQUE: Multiplanar multisequence MR images were obtained of the brain without IV contrast. FINDINGS: Postsurgical changes seen in the right cerebral hemisphere. There is a small amount of residual blood in the right basal ganglia. There is restricted diffusion within the right frontal and temporal lobe in an MCA distribution. A ventriculostomy catheter is seen with its tip near the anterior aspect of the left lateral ventricle. There is a small amount of intraventricular hemorrhage without hydronephrosis. A small amount of right extra-axial high T2 signal may represent a small amount of subdural blood. Susceptibility artifact in the left frontal lobe may represent a small amount of hemosiderin depositi on from previous catheter placement. The left carotid artery flow void is present. The right carotid artery flow void is absent with high T2 signal in the region of the carotid artery. Corpus callosum, pituitary, and craniocervical junction are within normal limits. The paranasal sinuses and mastoid air cells are well aerated. IMPRESSION: 1. Stable post operative changes in the right cerebral hemisphere with infarction of the majority of the right MCA distribution. 2. Possible occlusion of the right internal carotid artery
[2020-03-07] MEDS ORDERED: Norepinephrine 8 MG/0.9% NS 250 ML IVPB SCH (13:34)
--- NOTE | 2020-03-07 13:45 | PRG ---
DATE OF SERVICE: 03/07/2020 Unfortunately, Mr. Chilel suffered what appears a minimum right MCA stroke during dialysis. His hypertension has been extremely difficult to control, in fact, recalcitrant, and only 1.6 L total will be removed and this was quite slow. I have talked to Dr. Zapata as well. He had also been initiated on an antihypertensive regimen and it appears if he just simply was not able to tolerate fluid shifts and perhaps had hypoperfusion to the brain. At this time, CT shows global edema and MRI confirms a right MCA stroke, but that is the only area really that restricts diffusion. His GCS is 3T. His pupils are midposition and fixed at 5 mm. He has a no brainstem responses including no cough or gag, and again no pupillary responses and no corneal responses. He does not move at all to noxious stimuli. I am very concerned that Mr. Chilel has suffered a catastrophic ischemic injury to his brain and I have contacted his mother to return to the hospital as this appears to be unsurvivable. Job ID: [id number] MTDD
[2020-03-07 15:13] VITALS: BP 144/66
[2020-03-07 19:47] VITALS: TEMP 99
[2020-03-08] MEDS ORDERED: Pantoprazole 40 MG VIAL IVP SCH (09:00)
--- NOTE | 2020-03-11 16:55 | EKG ---
Test Reason : EMERGENCY Blood Pressure : / mmHG Vent. Rate : 068 BPM Atrial Rate : 068 BPM P-R Int : 152 ms QRS Dur : 098 ms QT Int : 506 ms P-R-T Axes : 059 -01 033 degrees QTc Int : 538 ms Normal sinus rhythm Possible Left atrial enlargement Left ventricular hypertrophy with repolarization abnormality Prolonged QT Abnormal ECG Confirmed by BASILIO Luu, JEOVANNY ([id number]), dictionary editor RADHA FAIR ([id number]) on 03/11/2020 4:55:23 PM Referred By: Confirmed By:JEOVANNY RICHMOND M.D.
== END 2020-03-07 18:51 | disposition expired | DRG 23 ==
LOC: ERS 03:03 → SURG A 03:55 → CCU 13:28
PROVIDERS: ADMIT Specialist; ATTEND Specialist
PROC: 00C00ZZ Extirpation of Matter from Brain, Open Approach (ICD-10-PCS; principal; 2020-03-06)
PROC: 009600Z Drainage of Cerebral Ventricle with Drainage Device, Open Approach (ICD-10-PCS; 2020-03-06)
PROC: 5A1D70Z Performance of Urinary Filtration, Intermittent, Less than 6 Hours Per Day (ICD-10-PCS; 2020-03-06)
DX: I62.9 Nontraumatic intracranial hemorrhage, unspecified (principal); G93.5 Compression of brain; N18.6 End stage renal disease; J96.00 Acute respiratory failure, unspecified whether with hypoxia or hypercapnia; I12.0 Hypertensive chronic kidney disease with stage 5 chronic kidney disease or end stage renal disease; G81.94 Hemiplegia, unspecified affecting left nondominant side; G93.2 Benign intracranial hypertension; Z91.14 Patient's other noncompliance with medication regimen
CPT/HCPCS: 51702; 70450; 70551; 71045; 80048; 80185; 80307; 82805; 83605; 85025; 86706; 86850; 86900; 86901; 87340; 90935; 93005; 94002; 94003; 94760; 96365; G0257; J0360; J0690; J1165; J2060; J2270; J2704; J3010; J3490; J7050; Q2009